=== PATIENT | female | born 1980 | race Caucasian/White ===

== ENCOUNTER 2017-09-10 20:38 | Emergency (ER) | END 2017-09-10 22:14 | disposition left against medical advice (07) ==

== ENCOUNTER 2018-07-17 08:32 | Outpatient (CLI) | END 2018-07-17 10:00 | disposition home or self-care (01) ==

== ENCOUNTER 2018-07-22 14:27 | Inpatient (IN) | END 2018-07-24 18:30 | disposition home or self-care (01) | DRG 807 ==

== ENCOUNTER 2018-12-01 15:50 | Inpatient (IN) | payer MEDICAID ==
[~2018-12-01] VITALS: Ht 162.6 cm; Wt 83.1 kg
[~2018-12-01 15:50] MED LIST: PRENAT PO
[2018-12-01] MEDS ORDERED: SOD CHLORIDE 0.9% 1,000 ML IV STA (16:01)
[2018-12-01] MEDS ORDERED: morphine 4 MG/ML VIAL IV STA ×2 (16:01→16:18)
[2018-12-01] MEDS ORDERED: ONDANSETRON 4 MG INJ IV STA ×2 (16:01→16:18)
[2018-12-01] MEDS ORDERED: LIDOCAINE/MYLANTA 40 ML BTL PO STA (16:18)
[2018-12-01] MEDS ORDERED: FAMOTIDINE 20 MG INJ IV STA (16:18)
[2018-12-01] MEDS ORDERED: HYDROmorphONE 0.5 MG/0.5 ML SYG IV STA (17:55)
--- NOTE | 2018-12-01 18:16 | ERD ---
ER Documentation Chief Complaint Chief Complaint SEVERE ABDOMINAL PAIN; VOMITTING HPI During the patient's encounter translation services were utilized Language: Guatemalan Source: In person 38-year-old female with history of gallstones presents with epigastric and right upper quadrant abdominal pain with migratory pain to the back. Pain is 8 out of 10, associated nonbloody nonbilious emesis. No chest pain or chest pressure. No fevers or chills. Pain present for approximately 12 hours. ROS All systems reviewed and are negative except as per history of present illness. Medications Home Meds Discontinued Reported Medications Multivit/Min/Fol Ac/Iron/Pren* ( S*) 1 Tab Tab, 1 TAB PO DAILY, TAB 03/28/16 Allergies Allergies: Coded Allergies: No Known Allergy (Unverified , 12/01/18) PMhx/Soc History of Surgery: No Anesthesia Reaction: No Hx 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 Disorder: No Hx Respiratory Disorders: No Hx Cardiac Disorders: No Hx Psychiatric Problems: No Hx Miscellaneous Medical Probl: Yes (GALL STONES ) Hx Alcohol Use: No Hx Substance Use: No Hx Tobacco Use: No Smoking Status: Never smoker FmHx Family History: No diabetes Physical Exam Vitals Vital Signs Date Temp Pulse Resp B/P (MAP) Pulse Ox O2 O2 Flow FiO2 Time Delivery Rate 12/01/18 56 18 140/76 99 Room Air 16:16 (97) 12/01/18 98.8 112 27 187/88 100 15:51 (121) Physical Exam General: Well developed, well nourished, no acute distress Head: Normocephalic, atraumatic. Eyes: Pupils equally reactive, EOM intact ENT: Moist mucous membranes Neck: Supple, no lymphadenopathy Respiratory: Lungs clear bilaterally, no distress Cardiovascular: RRR, no murmurs, rubs, or gallops Abdominal: Soft, mild epigastric tenderness without Wu sign. No tenderness to McBurney's point. : Deferred MSK: No edema, no unilateral swelling, 5/5 strength Neurologic: Alert and oriented, moving all extremities, normal speech, no focal weakness, no cerebellar signs Skin: No rash Psych: Normal mood Result Diagram: 12/01/18 1610 12/01/18 1610 Results 24 hrs Laboratory Tests Test 12/01/18 16:10 12/01/18 17:40 12/01/18 17:52 White Blood Count 13.0 10^3/ul Red Blood Count 5.51 10^6/ul Hemoglobin 15.5 g/dl Hematocrit 47.3 % Mean Corpuscular Volume 85.8 fl Mean Corpuscular Hemoglobin 28.1 pg Mean Corpuscular 32.8 g/dl Hemoglobin Concent Red Cell Distribution Width 13.0 % Platelet Count 322 10^3/UL Mean Platelet Volume 10.3 fl Immature Granulocytes % 0.400 % Neutrophils % 71.3 % Lymphocytes % 22.2 % Monocytes % 4.8 % Eosinophils % 1.0 % Basophils % 0.3 % Nucleated Red Blood Cells % 0.0 /100WBC Immature Granulocytes # 0.050 10^3/ul Neutrophils # 9.3 10^3/ul Lymphocytes # 2.9 10^3/ul Monocytes # 0.6 10^3/ul Eosinophils # 0.1 10^3/ul Basophils # 0.0 10^3/ul Nucleated Red Blood Cells # 0.0 10^3/ul Sodium Level 142 mmol/L Potassium Level 3.5 mmol/L Chloride Level 105 mmol/L Carbon Dioxide Level 26 mmol/L Anion Gap 11 Blood Urea Nitrogen 10 mg/dl Creatinine 0.74 mg/dl Est Glomerular Filtrat > 60 mL/min Rate mL/min Glucose Level 173 mg/dl Calcium Level 9.5 mg/dl Total Bilirubin 0.8 mg/dl Direct Bilirubin 0.00 mg/dl Indirect Bilirubin 0.8 mg/dl Aspartate Amino 611 IU/L Transf (AST/SGOT) Alanine 580 IU/L Aminotransferase (ALT/SGPT) Alkaline Phosphatase 248 IU/L Total Protein 7.9 g/dl Albumin 4.3 g/dl Globulin 3.60 g/dl Albumin/Globulin Ratio 1.19 Lipase 60906 U/L Urine Color YELLOW Urine Clarity SLIGHTLY CLOUDY Urine pH 5.0 Urine Specific [place] 1.009 Urine Ketones 1+ mg/dL Urine Nitrite NEGATIVE mg/dL Urine Bilirubin NEGATIVE mg/dL Urine Urobilinogen NEGATIVE mg/dL Urine Leukocyte Esterase NEGATIVE Georgie/ul Urine Microscopic RBC 1 /HPF Urine Microscopic WBC 4 /HPF Urine Squamous Epithelial Cells FEW /HPF Urine Hemoglobin 1+ mg/dL Urine Glucose NEGATIVE mg/dL Urine Total Protein NEGATIVE mg/dl POC Beta HCG, Qualitative NEGATIVE Current Medications Medications Dose Sig/Megan Start Time Status Last (Trade) Ordered Route PRN Stop Time Admin Dose Reason Admin Sodium 1,000 ml @ Q1H STAT 12/01/18 DC 12/01/18 Chloride 1,000 mls/hr IV 16:01 16:08 12/01/18 17:00 Morphine 4 mg ONCE STAT 12/01/18 DC 12/01/18 Sulfate IV 16:01 16:08 (morphine) 12/01/18 16:02 Ondansetron 4 mg ONCE STAT 12/01/18 DC 12/01/18 HCl (Zofran IV 16:01 16:08 Inj) 12/01/18 16:02 Morphine 4 mg ONCE STAT 12/01/18 DC 12/01/18 Sulfate IV 16:18 16:23 (morphine) 12/01/18 16:19 Ondansetron 4 mg ONCE STAT 12/01/18 DC 12/01/18 HCl (Zofran IV 16:18 16:23 Inj) 12/01/18 16:19 Famotidine 20 mg ONCE STAT 12/01/18 DC 12/01/18 (Pepcid Iv) IV 16:18 16:22 12/01/18 16:19 40 ml ONCE STAT 12/01/18 DC 12/01/18 Miscellaneous PO 16:18 16:23 Medication 12/01/18 16:20 (Gi Cocktail (2)) 1 mg ONCE STAT 12/01/18 DC 12/01/18 Hydromorphone IV 17:55 18:02 HCl 12/01/18 17:56 (Dilaudid) Ondansetron 4 mg BRIDGE ORDER 12/01/18 HCl (Zofran PRN IV 18:30 Inj) NAUSEA/VOMITI 12/02/18 18:29 NG 650 mg ER BRIDGE 12/01/18 Acetaminophen PRN PO 18:30 (Tylenol .MILD PAIN 12/02/18 18:29 Tab) 1-3 OR TEMP Procedures/MDM EKG, MONITORS, & DIAGNOSTIC IMAGING: Gallbladder ultrasound: IMPRESSION: Cholelithiasis without sonographic evidence of gallbladder wall thickening to suggest cholecystitis. Moderate dilatation of the common bile duct concerning for non-visualized choledocholithiasis. Mild heterogeneity of the pancreatic echotexture concerning for pancreatitis. MRCP can be obtained for further evaluation. RPTAT: [facility]ADD LAB INTERPRETATION: I reviewed the laboratory testing and it shows hepatobiliary obstruction with acute pancreatitis MEDICAL DECISION MAKING: Patient with known gallstones presents with abdominal pain, consider biliary colic, choledocholithiasis or gallstone pancreatitis. Patient is uncomfortable warranting ultrasound and laboratory testing. ER COURSE: * Laboratory testing and diagnostic imaging shows evidence of choledocholithiasis and gallstone pancreatitis. Patient given pain control, IV fluids and warrants hospitalization. * No signs or symptoms concerning for ascending cholangitis. No indication for antibiotics. The patient warrants GI consultation for MRCP, ERCP and likely nonemergent general surgeon consultation for cholecystectomy. CONSULTATION: Media Executive to be notified by the admitting team DISPOSITION PLAN: Accepting care team and consultations: I discussed the current laboratory data, diagnostic imaging and emergency care provided. Admitting team: Dr. Nixon Admitting team indication: Insurance directed Departure Diagnosis: Primary Impression: Acute gallstone pancreatitis Additional Impression: Choledocholithiasis Condition: Stable WENDY RODAS MD Dec 01, 2018 18:16
[2018-12-01] MEDS ORDERED: ONDANSETRON 4 MG INJ IV PRN ×2 (18:30→21:00)
[2018-12-01] MEDS ORDERED: ACETAMINOPHEN 325 MG TAB PO PRN (18:30)
[2018-12-01 20:23] VITALS: BP 123/75; PULSE 50; RESP 18
[2018-12-01 20:30] VITALS: Ht 162.6 cm; Wt 83.1 kg
[2018-12-01] MEDS ORDERED: NACL 0.9% 3 ML SYG IV SCH (21:00)
[2018-12-01] MEDS: DEXTROSE 5%-0.45% NACL 1,000 ML IV SCH (21:57)
[2018-12-01] MEDS: FAMOTIDINE 20 MG INJ IV SCH (21:58)
--- NOTE | 2018-12-01 23:41 | HP ---
Date/Time of Note Date/Time of Note DATE: 12/01/18 TIME: 23:41 Assessment/Plan VTE Prophylaxis SCD applied (from Nsg): Yes Pharmacological prophylaxis: NA/contraindicated Pharm contraindication: other (Awaiting surgical evaluation) Lines/Catheters IV Catheter Type (from Nrsg): Saline Lock Assessment/Plan Assessment/Plan 38-year-old female with a history of gallstones presents with abdominal pain secondary to gallstone pancreatitis and choledocholithiasis PLAN -Keep n.p.o. with IV fluid -Pain management -MRCP -GI and surgical consult Result Diagram: 12/01/18 1610 12/01/18 1610 Results 24hrs Laboratory Tests Test 12/01/18 16:10 12/01/18 17:40 12/01/18 17:52 White Blood Count 13.0 H Red Blood Count 5.51 #H Hemoglobin 15.5 # Hematocrit 47.3 #H Mean Corpuscular Volume 85.8 Mean Corpuscular Hemoglobin 28.1 L Mean Corpuscular 32.8 Hemoglobin Concent Red Cell Distribution Width 13.0 Platelet Count 322 # Mean Platelet Volume 10.3 Immature Granulocytes % 0.400 Neutrophils % 71.3 Lymphocytes % 22.2 Monocytes % 4.8 Eosinophils % 1.0 Basophils % 0.3 Nucleated Red Blood Cells % 0.0 Immature Granulocytes # 0.050 H Neutrophils # 9.3 H Lymphocytes # 2.9 Monocytes # 0.6 Eosinophils # 0.1 Basophils # 0.0 Nucleated Red Blood Cells # 0.0 Sodium Level 142 Potassium Level 3.5 Chloride Level 105 Carbon Dioxide Level 26 Anion Gap 11 Blood Urea Nitrogen 10 Creatinine 0.74 Est Glomerular Filtrat > 60 Rate mL/min Glucose Level 173 Calcium Level 9.5 Total Bilirubin 0.8 Direct Bilirubin 0.00 Indirect Bilirubin 0.8 Aspartate Amino 611 H Transf (AST/SGOT) Alanine 580 H Aminotransferase (ALT/SGPT) Alkaline Phosphatase 248 H Total Protein 7.9 Albumin 4.3 Globulin 3.60 H Albumin/Globulin Ratio 1.19 Lipase 42112 H Urine Color YELLOW Urine Clarity SLIGHTLY CLOUDY A Urine pH 5.0 Urine Specific [place] 1.009 Urine Ketones 1+ H Urine Nitrite NEGATIVE Urine Bilirubin NEGATIVE Urine Urobilinogen NEGATIVE Urine Leukocyte Esterase NEGATIVE Urine Microscopic RBC 1 Urine Microscopic WBC 4 Urine Squamous FEW Epithelial Cells Urine Hemoglobin 1+ H Urine Glucose NEGATIVE Urine Total Protein NEGATIVE POC Beta HCG, Qualitative NEGATIVE HPI/ROS Admit Date/Time Admit Date/Time Dec 01, 2018 at 18:02 Hx of Present Illness This is a 38-year-old female with a history of gallstones who presents the ER complaining of abdominal pain. Pain started hours before arrival to the ER. But somehow diffuse but mostly located in the mid abdomen radiating to her back and in the right upper quadrant area. When presented to ER, she is found to have elevated transaminases with AST and ALT of about 600. Lipase 31,000. Abdominal ultrasound shows the following Cholelithiasis without sonographic evidence of gallbladder wall thickening to suggest cholecystitis. Moderate dilatation of the common bile duct concerning for non-visualized choledocholithiasis. Mild heterogeneity of the pancreatic echotexture concerning for pancreatitis. . PMH/Family/Social Past Medical History Medical History: other (See HPI) Medications Current Medications Dextrose/Sodium Chloride 1,000 ml @ 120 mls/hr Q8H20M IV Last administered on 12/01/18at 21:57; Admin Dose 120 MLS/HR; Start 12/01/18 at 20:50 IV Flush (NS 3 ml) 3 ml PER PROTOCOL IV ; Start 12/01/18 at 21:00 Ondansetron HCl (Zofran Inj) 4 mg Q6H PRN IV NAUSEA/VOMITING; Start 12/01/18 at 21:00 Morphine Sulfate (morphine) 2 mg Q4H PRN IV .PAIN 7-10; Start 12/01/18 at 21:00 Famotidine (Pepcid Iv) 20 mg Q12 IV Last administered on 12/01/18at 21:58; Admin Dose 20 MG; Start 12/01/18 at 21:00 Coded Allergies: No Known Allergy (Unverified , 12/01/18) Past Surgical History Past Surgical Hx: other (See HPI) Family History Significant Family History: no pertinent family hx Social History Alcohol Use: none Smoking Status: Never smoker Drug Use: none Exam/Review of Systems Vital Signs Vitals Vital Signs Date Temp Pulse Resp B/P (MAP) Pulse Ox O2 O2 Flow FiO2 Time Delivery Rate 12/01/18 98.0 50 18 123/75 100 20:23 (91) 12/01/18 Room Air 18:51 Exam Constitutional: alert, oriented, well developed Head: normocephalic, atraumatic Eyes: EOMI, PERRL Respiratory: clear to auscultation, normal air movement Cardiovascular: regular rate and rhythm Gastrointestinal: tender Extremities: normal pulses KIERA GREER MD Dec 01, 2018 23:41
[2018-12-02 01:57] VITALS: BP 138/73; PULSE 52; RESP 16
[2018-12-02] MEDS: morphine 2 MG INJ IV PRN ×2 (02:07→17:15)
[2018-12-02] MEDS: DEXTROSE 5%-0.45% NACL 1,000 ML IV SCH ×4 (05:10→17:17)
[2018-12-02 07:26] VITALS: BP 127/75; PULSE 55; RESP 18
[2018-12-02] MEDS: FAMOTIDINE 20 MG INJ IV SCH ×2 (09:41→21:06)
--- NOTE | 2018-12-02 11:16 | PN ---
Date/Time of Note Date/Time of Note DATE: 12/02/18 TIME: 11:14 Assessment/Plan VTE Prophylaxis Risk score (from Ns)>0 risk: 1 SCD applied (from Ns): Yes Pharmacological prophylaxis: NA/contraindicated Pharm contraindication: low risk/ambulating Lines/Catheters IV C[facility]ter Type (from [facility]): Peripheral IV Assessment/Plan Hospital Course SUBJECTIVE: Continues to have abdominal pain. Denies any nausea /vomiting. OBJECTIVE: Physical Exam General: Obese, 38 year-old female lying in bed in no apparent distress. HEENT: Normocephalic, atraumatic. Eyes: Anicteric sclerae, conjunctivae clear. ENT: Nasal septum midline, oral mucosa moist. Neck supple, no JVD noticed. Respiratory: Bilaterally clear breath sounds. No use of accessory muscles of respiration. No adventitious breath sounds. Cardiovascular: S1, S2 heard. No murmurs or gallops. Abdomen: Soft and nondistended. Epigastric tenderness. Bowel sounds positive in all 4 quadrants. Genitourinary: Deferred. Extremities: No cyanosis, no clubbing, no edema. Peripheral pulses palpable. Neurologic: Cranial nerves II through XII grossly intact. The patient is awake, alert, and oriented. Skin: Normal skin turgor. No skin rashes. Labs & Vitals per chart ASSESSMENT & PLAN 38-year-old female with past medical history of gallstones who came to the emergency room with chief complaint of abdominal pain with evidence of underlying cholelithiasis and moderate dilation of the common bile duct concerning for choledocholithiasis. The patient also had underlying transaminitis without hyperbilirubinemia and pancreatitis. The patient was admitted to inpatient setting for further treatment and evaluation. 1. Symptomatic cholelithiasis; Possible underlying choledocholithiasis. -Keep n.p.o. -Continue pain control. -General surgery consult has been obtained -Gastroenterology consult has been obtained. -Pending MRCP. 2. Transaminitis without hyperbilirubinemia. -Most probably secondary to #1. -Management as per #1. 3. Pancreatitis. -Most probably gallstone pancreatitis. -Trend lipase levels. -Continue n.p.o. -Continue aggressive hydration. 4. Obesity. -BMI more than 31 kg/m square. -Will advise weight reduction. 5. Breast-feeding status. - consult. 6. Fluids, electrolytes, and nutrition. -N.p.o. except for medications. -Continue IV fluids. 7 DVT prophylaxis -Bilateral SCDs.. 8. Plan. -Continue pain control. -Continue IV fluids. -Await MRCP. The patient was seen in collaboration with Dr. Patino. Result Diagram: 12/02/18 0449 12/02/189 Results 24hrs Laboratory Tests Test 12/01/18 16:10 12/01/18 17:40 12/01/18 17:52 12/02/18 04:49 White Blood Count 13.0 H 11.0 H Red Blood Count 5.51 #H 5.06 Hemoglobin 15.5 # 14.2 Hematocrit 47.3 #H 44.1 Mean Corpuscular 85.8 87.2 Volume Mean Corpuscular 28.1 L 28.1 L Hemoglobin Mean Corpuscular 32.8 32.2 Hemoglobin Concen t Red Cell 13.0 13.2 Distribution Width Platelet Count 322 # 262 Mean Platelet 10.3 10.4 Volume Immature 0.400 0.300 Granulocytes % Neutrophils % 71.3 83.0 H Lymphocytes % 22.2 9.3 L Monocytes % 4.8 7.2 Eosinophils % 1.0 0.0 Basophils % 0.3 0.2 Nucleated Red 0.0 0.0 Blood Cells % Immature 0.050 H 0.030 Granulocytes # Neutrophils # 9.3 H 9.1 H Lymphocytes # 2.9 1.0 Monocytes # 0.6 0.8 Eosinophils # 0.1 0.0 Basophils # 0.0 0.0 Nucleated Red 0.0 0.0 Blood Cells # Sodium Level 142 141 Potassium Level 3.5 3.8 Chloride Level 105 104 Carbon Dioxide 26 29 Level Anion Gap 11 8 Blood Urea 10 10 Nitrogen Creatinine 0.74 0.60 Est Glomerular > 60 > 60 Filtrat Rate mL/min Glucose Level 173 133 # Calcium Level 9.5 8.3 L Total Bilirubin 0.8 0.5 Direct Bilirubin 0.00 0.00 Indirect 0.8 0.5 Bilirubin Aspartate Amino 611 H 494 H Transf (AST/SGOT) Alanine 580 H 593 H Aminotransferase (ALT/SGPT) Alkaline 248 H 192 H Phosphatase Total Protein 7.9 6.7 # Albumin 4.3 3.6 Globulin 3.60 H 3.10 Albumin/Globulin 1.19 1.16 Ratio Lipase 49944 H Urine Color YELLOW Urine Clarity SLIGHTLY CLOUDY A Urine pH 5.0 Urine Specific 1.009 [place] Urine Ketones 1+ H Urine Nitrite NEGATIVE Urine Bilirubin NEGATIVE Urine NEGATIVE Urobilinogen Urine Leukocyte NEGATIVE Esterase Urine Microscopic 1 RBC Urine Microscopic 4 WBC Urine Squamous FEW Epithelial Cells Urine Hemoglobin 1+ H Urine Glucose NEGATIVE Urine Total NEGATIVE Protein POC Beta HCG, NEGATIVE Qualitative Magnesium Level 2.2 Test 12/02/18 09:24 Prothrombin Time 13.8 Prothrombin Time 1.1 Ratio INR International 1.05 Normalized Ratio Exam/Review of Systems Exam Vitals Vital Signs Date Temp Pulse Resp B/P (MAP) Pulse Ox O2 O2 Flow FiO2 Time Delivery Rate 12/02/18 98.3 55 18 127/75 99 07:26 (92) 12/01/18 Room Air 18:51 Intake and Output 12/01/18 12/01/18 12/02/18 1515:00 23:00 07:00 IntakeIntake Total 1000 ml BalanceBalance 1000 ml Results Results 24hrs Laboratory Tests Test 12/01/18 16:10 12/01/18 17:40 12/01/18 17:52 12/02/18 04:49 White Blood Count 13.0 H 11.0 H Red Blood Count 5.51 #H 5.06 Hemoglobin 15.5 # 14.2 Hematocrit 47.3 #H 44.1 Mean Corpuscular 85.8 87.2 Volume Mean Corpuscular 28.1 L 28.1 L Hemoglobin Mean Corpuscular 32.8 32.2 Hemoglobin Concen t Red Cell 13.0 13.2 Distribution Width Platelet Count 322 # 262 Mean Platelet 10.3 10.4 Volume Immature 0.400 0.300 Granulocytes % Neutrophils % 71.3 83.0 H Lymphocytes % 22.2 9.3 L Monocytes % 4.8 7.2 Eosinophils % 1.0 0.0 Basophils % 0.3 0.2 Nucleated Red 0.0 0.0 Blood Cells % Immature 0.050 H 0.030 Granulocytes # Neutrophils # 9.3 H 9.1 H Lymphocytes # 2.9 1.0 Monocytes # 0.6 0.8 Eosinophils # 0.1 0.0 Basophils # 0.0 0.0 Nucleated Red 0.0 0.0 Blood Cells # Sodium Level 142 141 Potassium Level 3.5 3.8 Chloride Level 105 104 Carbon Dioxide 26 29 Level Anion Gap 11 8 Blood Urea 10 10 Nitrogen Creatinine 0.74 0.60 Est Glomerular > 60 > 60 Filtrat Rate mL/min Glucose Level 173 133 # Calcium Level 9.5 8.3 L Total Bilirubin 0.8 0.5 Direct Bilirubin 0.00 0.00 Indirect 0.8 0.5 Bilirubin Aspartate Amino 611 H 494 H Transf (AST/SGOT) Alanine 580 H 593 H Aminotransferase (ALT/SGPT) Alkaline 248 H 192 H Phosphatase Total Protein 7.9 6.7 # Albumin 4.3 3.6 Globulin 3.60 H 3.10 Albumin/Globulin 1.19 1.16 Ratio Lipase 59535 H Urine Color YELLOW Urine Clarity SLIGHTLY CLOUDY A Urine pH 5.0 Urine Specific 1.009 [place] Urine Ketones 1+ H Urine Nitrite NEGATIVE Urine Bilirubin NEGATIVE Urine NEGATIVE Urobilinogen Urine Leukocyte NEGATIVE Esterase Urine Microscopic 1 RBC Urine Microscopic 4 WBC Urine Squamous FEW Epithelial Cells Urine Hemoglobin 1+ H Urine Glucose NEGATIVE Urine Total NEGATIVE Protein POC Beta HCG, NEGATIVE Qualitative Magnesium Level 2.2 Test 12/02/18 09:24 Prothrombin Time 13.8 Prothrombin Time 1.1 Ratio INR International 1.05 Normalized Ratio Medications Medication Current Medications Dextrose/Sodium Chloride 1,000 ml @ 120 mls/hr Q8H20M IV Last administered on 12/02/18at 06:59; Admin Dose 120 MLS/HR; Start 12/01/18 at 20:50 IV Flush (NS 3 ml) 3 ml PER PROTOCOL IV ; Start 12/01/18 at 21:00 Ondansetron HCl (Zofran Inj) 4 mg Q6H PRN IV NAUSEA/VOMITING; Start 12/01/18 at 21:00 Morphine Sulfate (morphine) 2 mg Q4H PRN IV .PAIN 7-10 Last administered on at 02:07; Admin Dose 2 MG; Start 12/01/18 at 21:00 Famotidine (Pepcid Iv) 20 mg Q12 IV Last administered on 12/02/18at 09:41; Admin Dose 20 MG; Start 12/01/18 at 21:00 SE RENE NP Dec 02, 2018 11:16
--- NOTE | 2018-12-02 12:54 | PREAC ---
Date/Time of Note Date/Time of Note DATE: 12/02/18 TIME: 12:51 Anesthesia Eval and Record Evaluation Time Pre-Procedure Interview DATE: 12/02/18 TIME: 12:51 Age 38 Sex female NPO: 8 hrs Preoperative diagnosis cholelithiasis, pancreatitis, mod.dilation CBD, transaminitis without hyperbilirubinemia Planned procedure ERCP DR LYMAN Past Medical History Past Medical History: Includes Hepatic: Other (GALLSTONE PANCREATITIS) GI: Obesity (bmi 31 ) Psych: Anxiety : Other (has a 4-month old baby, lactating) Surgery & Anesthesia Issues No known issue Meds Anticoagulation: No Beta Ernestina within 24 hr: No Reason Beta Ernestina not given: Pt. not on B-Ernestina Discontinued Reported Medications Multivit/Min/Fol Ac/Iron/Pren* ( S*) 1 Tab Tab, 1 TAB PO DAILY, TAB 03/28/16 Current Medications Dextrose/Sodium Chloride 1,000 ml @ 120 mls/hr Q8H20M IV Last administered on 12/02/18at 06:59; Admin Dose 120 MLS/HR; Start 12/01/18 at 20:50 IV Flush (NS 3 ml) 3 ml PER PROTOCOL IV ; Start 12/01/18 at 21:00 Ondansetron HCl (Zofran Inj) 4 mg Q6H PRN IV NAUSEA/VOMITING; Start 12/01/18 at 21:00 Morphine Sulfate (morphine) 2 mg Q4H PRN IV .PAIN 7-10 Last administered on 12/02/18at 02:07; Admin Dose 2 MG; Start 12/01/18 at 21:00 Famotidine (Pepcid Iv) 20 mg Q12 IV Last administered on 12/02/18at 09:41; Admin Dose 20 MG; Start 12/01/18 at 21:00 Meds reviewed: Yes Allergies Coded Allergies: No Known Allergy (Unverified , 12/01/18) Allergies Reviewed: Yes Labs/Studies Labs Reviewed: Reviewed by anesthesiologist Result Diagram: 12/02/189 12/02/189 Laboratory Tests 12/02/18 04:49 test: Negative (serum HCG negative ) Pre-procedure Exam Last vitals Vital Signs Date Temp Pulse Resp B/P (MAP) Pulse Ox O2 O2 Flow FiO2 Time Delivery Rate 12/02/18 98.3 55 18 127/75 99 07:26 (92) 12/01/18 Room Air 18:51 Airway: Adequate mouth opening, Adequate thyromental dist Mallampati: Mallampati II Teeth: Normal Lung: Normal Heart: Normal ASA Physical Status ASA physical status: 2 Emergency: E Planned Anesthetic General/MAC: ETT Planned Pain Management Parenteral pain med, Local by surgeon Pre-operative Attestations Prior to commencing anesthesia and surgery, the patient was re-evaluated, there was verification of: *The patient's identity *The results of appropriate recent lab work and preoperative vital signs *The above evaluation not changing prior to induction *Anesthetic plan, risk benefits, alternative and complications discussed with patient/family; questions answered; patient/family understands, accepts and wishes to proceed. JANIS MAHARAJ Dec 02, 2018 12:54
--- NOTE | 2018-12-02 13:38 | CONS ---
DATE OF ADMISSION: 12/01/2018 DATE OF CONSULTATION: TYPE OF CONSULTATION: Gastroenterology. Dear Dr. Nixon: Thank you for asking me to see Mrs. Shalom Zelaya in GI consultation. HISTORY OF PRESENT ILLNESS: As you know, patient is a 38-year-old female who has been exper iencing epigastric right upper quadrant pain for about 12 hours prior to the admission, had nausea an d minimal vomiting which is not bleeding, no fever, no jaundice, no such pain in the past. She was f ound to have cholelithiasis and biliary dilatation on ultrasound. White count was 13,000 on admissio n. Today, it is 11,000. AST is 611 and then came down to 494, ALT 593, alkaline phosphatase is 192, bilirubin is 0.8. Lipase is 30,789. SOCIAL HISTORY: The patient does not smoke or drink. MEDICATIONS PRIOR TO ADMISSION: Include none. Currently in the hospital, she is on: 1. Famotidine. 2. Dilaudid. 3. Zofran. PHYSICAL EXAMINATION: GENERAL: The patient is a 38-year-old female who at this time is alert, well built. VITAL SIGNS: She is afebrile, blood pressure is 127/75. CARDIOVASCULAR: Normal heart sounds. RESPIRATORY: Normal breath sounds. ABDOMEN: Showed unremarkable findings except minimal epigastric and right upper quadrant tenderness. CLINICAL IMPRESSION: She seems to have gallstone pancreatitis. She probably has impacted ampullary stone with the choledocholithiasis and gallstones. PLAN: At this time, I recommend ERCP. Also, this patient will need a surgical consultation. Once again, doctor, thank you for this consultation. Dictated By: DILCIA LYMAN MD NC/NTS Conf#: [id number] DID#: [id number] CC: KIERA GREER MD; TANISHA NIXON MD; SE RENE VIBRATION ANALYST;*[facility]*
[2018-12-02 15:27] VITALS: BP 121/74; PULSE 60; RESP 18
[2018-12-02 19:45] VITALS: BP 128/74; PULSE 96; RESP 18
[2018-12-03] VITALS (15 sets, daily range): BP systolic 98–126; BP diastolic 51–80; PULSE 56–84; RESP 15–25
[2018-12-03] MEDS: DEXTROSE 5%-0.45% NACL 1,000 ML IV SCH ×4 (01:44→22:50)
[2018-12-03] MEDS: FAMOTIDINE 20 MG INJ IV SCH ×2 (09:07→21:35)
[2018-12-03] MEDS: morphine 2 MG INJ IV PRN (09:08)
--- NOTE | 2018-12-03 11:18 | PN ---
Date/Time of Note Date/Time of Note DATE: 12/03/18 TIME: 11:15 Assessment/Plan VTE Prophylaxis Risk score (from Ns)>0 risk: 0 SCD applied (from Nsg): Yes Pharmacological prophylaxis: NA/contraindicated Pharm contraindication: low risk/ambulating Lines/Catheters IV Catheter Type (from Nrsg): Peripheral IV Urinary Cath still in place: No Assessment/Plan Hospital Course SUBJECTIVE: Continues to have abdominal pain. Denies any nausea /vomiting. OBJECTIVE: Physical Exam General: Obese, 38 year-old female lying in bed in no apparent distress. HEENT: Normocephalic, atraumatic. Eyes: Anicteric sclerae, conjunctivae clear. ENT: Nasal septum midline, oral mucosa moist. Neck supple, no JVD noticed. Respiratory: Bilaterally clear breath sounds. No use of accessory muscles of respiration. No adventitious breath sounds. Cardiovascular: S1, S2 heard. No murmurs or gallops. Abdomen: Soft and nondistended. Epigastric tenderness. Bowel sounds positive in all 4 quadrants. Genitourinary: Deferred. Extremities: No cyanosis, no clubbing, no edema. Peripheral pulses palpable. Neurologic: Cranial nerves II through XII grossly intact. The patient is awake, alert, and oriented. Skin: Normal skin turgor. No skin rashes. Labs & Vitals per chart ASSESSMENT & PLAN 38-year-old female with past medical history of gallstones who came to the emergency room with chief complaint of abdominal pain with evidence of underlying cholelithiasis and moderate dilation of the common bile duct concerning for choledocholithiasis. The patient also had underlying transaminitis without hyperbilirubinemia and pancreatitis. The patient was admitted to inpatient setting for further treatment and evaluation. 1. Symptomatic cholelithiasis. -Keep n.p.o. -Continue pain control. -General surgery consult has been obtained -Gastroenterology consult has been obtained. -MRCP negative for choledocholithiasis. -Pending ERCP. 2. Transaminitis without hyperbilirubinemia. -Most probably secondary to #1. -Management as per #1. 3. Pancreatitis. -Most probably gallstone pancreatitis. -Trend lipase levels. -Continue n.p.o. -Continue aggressive hydration. 4. Obesity. -BMI more than 31 kg/m square. -Will advise weight reduction. 5. Breast-feeding status. -Continue pumping. 6. Fluids, electrolytes, and nutrition. -N.p.o. except for medications. -Continue IV fluids. 7 DVT prophylaxis -Bilateral SCDs. 8. Plan. -Continue pain control. -Continue IV fluids. -Await ERCP. The patient was seen in collaboration with Dr. Patino. Result Diagram: 12/03/18 0448 12/03/18 0448 Results 24hrs Laboratory Tests Test 12/03/18 04:48 White Blood Count 10.3 Red Blood Count 4.85 Hemoglobin 13.6 Hematocrit 41.7 Mean Corpuscular Volume 86.0 Mean Corpuscular Hemoglobin 28.0 L Mean Corpuscular Hemoglobin Concent 32.6 Red Cell Distribution Width 13.1 Platelet Count 229 Mean Platelet Volume 10.1 Immature Granulocytes % 0.400 Neutrophils % 82.4 H Lymphocytes % 10.0 L Monocytes % 6.2 Eosinophils % 0.8 Basophils % 0.2 Nucleated Red Blood Cells % 0.0 Immature Granulocytes # 0.040 H Neutrophils # 8.5 H Lymphocytes # 1.0 Monocytes # 0.6 Eosinophils # 0.1 Basophils # 0.0 Nucleated Red Blood Cells # 0.0 Sodium Level 137 Potassium Level 3.2 L Chloride Level 104 Carbon Dioxide Level 29 Anion Gap 4 L Blood Urea Nitrogen 7 Creatinine 0.54 Est Glomerular Filtrat Rate mL/min > 60 Glucose Level 105 Hemoglobin A1c 5.0 Calcium Level 8.2 L Phosphorus Level 2.8 Magnesium Level 2.2 Total Bilirubin 0.7 Direct Bilirubin 0.00 Indirect Bilirubin 0.7 Aspartate Amino Transf (AST/SGOT) 113 H Alanine Aminotransferase (ALT/SGPT) 323 H Alkaline Phosphatase 164 H Total Protein 6.2 Albumin 3.2 L Globulin 3.00 Albumin/Globulin Ratio 1.06 Amylase Level 1470 H Lipase 5990 H Exam/Review of Systems Exam Vitals Vital Signs Date Temp Pulse Resp B/P (MAP) Pulse Ox O2 O2 Flow FiO2 Time Delivery Rate 12/03/18 97.5 84 18 114/74 94 07:13 (87) 12/01/18 Room Air 18:51 Intake and Output 12/02/18 12/02/18 12/03/18 1515:00 23:00 07:00 IntakeIntake Total 1000 ml 1000 ml BalanceBalance 1000 ml 1000 ml Results Results 24hrs Laboratory Tests Test 12/03/18 04:48 White Blood Count 10.3 Red Blood Count 4.85 Hemoglobin 13.6 Hematocrit 41.7 Mean Corpuscular Volume 86.0 Mean Corpuscular Hemoglobin 28.0 L Mean Corpuscular Hemoglobin Concent 32.6 Red Cell Distribution Width 13.1 Platelet Count 229 Mean Platelet Volume 10.1 Immature Granulocytes % 0.400 Neutrophils % 82.4 H Lymphocytes % 10.0 L Monocytes % 6.2 Eosinophils % 0.8 Basophils % 0.2 Nucleated Red Blood Cells % 0.0 Immature Granulocytes # 0.040 H Neutrophils # 8.5 H Lymphocytes # 1.0 Monocytes # 0.6 Eosinophils # 0.1 Basophils # 0.0 Nucleated Red Blood Cells # 0.0 Sodium Level 137 Potassium Level 3.2 L Chloride Level 104 Carbon Dioxide Level 29 Anion Gap 4 L Blood Urea Nitrogen 7 Creatinine 0.54 Est Glomerular Filtrat Rate mL/min > 60 Glucose Level 105 Hemoglobin A1c 5.0 Calcium Level 8.2 L Phosphorus Level 2.8 Magnesium Level 2.2 Total Bilirubin 0.7 Direct Bilirubin 0.00 Indirect Bilirubin 0.7 Aspartate Amino Transf (AST/SGOT) 113 H Alanine Aminotransferase (ALT/SGPT) 323 H Alkaline Phosphatase 164 H Total Protein 6.2 Albumin 3.2 L Globulin 3.00 Albumin/Globulin Ratio 1.06 Amylase Level 1470 H Lipase 5990 H Medications Medication Current Medications Dextrose/Sodium Chloride 1,000 ml @ 120 mls/hr Q8H20M IV Last administered on 12/03/18at 01:44; Admin Dose 120 MLS/HR; Start 12/01/18 at 20:50 IV Flush (NS 3 ml) 3 ml PER PROTOCOL IV ; Start 12/01/18 at 21:00 Ondansetron HCl (Zofran Inj) 4 mg Q6H PRN IV NAUSEA/VOMITING Last administered on 12/02/18at 13:34; Admin Dose 4 MG; Start 12/01/18 at 21:00 Morphine Sulfate (morphine) 2 mg Q4H PRN IV .PAIN 7-10 Last administered on 12/03/18at 09:08; Admin Dose 2 MG; Start 12/01/18 at 21:00 Famotidine (Pepcid Iv) 20 mg Q12 IV Last administered on 12/03/18at 09:07; Admin Dose 20 MG; Start 12/01/18 at 21:00 Potassium Chloride 100 ml @ 50 mls/hr Q2H IVPB ; Start 12/03/18 at 11:00; Stop 12/03/18 at 14:59 SE RENE NP Dec 03, 2018 11:18
[2018-12-03] MEDS: POTASSIUM CHLORIDE 100 ML IVPB SCH ×3 (12:13→22:46)
[2018-12-03] MEDS ORDERED: IOHEXOL 300MG/ML 30 ML BTL ONE (13:36)
[2018-12-03] MEDS ORDERED: PROPOFOL 20 ML ONE (14:15)
[2018-12-03] MEDS ORDERED: SUCCINYLCHOLINE CHLORIDE 100 MG/5 ML SYG IV ONE (14:15)
[2018-12-03] MEDS ORDERED: NEOSTIGMINE 3 MG/3 ML SYRINGE ONE ×2 (14:15→15:30)
[2018-12-03] MEDS ORDERED: ROCURONIUM 50 MG INJ ONE (14:15)
[2018-12-03] MEDS ORDERED: GLYCOPYRROLATE 0.4 MG INJ ONE ×2 (14:15→15:30)
[2018-12-03] MEDS ORDERED: LIDOCAINE 2% (SDV) 5 ML INJ ONE (14:15)
[2018-12-03] MEDS ORDERED: hydrALAzine 20 MG INJ IV PRN (15:00)
[2018-12-03] MEDS ORDERED: MEPERIDINE 25 MG INJ IV PRN (15:00)
[2018-12-03] MEDS ORDERED: FENTAnyl 50 MCG/ML VIAL IV PRN ×3 (15:00)
[2018-12-03] MEDS ORDERED: EPHEDrine SULFATE 50 MG/5 ML SYG IV PRN (15:00)
[2018-12-03] MEDS ORDERED: ONDANSETRON 4 MG INJ IV PRN (15:00)
[2018-12-03] MEDS ORDERED: DIPHENHYDRAMINE 50 MG INJ IV PRN (15:00)
[2018-12-03] MEDS ORDERED: LABETALOL HCL 20MG INJ IV PRN (15:00)
[2018-12-03] MEDS ORDERED: METOCLOPRAMIDE 10 MG INJ IV PRN (15:00)
[2018-12-03] MEDS ORDERED: MIDAZOLAM 1 MG/ML 2 ML INJ IV PRN (15:00)
[2018-12-03] MEDS ORDERED: METOCLOPRAMIDE 10 MG INJ ONE (15:27)
[2018-12-03] MEDS ORDERED: ONDANSETRON 4 MG INJ ONE (15:27)
--- NOTE | 2018-12-03 15:53 | OPR ---
Date/Time of Note Date/Time of Note DATE: 12/03/18 TIME: 15:50 Operative Report Preoperative Diagnosis cbd stones stricture Postoperative Diagnosis dilated cbd ?stricture distal cbd sludge cbd normal PD Operation/Procedure Performed ercp ers balloon sweep cbd and PD stents Surgeon see signature line Technical Instructor none Second Technical Instructor: JESUS WALKER MD Anesthesia Type: general Anesthesiologist: PHILIPPE LEWIS MD Estimated Blood Loss: none Transfusion none Specimen none Grafts/Implants none Complications none Pt Condition Post Procedure: stable Disposition: PACU Indications cbd stones vs stricture Procedure Description ercp sphincterotomy done balloon sweep done cbd and PD stents placed DILCIA LYMAN MD Dec 03, 2018 15:53
[2018-12-03] MEDS ORDERED: FENTAnyl 50 MCG/ML VIAL ONE (15:56)
[2018-12-04 00:28] VITALS: BP 118/72; PULSE 84; RESP 18
--- NOTE | 2018-12-04 07:14 | PN ---
Date/Time of Note Date/Time of Note DATE: 12/04/18 TIME: 07:12 Assessment/Plan VTE Prophylaxis Risk score (from Ns)>0 risk: 0 SCD applied (from Ns): Yes Pharmacological prophylaxis: NA/contraindicated Pharm contraindication: low risk/ambulating Lines[facility] Urinary Cath still in place: No Assessment/Plan Hospital Course SUBJECTIVE: Denies any nausea /vomiting or abdominal pain. OBJECTIVE: Physical Exam General: Obese, 38 year-old female lying in bed in no apparent distress. HEENT: Normocephalic, atraumatic. Eyes: Anicteric sclerae, conjunctivae clear. ENT: Nasal septum midline, oral mucosa moist. Neck supple, no JVD noticed. Respiratory: Bilaterally clear breath sounds. No use of accessory muscles of respiration. No adventitious breath sounds. Cardiovascular: S1, S2 heard. No murmurs or gallops. Abdomen: Soft and nondistended. Non-tender. Bowel sounds positive in all 4 quadrants. Genitourinary: Deferred. Extremities: No cyanosis, no clubbing, no edema. Peripheral pulses palpable. Neurologic: Cranial nerves II through XII grossly intact. The patient is awake, alert, and oriented. Skin: Normal skin turgor. No skin rashes. Labs & Vitals per chart ASSESSMENT & PLAN 38-year-old female with past medical history of gallstones who came to the emergency room with chief complaint of abdominal pain with evidence of underlying cholelithiasis and moderate dilation of the common bile duct concerning for choledocholithiasis. The patient also had underlying transaminitis without hyperbilirubinemia and pancreatitis. The patient was admitted to inpatient setting for further treatment and evaluation. 1. Symptomatic cholelithiasis. -Keep n.p.o. -Continue pain control. -MRCP negative for choledocholithiasis. -Status post ERCP on 12/03/2018 that showed stricture of distal CBD and sludge in the CBD; S/P balloon sweep of CBD with placement of CBD and pancreatic duct stents. 2. Transaminitis without hyperbilirubinemia. -Most probably secondary to #1. -Management as per #1. 3. Pancreatitis. -Most probably gallstone pancreatitis. -Trend lipase levels. -Continue n.p.o. -Continue aggressive hydration. 4. Obesity. -BMI more than 31 kg/m square. -Will advise weight reduction. 5. Breast-feeding status. -Continue pumping. 6. Fluids, electrolytes, and nutrition. -N.p.o. except for medications. -Continue IV fluids. 7 DVT prophylaxis -Bilateral SCDs. 8. Plan. -Continue pain control. -Continue IV fluids. -S/P ERCP on 12/03/2018. -Await surgical evaluation. The patient was seen in collaboration with Dr. Patino. Result Diagram: 12/04/189 12/04/18448 Results 24hrs Laboratory Tests Test 12/04/18 04:49 White Blood Count 9.3 Red Blood Count 4.33 Hemoglobin 12.2 Hematocrit 37.9 Mean Corpuscular Volume 87.5 Mean Corpuscular Hemoglobin 28.2 L Mean Corpuscular Hemoglobin Concent 32.2 Red Cell Distribution Width 12.4 Platelet Count 196 Mean Platelet Volume 10.3 Immature Granulocytes % 0.200 Neutrophils % 77.3 H Lymphocytes % 12.5 L Monocytes % 7.7 Eosinophils % 2.0 Basophils % 0.3 Nucleated Red Blood Cells % 0.0 Immature Granulocytes # 0.020 Neutrophils # 7.2 Lymphocytes # 1.2 Monocytes # 0.7 Eosinophils # 0.2 Basophils # 0.0 Nucleated Red Blood Cells # 0.0 Sodium Level 140 Potassium Level 3.3 L Chloride Level 101 Carbon Dioxide Level 32 H Anion Gap 7 Blood Urea Nitrogen 8 Creatinine 0.60 Est Glomerular Filtrat Rate mL/min > 60 Glucose Level 93 Calcium Level 8.2 L Phosphorus Level 2.9 Magnesium Level 2.2 Total Bilirubin 0.6 Direct Bilirubin 0.00 Indirect Bilirubin 0.6 Aspartate Amino Transf (AST/SGOT) 60 H Alanine Aminotransferase (ALT/SGPT) 205 H Alkaline Phosphatase 133 H Total Protein 6.0 L Albumin 3.0 L Globulin 3.00 Albumin/Globulin Ratio 1.00 Amylase Level 545 #H Lipase 1343 H Exam/Review of Systems Exam Vitals Vital Signs Date Temp Pulse Resp B/P (MAP) Pulse Ox O2 O2 Flow FiO2 Time Delivery Rate 12/04/18 98.4 84 18 118/72 100 Room Air 00:28 (87) 12/03/18 2.0 16:57 Intake and Output 12/03/18 12/03/18 12/04/18 1414:59 22:59 06:59 IntakeIntake Total 120 ml 100 ml BalanceBalance 120 ml 100 ml Results Results 24hrs Laboratory Tests Test 12/04/18 04:49 White Blood Count 9.3 Red Blood Count 4.33 Hemoglobin 12.2 Hematocrit 37.9 Mean Corpuscular Volume 87.5 Mean Corpuscular Hemoglobin 28.2 L Mean Corpuscular Hemoglobin Concent 32.2 Red Cell Distribution Width 12.4 Platelet Count 196 Mean Platelet Volume 10.3 Immature Granulocytes % 0.200 Neutrophils % 77.3 H Lymphocytes % 12.5 L Monocytes % 7.7 Eosinophils % 2.0 Basophils % 0.3 Nucleated Red Blood Cells % 0.0 Immature Granulocytes # 0.020 Neutrophils # 7.2 Lymphocytes # 1.2 Monocytes # 0.7 Eosinophils # 0.2 Basophils # 0.0 Nucleated Red Blood Cells # 0.0 Sodium Level 140 Potassium Level 3.3 L Chloride Level 101 Carbon Dioxide Level 32 H Anion Gap 7 Blood Urea Nitrogen 8 Creatinine 0.60 Est Glomerular Filtrat Rate mL/min > 60 Glucose Level 93 Calcium Level 8.2 L Phosphorus Level 2.9 Magnesium Level 2.2 Total Bilirubin 0.6 Direct Bilirubin 0.00 Indirect Bilirubin 0.6 Aspartate Amino Transf (AST/SGOT) 60 H Alanine Aminotransferase (ALT/SGPT) 205 H Alkaline Phosphatase 133 H Total Protein 6.0 L Albumin 3.0 L Globulin 3.00 Albumin/Globulin Ratio 1.00 Amylase Level 545 #H Lipase 1343 H Medications Medication Current Medications Dextrose/Sodium Chloride 1,000 ml @ 120 mls/hr Q8H20M IV Last administered on 12/03/18at 12:14; Admin Dose 120 MLS/HR; Start 12/01/18 at 20:50 IV Flush (NS 3 ml) 3 ml PER PROTOCOL IV ; Start 12/01/18 at 21:00 Ondansetron HCl (Zofran Inj) 4 mg Q6H PRN IV NAUSEA/VOMITING Last administered on 12/02/18at 13:34; Admin Dose 4 MG; Start 12/01/18 at 21:00 Morphine Sulfate (morphine) 2 mg Q4H PRN IV .PAIN 7-10 Last administered on 12/03/18at 09:08; Admin Dose 2 MG; Start 12/01/18 at 21:00 Famotidine (Pepcid Iv) 20 mg Q12 IV Last administered on 12/03/18at 21:35; Admin Dose 20 MG; Start 12/01/18 at 21:00 SE RENE NP Dec 04, 2018 07:14
[2018-12-04] MEDS ORDERED: POTASSIUM CHLORIDE 100 ML IVPB ONE (07:30)
[2018-12-04 07:34] VITALS: BP 95/54; PULSE 63; RESP 18
[2018-12-04] MEDS: DEXTROSE 5%-0.45% NACL 1,000 ML IV SCH ×4 (07:40→23:57)
--- NOTE | 2018-12-04 07:43 | PAC ---
Date/Time of Note Date/Time of Note DATE: 12/04/18 TIME: 07:43 Post-Anesthesia Notes Post-Anesthesia Note Last documented vital signs Vital Signs Date Temp Pulse Resp B/P (MAP) Pulse Ox O2 O2 Flow FiO2 Time Delivery Rate 12/04/18 98.0 63 18 95/54 (68) 97 Room Air 07:34 12/03/18 2.0 16:57 Activity: WNL Respiratory function: WNL Cardiovascular function: WNL Mental status: Baseline Pain reasonably controlled: Yes Hydration appropriate: Yes Nausea/Vomiting absent: Yes PHILIPPE LEWIS MD Dec 04, 2018 07:43
[2018-12-04] MEDS: FAMOTIDINE 20 MG INJ IV SCH ×2 (10:43→20:29)
[2018-12-04 14:55] VITALS: BP 127/68; PULSE 86; RESP 18
[2018-12-04 19:38] VITALS: BP 101/64; PULSE 76; RESP 18
--- NOTE | 2018-12-04 20:54 | GILP ---
DATE OF PROCEDURE: NAME OF PROCEDURE: ERCP, sphincterotomy, removal of the sludge from the common bile duct and placeme nt of a CBD stent and also placement of a pancreatic duct stent. PREOPERATIVE DIAGNOSES: The patient seems to be presenting with a gallstone pancreatitis with a very high liver enzymes, very high serum lipase. Impacted ampullary stone is a possibility. Procedure at this time is performed to remove the stone. POSTOPERATIVE DIAGNOSES: Minimal dilatation of the common bile duct. There is sludge noted in the c ommon bile duct. This was removed. There also seems to be of small stricture near the ampulla of th e distal common bile duct. Sphincterotomy was performed. A CBD stent was placed and also a pancreatic duct stent also was place d to prevent worsening of the pancreatitis. DESCRIPTION OF PROCEDURE: After the informed written consent was obtained, the patient was intubated by anesthesiologist. While the patient was in prone position, Olympus video side-viewing duodenosco pe was inserted into the oropharynx, then into the esophagus, subsequently into the stomach and duode num. Ampulla was located in normal location with normal morphology. Cannulation was performed by us ing the Dreamtome and guidewire. Initially, the common bile duct not cannulated. However, pancreati c duct was cannulated. The pancreatic stent with the guide was left in the pancreatic duct and with the help of a Dreamtome and guidewire technique, the common bile duct also was cannulated and common bile duct showed minimal dilatation. Sphincterotomy was performed, about 7 mm cut was made by using the cutting wire of the Dreamtome. By using the stone extraction balloon, balloon sweeping was perfo rmed, which yielded removal of some sludge and small particles and the stones and at this time, there was no major filling defects noted, a 10 x 7 [place] type of endobiliary prosthesis was inserted i nto the common bile duct across the ampulla into the duodenum. Also, I felt that to prevent further worsening of the pancreatitis ____ pancreatic duct stones. Hence, a 5-[place] 7 cm long single pigtai l pancreatic duct stent was placed into the pancreatic duct across the ampulla into the duodenum. Ph otographs were obtained and the procedure was terminated. PLAN: Recommend to follow the patient closely and remove the stent after the cholecystectomy. Dictated By: DILCIA COLEY/MELISSA Conf#: [id number] [facility]#: [id number]
[2018-12-05 01:46] VITALS: BP 106/68; PULSE 74; RESP 18
[2018-12-05 07:27] VITALS: BP 106/71; PULSE 66; RESP 18
[2018-12-05] MEDS: FAMOTIDINE 20 MG INJ IV SCH ×2 (08:20→21:36)
[2018-12-05] MEDS ORDERED: POTASSIUM CHLORIDE (SR) 20 MEQ TAB PO STA (08:57)
--- NOTE | 2018-12-05 09:03 | PN ---
Date/Time of Note Date/Time of Note DATE: 12/05/18 TIME: 08:58 Assessment/Plan VTE Prophylaxis Risk score (from Ns)>0 risk: 1 SCD applied (from Ns): Yes Pharmacological prophylaxis: NA/contraindicated Pharm contraindication: low risk/ambulating Lines/Catheters IV [facility]from [facility]): Peripheral IV Urinary Cath still in place: No Assessment/Plan Hospital Course SUBJECTIVE: Denies any nausea /vomiting or abdominal pain. OBJECTIVE: Physical Exam General: Obese, 38 year-old female lying in bed in no apparent distress. HEENT: Normocephalic, atraumatic. Eyes: Anicteric sclerae, conjunctivae clear. ENT: Nasal septum midline, oral mucosa moist. Neck supple, no JVD noticed. Respiratory: Bilaterally clear breath sounds. No use of accessory muscles of respiration. No adventitious breath sounds. Cardiovascular: S1, S2 heard. No murmurs or gallops. Abdomen: Soft and nondistended. Non-tender. Bowel sounds positive in all 4 quadrants. Genitourinary: Deferred. Extremities: No cyanosis, no clubbing, no edema. Peripheral pulses palpable. Neurologic: Cranial nerves II through XII grossly intact. The patient is awake, alert, and oriented. Skin: Normal skin turgor. No skin rashes. Labs & Vitals per chart ASSESSMENT & PLAN 38-year-old female with past medical history of gallstones who came to the emergency room with chief complaint of abdominal pain with evidence of underlying cholelithiasis and moderate dilation of the common bile duct concerning for choledocholithiasis. The patient also had underlying transaminitis without hyperbilirubinemia and pancreatitis. The patient was admitted to inpatient setting for further treatment and evaluation. 1. Symptomatic cholelithiasis. -Continue pain control. -MRCP negative for choledocholithiasis. -Status post ERCP on 12/03/2018 that showed stricture of distal CBD and sludge in the CBD; S/P balloon sweep of CBD with placement of CBD and pancreatic duct stents. -General surgery consult was called on 12/03/2017, but the surgeon has not seen the patient yet. 2. Transaminitis without hyperbilirubinemia. -Most probably secondary to #1. -Management as per #1. 3. Pancreatitis. -Most probably gallstone pancreatitis. -Trend lipase levels. -Continue aggressive hydration. -Start clear liquids. 4. Obesity. -BMI more than 31 kg/m square. -Will advise weight reduction. 5. Breast-feeding status. -Continue pumping. 6. Fluids, electrolytes, and nutrition. -Continue IV fluids. -Start clear liquids. 7 DVT prophylaxis -Bilateral SCDs. 8. Plan. -Continue pain control. -Continue IV fluids. -S/P ERCP on 12/03/2018. -Await surgical evaluation. -Start clear liquids. The patient was seen in collaboration with Dr. Patino. Result Diagram: 12/05/18 0436 12/05/18 0436 Results 24hrs Laboratory Tests Test 12/05/18 04:36 White Blood Count 9.0 Red Blood Count 4.28 Hemoglobin 12.2 Hematocrit 36.6 L Mean Corpuscular Volume 85.5 Mean Corpuscular Hemoglobin 28.5 L Mean Corpuscular Hemoglobin Concent 33.3 Red Cell Distribution Width 12.4 Platelet Count 196 Mean Platelet Volume 10.3 Immature Granulocytes % 0.200 Neutrophils % 72.9 Lymphocytes % 14.4 L Monocytes % 8.2 Eosinophils % 4.0 Basophils % 0.3 Nucleated Red Blood Cells % 0.0 Immature Granulocytes # 0.020 Neutrophils # 6.6 Lymphocytes # 1.3 Monocytes # 0.7 Eosinophils # 0.4 Basophils # 0.0 Nucleated Red Blood Cells # 0.0 Sodium Level 138 Potassium Level 3.3 L Chloride Level 101 Carbon Dioxide Level 31 Anion Gap 6 Blood Urea Nitrogen 7 Creatinine 0.57 Est Glomerular Filtrat Rate mL/min > 60 Glucose Level 103 Calcium Level 7.9 L Phosphorus Level 2.7 Magnesium Level 2.1 Total Bilirubin 0.7 Direct Bilirubin 0.00 Indirect Bilirubin 0.7 Aspartate Amino Transf (AST/SGOT) 29 Alanine Aminotransferase (ALT/SGPT) 143 H Alkaline Phosphatase 118 Total Protein 6.1 Albumin 3.1 L Globulin 3.00 Albumin/Globulin Ratio 1.03 Amylase Level 242 #H Lipase 795 H Exam/Review of Systems Exam Vitals Vital Signs Date Temp Pulse Resp B/P (MAP) Pulse Ox O2 O2 Flow FiO2 Time Delivery Rate 12/05/18 98.9 66 18 106/71 97 Room Air 07:27 (83) 12/03/18 2.0 16:57 Intake and Output 12/04/18 12/04/18 12/05/18 1414:59 22:59 06:59 IntakeIntake Total 600 ml OutputOutput Total 400 ml 400 ml BalanceBalance -400 ml 200 ml Results Results 24hrs Laboratory Tests Test 12/05/18 04:36 White Blood Count 9.0 Red Blood Count 4.28 Hemoglobin 12.2 Hematocrit 36.6 L Mean Corpuscular Volume 85.5 Mean Corpuscular Hemoglobin 28.5 L Mean Corpuscular Hemoglobin Concent 33.3 Red Cell Distribution Width 12.4 Platelet Count 196 Mean Platelet Volume 10.3 Immature Granulocytes % 0.200 Neutrophils % 72.9 Lymphocytes % 14.4 L Monocytes % 8.2 Eosinophils % 4.0 Basophils % 0.3 Nucleated Red Blood Cells % 0.0 Immature Granulocytes # 0.020 Neutrophils # 6.6 Lymphocytes # 1.3 Monocytes # 0.7 Eosinophils # 0.4 Basophils # 0.0 Nucleated Red Blood Cells # 0.0 Sodium Level 138 Potassium Level 3.3 L Chloride Level 101 Carbon Dioxide Level 31 Anion Gap 6 Blood Urea Nitrogen 7 Creatinine 0.57 Est Glomerular Filtrat Rate mL/min > 60 Glucose Level 103 Calcium Level 7.9 L Phosphorus Level 2.7 Magnesium Level 2.1 Total Bilirubin 0.7 Direct Bilirubin 0.00 Indirect Bilirubin 0.7 Aspartate Amino Transf (AST/SGOT) 29 Alanine Aminotransferase (ALT/SGPT) 143 H Alkaline Phosphatase 118 Total Protein 6.1 Albumin 3.1 L Globulin 3.00 Albumin/Globulin Ratio 1.03 Amylase Level 242 #H Lipase 795 H Medications Medication Current Medications Dextrose/Sodium Chloride 1,000 ml @ 120 mls/hr Q8H20M IV Last administered on 12/04/18at 23:57; Admin Dose 120 MLS/HR; Start 12/01/18 at 20:50 IV Flush (NS 3 ml) 3 ml PER PROTOCOL IV ; Start 12/01/18 at 21:00 Ondansetron HCl (Zofran Inj) 4 mg Q6H PRN IV NAUSEA/VOMITING Last administered on 12/02/18at 13:34; Admin Dose 4 MG; Start 12/01/18 at 21:00 Morphine Sulfate (morphine) 2 mg Q4H PRN IV .PAIN 7-10 Last administered on 12/03/18at 09:08; Admin Dose 2 MG; Start 12/01/18 at 21:00 Famotidine (Pepcid Iv) 20 mg Q12 IV Last administered on 12/05/18at 08:20; Admin Dose 20 MG; Start 12/01/18 at 21:00 SE RENE NP Dec 05, 2018 09:03
[2018-12-05] MEDS: DEXTROSE 5%-0.45% NACL 1,000 ML IV SCH ×2 (09:42→19:24)
[2018-12-05 15:49] VITALS: BP 119/61; PULSE 52; RESP 20
[2018-12-05 19:25] VITALS: BP 129/67; PULSE 50; RESP 18
[2018-12-06] VITALS: BP 113/72; PULSE 58; RESP 18
[2018-12-06] MEDS: morphine 2 MG INJ IV PRN (00:07)
[2018-12-06] MEDS: DEXTROSE 5%-0.45% NACL 1,000 ML IV SCH (03:06)
[2018-12-06] MEDS ORDERED: POTASSIUM CHLORIDE (SR) 20 MEQ TAB PO STA (07:03)
--- NOTE | 2018-12-06 07:10 | PDOCDIS ---
Discharge Instructions CONDITION [id number] Patient Condition: [id number] Stable HOME CARE INSTRUCTIONS: [id number] Diet Instructions: [id number] Low Fat /Cholesterol FOLLOW UP/APPOINTMENTS Follow-up Plan Darwin Cantrell MD Specialty: Gastroenterology Office Address [id number] [place] [phone] Office OTHER ORDERS: Other Orders: 1. Take a low-cholesterol diet as tolerated 2. Resume activities as tolerated. 3. Follow-up with your primary care physician at the earliest. Have your primary care physician arrange for outpatient surgical follow-up for elective removal of the gallbladder. 4. Please follow-up with gastroenterology (Dr. Cantrell) in 1 month for addressing the stents placed in your common bile duct. Please call for appointment. 5. Please go to the nearest emergency room if you have any significant abdominal pain, persistent nausea/vomiting, development of jaundice, persistent fevers, or any other unusual signs/symptoms. 1. Dara ginette dieta baja en colesterol segn lo tolere 2. Reanudar las actividades segn lo tolerado. 3. Abhijeet el seguimiento con zhou mdico de atencin primaria lo antes posible. Pdale a zhou mdico de atencin primaria que se encargue del seguimiento quirrgico ambulatorio para la extraccin electiva de la vescula biliar. 4. Por favor, abhijeet un seguimiento con gastroenterologa (Dr. Cantrell) en 1 mes para tratar los stents colocados en zhou conducto biliar comn. Por favor llame para ginette sofia. 5. Vaya a la alberto de emergencias ms cercana si tiene dolor abdominal significativo, nuseas / vmitos persistentes, desarrollo de ictericia, fiebre persistente o cualquier otro sntoma o sntoma inusual. SE RENE NP Dec 06, 2018 07:10
[2018-12-06 07:31] VITALS: BP 117/74; PULSE 51; RESP 18
[2018-12-06] MEDS: FAMOTIDINE 20 MG INJ IV SCH (08:05)
--- NOTE | 2018-12-06 09:01 | DS ---
Date/Time of Note Date/Time of Note DATE: 12/06/18 TIME: 09:00 Discharge Summary Admission/Discharge Info Admit Date/Time Dec 01, 2018 at 18:02 Discharge Date/Time Discharge Diagnosis 1. Symptomatic cholelithiasis. 2. 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 S/P balloon sweep of CBD with placement of CBD and pancreatic duct stents. 3. Transaminitis without hyperbilirubinemia. 4. Gallstone pancreatitis. 5. Obesity. BMI more than 31 kg/m square. 6. Breast-feeding status. Patient Condition: Stable Consults 1. Darwin Cantrell MD, Gastroenterology. Procedures G.I. LAB PROCEDURE DATE OF PROCEDURE: 12/03/2018 NAME OF PROCEDURE: ERCP, sphincterotomy, removal of the sludge from the common bile duct and placement of a CBD stent and also placement of a pancreatic duct stent. PREOPERATIVE DIAGNOSES: The patient seems to be presenting with a gallstone pancreatitis with a very high liver enzymes, very high serum lipase. Impacted ampullary stone is a possibility. Procedure at this time is performed to remove the stone. POSTOPERATIVE DIAGNOSES: Minimal dilatation of the common bile duct. There is sludge noted in the common bile duct. This was removed. There also seems to be of small stricture near the ampulla of the distal common bile duct. Sphincterotomy was performed. A CBD stent was placed and also a pancreatic duct stent also was placed to prevent worsening of the pancreatitis. DESCRIPTION OF PROCEDURE: After the informed written consent was obtained, the patient was intubated by anesthesiologist. While the patient was in prone position, Olympus video side-viewing duodenoscope was inserted into the oropharynx, then into the esophagus, subsequently into the stomach and duodenum. Ampulla was located in normal location with normal morphology. Cannulation was performed by using the Dreamtome and guidewire. Initially, the common bile duct not cannulated. However, pancreatic duct was cannulated. The pancreatic stent with the guide was left in the pancreatic duct and with the help of a Dreamtome and guidewire technique, the common bile duct also was cannulated and common bile duct showed minimal dilatation. Sphincterotomy was performed, about 7 mm cut was made by using the cutting wire of the Dreamtome. By using the stone extraction balloon, balloon sweeping was performed, which yielded removal of some sludge and small particles and the stones and at this time, there was no major filling defects noted, a 10 x 7 [place] type of endobiliary prosthesis was inserted into the common bile duct across the ampulla into the duodenum. Also, I felt that to prevent further worsening of the pancreatitis ____ pancreatic duct stones. Hence, a 5-Iceland[place] 7 cm long single pigtail pancreatic duct stent was placed into the pancreatic duct across the ampulla into the duodenum. Photographs were obtained and the procedure was terminated. PLAN: Recommend to follow the patient closely and remove the stent after the cholecystectomy. MRCP IMPRESSION: 1. No intrahepatic or extrahepatic biliary ductal dilation. Normal MRCP with no evidence of choledocholithiasis. 2. Acute pancreatitis predominantly involving pancreatic head. There is no evidence of main pancreatic ductal dilation or suspicious mass. Correlation with pancreatic enzymes is recommended. 3. Stone filled moderately distended gallbladder with no evidence of cholecystitis. Hx of Present Illness This is a 38-year-old female with past medical history of gallstones who came to the emergency room with chief complaint of abdominal pain with evidence of underlying cholelithiasis and moderate dilation of the common bile duct concerning for choledocholithiasis. The patient also had underlying transaminitis without hyperbilirubinemia and pancreatitis. The patient was admitted to inpatient setting for further treatment and evaluation. Hospital Course The patient was kept n.p.o. She was provided with adequate pain control. The patient was started on aggressive IV hydration. The patient had evidence of underlying gallstone pancreatitis. Gastroenterology consult was obtained. The patient underwent an MRCP that was negative for any choledocholithiasis. The patient underwent an ERCP on 12/03/2018 that showed stricture of the distal common bile duct sludge in the common bile duct. The patient underwent balloon sweep of the CBD with placement of a CBD and pancreatic duct stents. General surgery consult was obtained on 12/03/2017 and the surgeon accepted the patient. Nevertheless, the patient was not seen by the surgeon in a timely fashion. Meanwhile, once the patient's lipase levels were trending down, she was started on a clear liquid diet and the patient's diet was advanced as tolerated to a regular consistency diet without any significant gastrointestinal symptoms. The patient did not have any febrile illness, significant leukocytosis, or any other warning signs that necessitated the use of antibiotics. The patient is a relatively healthy young individual with no other comorbidities other than obesity. The patient was also currently breast-feeding. The patient was instructed to pump breast milk. The patient is able to tolerate a regular consistency diet. The patient is stable to be discharged, provided the patient will follow up with outpatient surgery and outpatient gastroenterology. Discharge Instructions 1. Take a low-cholesterol diet as tolerated 2. Resume activities as tolerated. 3. Follow-up with your primary care physician at the earliest. Have your primary care physician arrange for outpatient surgical follow-up for elective removal of the gallbladder. 4. Please follow-up with gastroenterology (Dr. Cantrell) in 1 month for addressing the stents placed in your common bile duct. Please call for appointment. 5. Please go to the nearest emergency room if you have any significant abdominal pain, persistent nausea/vomiting, development of jaundice, persistent fevers, or any other unusual signs/symptoms. Discharge instructions were given to the patient with a quality control lab technician. The patient verbalized understanding of her discharge instructions. At this time I would like to thank Dr. Cantrell for seeing the patient, doing the necessary procedures, and providing clinical recommendations. The patient was seen in collaboration with Dr. Patino. Home Meds Discontinued Reported Medications Multivit/Min/Fol Ac/Iron/Pren* ( S*) 1 Tab Tab, 1 TAB PO DAILY, TAB 03/28/16 Follow-up Plan Darwin Cantrell MD Specialty: Gastroenterology Office Address [address] [place] [address] Office Primary Care Provider Care Physician No Primary Time spent on discharge: > 30 minutes Pending Labs Laboratory Tests Test 12/06/18 04:55 12/06/18 04:56 White Blood Count 6.8 10^3/ul (4.8-10.8) Red Blood Count 4.24 10^6/ul (4.20-5.40) Hemoglobin 12.0 g/dl (12.0-16.0) Hematocrit 36.6 % (37.0-47.0) Mean Corpuscular Volume 86.3 fl (82.0-101.0) Mean Corpuscular Hemoglobin 28.3 pg (29.0-33.0) Mean Corpuscular 32.8 g/dl (32.0-37.0) Hemoglobin Concent Red Cell Distribution Width 12.2 % (11.5-14.5) Platelet Count 215 10^3/UL (140-415) Mean Platelet Volume 10.1 fl (7.4-10.4) Immature Granulocytes % 0.300 % (0.001-0.429) Neutrophils % 63.0 % (39.0-77.0) Lymphocytes % 23.3 % (15.0-51.0) Monocytes % 7.8 % (0.0-11.0) Eosinophils % 5.3 % (0.0-7.0) Basophils % 0.3 % (0.0-2.0) Nucleated Red Blood Cells % 0.0 /100WBC (0.0-0.0) Immature Granulocytes # 0.020 10^3/ul (0.0-0.031) Neutrophils # 4.3 10^3/ul (1.6-7.5) Lymphocytes # 1.6 10^3/ul (0.8-2.9) Monocytes # 0.5 10^3/ul (0.3-0.9) Eosinophils # 0.4 10^3/ul (0.0-0.5) Basophils # 0.0 10^3/ul (0.0-0.1) Nucleated Red Blood Cells # 0.0 10^3/ul (0.0-0.0) Phosphorus Level 3.5 mg/dl (2.5-4.9) Magnesium Level 2.1 mg/dl (1.7-2.5) Amylase Level 174 U/L (11-123) Lipase 903 U/L (23-300) Sodium Level 139 mmol/L (135-144) Potassium Level 3.2 mmol/L (3.5-5.1) Chloride Level 102 mmol/L (97-110) Carbon Dioxide Level 30 mmol/L (21-31) Anion Gap 7 (5-13) Blood Urea Nitrogen 5 mg/dl (7-20) Creatinine 0.56 mg/dl (0.44-1.00) Est Glomerular Filtrat > 60 mL/min (>60) Rate mL/min Glucose Level 100 mg/dl (70-220) Calcium Level 8.3 mg/dl (8.4-10.2) Total Bilirubin 0.5 mg/dl (0.2-1.3) Direct Bilirubin 0.00 mg/dl (0.00-0.20) Indirect Bilirubin 0.5 mg/dl (0-1.1) Aspartate Amino 21 IU/L (15-46) Transf (AST/SGOT) Alanine 107 IU/L (13-69) Aminotransferase (ALT/SGPT) Alkaline Phosphatase 108 IU/L (42-121) Total Protein 6.0 g/dl (6.1-8.1) Albumin 3.0 g/dl (3.3-4.9) Globulin 3.00 g/dl (1.3-3.2) Albumin/Globulin Ratio 1.00 SE RENE NP Dec 06, 2018 09:01
== END 2018-12-06 12:00 | disposition home or self-care (01) | DRG 439 ==
LOC: E/R 15:50 → MS1 18:02
PROVIDERS: ADMIT Internal Medicine; ATTEND Internal Medicine
PROC: 0FC98ZZ Extirpation of Matter from Common Bile Duct, Via Natural or Artificial Opening Endoscopic (ICD-10-PCS; principal; 2018-12-04)
PROC: 0F7D8DZ Dilation of Pancreatic Duct with Intraluminal Device, Via Natural or Artificial Opening Endoscopic (ICD-10-PCS; 2018-12-04)
PROC: 0F798DZ Dilation of Common Bile Duct with Intraluminal Device, Via Natural or Artificial Opening Endoscopic (ICD-10-PCS; 2018-12-04)
DX: K85.10 Biliary acute pancreatitis without necrosis or infection (principal); K80.71 Calculus of gallbladder and bile duct without cholecystitis with obstruction; E66.9 Obesity, unspecified; Z68.31 Body mass index [BMI] 31.0-31.9, adult
CPT/HCPCS: 36415; 74181; 74330; 76705; 80053; 80061; 81001; 81025; 82150; 83036; 83690; 83735; 84100; 85025; 85610; 96374; 96375; 96376; C2617; J1170; J2270; J2405; J2710; J2765; J3010; J3480; J7030; J7042; Q9967

== ENCOUNTER 2018-12-11 03:52 | Emergency (ER) | payer MEDICAID ==
[~2018-12-11] VITALS: Ht 160 cm; Wt 80.5 kg
[2018-12-11 04:06] VITALS: Ht 160 cm; Wt 80.5 kg
[2018-12-11] MEDS ORDERED: ONDANSETRON 4 MG INJ IV STA (04:49)
[2018-12-11] MEDS ORDERED: KETOROLAC 30 MG INJ IV STA (04:49)
[2018-12-11] MEDS ORDERED: IBUP-1542 PO ×2 (05:41→06:30)
[2018-12-11] MEDS ORDERED: ONDA4TAB14 PO ×2 (05:42→06:30)
--- NOTE | 2018-12-11 05:52 | ERD ---
ER Documentation Chief Complaint Chief Complaint RUQ pain with nause and vomit x 1 day HPI Patient is a 38-year-old female with a past medical history of gallstones who presents ER for concerns of right upper quadrant pain along with nausea and vomiting x1 day. Patient describes the pain to be sharp and stabbing. Patient denies any fevers or chills. Patient reports vomiting twice, nonbloody, nonbilious. Patient denies any chest pain, shortness of breath, dysuria, frequency, urgency, hematuria or diarrhea. Patient states she had cheese to eat for dinner and that may have triggered her pain. Patient denies any alcohol use . Of note, patient was recently admitted for symptomatic cholelithiasis on 12/01/18. During admission, patient underwent ERCP, sphincterectomy, removal of sludge from the common bile duct and placement of CBD stent and pancreatitic duct stent. ROS All systems reviewed and are negative except as per history of present illness. Medications Home Meds Active Scripts Ondansetron (Ondansetron Odt) 4 Mg Tab.rapdis, 4 MG PO Q6H PRN for NAUSEA AND/OR VOMITING, #10 TAB Prov:YOU ALVARES PA-C 12/11/18 Ibuprofen* (Motrin*) 600 Mg Tab, 600 MG PO Q6, #30 TAB Prov:YOU ALVARES PA-C 12/11/18 Allergies Allergies: Coded Allergies: No Known Allergy (Unverified , 12/01/18) PMhx/Soc History of Surgery: Yes (GALLSTONE REMOVAL 12/06/18 ) Anesthesia Reaction: No Hx 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 Disorder: No Hx Respiratory Disorders: No Hx Cardiac Disorders: No Hx Psychiatric Problems: No Hx Miscellaneous Medical Probl: No Hx Alcohol Use: No Hx Substance Use: No Hx Tobacco Use: No Smoking Status: Never smoker FmHx Family History: No diabetes Physical Exam Vitals Vital Signs Date Temp Pulse Resp B/P (MAP) Pulse Ox O2 O2 Flow FiO2 Time Delivery Rate 12/11/18 96.0 60 22 190/97 100 04:06 (128) Physical Exam GENERAL: Well-developed, well-nourished female. Appears uncomfortable secondary to pain. HEAD: Normocephalic, atraumatic. EYES: Pupils are equally reactive bilaterally. EOMs grossly intact. No conjunctival erythema. ENT: Moist mucous membranes. No uvula deviation. No kissing tonsils. NECK: Supple. No meningismus. Normal range of motion of the neck. LUNG: Clear to auscultation bilaterally. No rhonchi, wheezing, rales or coarse breath sounds. HEART: Regular rate and rhythm. No murmurs, rubs or gallops. ABDOMEN: Soft nondistended. Tender to palpation in the right upper quadrant.. Positive bowel sounds in all four quadrants. No rebound tenderness, no guarding. (-) McBurney's point tenderness. No CVA tenderness. EXTREMITIES: Equal pulses bilaterally. No peripheral clubbing, cyanosis or edema. No unilateral leg swelling. NEUROLOGIC: Alert and oriented. Moving all four extremities without any difficulty. Normal speech. Steady gait. SKIN: Normal color. Warm and dry. No rashes or lesions. Result Diagram: 12/11/18 0502 Results 24 hrs Laboratory Tests Test 12/11/18 05:02 12/11/18 05:15 White Blood Count 12.6 10^3/ul Red Blood Count 5.15 10^6/ul Hemoglobin 14.3 g/dl Hematocrit 44.4 % Mean Corpuscular Volume 86.2 fl Mean Corpuscular Hemoglobin 27.8 pg Mean Corpuscular Hemoglobin Concent 32.2 g/dl Red Cell Distribution Width 12.0 % Platelet Count 385 10^3/UL Mean Platelet Volume 9.7 fl Immature Granulocytes % 0.200 % Neutrophils % 83.5 % Lymphocytes % 9.6 % Monocytes % 4.8 % Eosinophils % 1.6 % Basophils % 0.3 % Nucleated Red Blood Cells % 0.0 /100WBC Immature Granulocytes # 0.030 10^3/ul Neutrophils # 10.5 10^3/ul Lymphocytes # 1.2 10^3/ul Monocytes # 0.6 10^3/ul Eosinophils # 0.2 10^3/ul Basophils # 0.0 10^3/ul Nucleated Red Blood Cells # 0.0 10^3/ul POC Beta HCG, Qualitative NEGATIVE Current Medications Medications Dose Sig/Megan Start Time Status Last (Trade) Ordered Route PRN Stop Time Admin Dose Reason Admin Ondansetron 4 mg ONCE STAT 12/11/18 DC 12/11/18 HCl (Zofran IV 04:49 05:07 Inj) 12/11/18 04:51 Ketorolac 30 mg ONCE STAT 12/11/18 DC 12/11/18 Tromethamine IV 04:49 05:07 (Toradol) 12/11/18 04:51 Procedures/MDM ED COURSE: The patient was stable throughout ED course. I kept the patient and/or family informed of laboratory and diagnostic imaging results throughout the ED course. MEDICATIONS GIVEN: Zofran, Toradol Patient tolerated medication well with no adverse reactions. Patient reported improvement in pain. MEDICAL DECISION MAKING: This is a 38-year-old female with past medical history of gallstones, presents ER for concerns of right upper quadrant pain along with nausea and vomiting x1 day.. Vital signs were reviewed. Patient was afebrile. Patient was hypoxic. Of note, patient was recently admitted for symptomatic cholelithiasis on 12/01/18. During admission, patient underwent ERCP, sphincterectomy, removal of sludge from the common bile duct and placement of CBD stent and pancreatitic duct stent. IV line established. Zofran and Toradol IV given. Blood work was obtained and pending at this time. Gallbladder US order and pending. Case will be signed out to Raquel Salcedo. Departure Diagnosis: Primary Impression: Biliary colic Condition: Fair Referrals: [facility] YOU HAVE RECEIVED A MEDICAL SCREENING EXAM AND THE RESULTS INDICATE THAT YOU DO NOT HAVE A CONDITION THAT REQUIRES URGENT TREATMENT IN THE EMERGENCY DEPARTMENT. FURTHER EVALUATION AND TREATMENT OF YOUR CONDITION CAN WAIT UNTIL YOU ARE SEEN IN YOUR DOCTORS OFFICE WITHIN THE NEXT 1-2 DAYS. IT IS YOUR RESPONSIBILITY TO MAKE AN APPOINTMENT FOR FOLOW-UP CARE. IF YOU HAVE A PRIMARY DOCTOR --you should call your primary doctor and schedule an appointment IF YOU DO NOT HAVE A PRIMARY DOCTOR YOU CAN CALL OUR PHYSICIAN REFERRAL HOTLINE AT IF YOU CAN NOT AFFORD TO SEE A PHYSICIAN YOU CAN CHOSE FROM THE FOLLOWING [facility] [address]. [facility] [address] [facility]. [facility] [address] [facility] [address] [facility] [address] [facility]. [facility]. [address] [facility]. [facility] YOU HAVE RECEIVED A MEDICAL SCREENING EXAM AND THE RESULTS INDICATE THAT YOU DO NOT HAVE A CONDITION THAT REQUIRES URGENT TREATMENT IN THE EMERGENCY DEPARTMENT. FURTHER EVALUATION AND TREATMENT OF YOUR CONDITION CAN WAIT UNTIL YOU ARE SEEN IN YOUR DOCTORS OFFICE WITHIN THE NEXT 1-2 DAYS. IT IS YOUR RESPONSIBILITY TO MAKE AN APPOINTMENT FOR FOLOW-UP CARE. IF YOU HAVE A PRIMARY DOCTOR --you should call your primary doctor and schedule and appointment IF YOU DO NOT HAVE A PRIMARY DOCTOR YOU CAN CALL OUR PHYSICIAN REFERRAL HOTLINE AT . IF YOU CAN NOT AFFORD TO SEE A PHYSICIAN YOU CAN CHOSE FROM THE FOLLOWING [facility] INSTITUTIONS: [facility] [address] [place] [address] [facility] [address] [place], [place] [id number] [place] [address] [address] [place] [address] [facility] Additional Instructions: Llame al doctor MACAROL y black ginette CHRISTOPHER PARA DENTRO DE 1-2 CEDILLO.Dgale a la secretaria que nosotros le instruimos hacer esta christopher.Avise o llame si zhou condicin se empeora antes de la christopher. Regresa aqui si peor o no mejor. YOU ALVARES PA-C Dec 11, 2018 05:52
[2018-12-11] MEDS ORDERED: FAMO-96 PO (06:28)
[2018-12-11] MEDS ORDERED: CIPR500T4 PO (06:28)
[2018-12-11 06:59] VITALS: RESP 18
[2018-12-11 07:01] VITALS: BP 111/69; PULSE 60
== END 2018-12-11 06:58 | disposition home or self-care (01) ==
LOC: FTE 03:52
DX: K80.50 Calculus of bile duct without cholangitis or cholecystitis without obstruction (principal)
CPT/HCPCS: 36415; 76705; 80053; 81001; 81025; 83690; 85025; 96374; 96375; J1885; J2405; Z7502

== ENCOUNTER 2019-01-19 00:48 | Inpatient (IN) | payer MEDICAID ==
[~2019-01-19] VITALS: Ht 165.1 cm; Wt 77.6 kg
[2019-01-19] VITALS (10 sets, daily range): BP systolic 89–103; BP diastolic 51–61; PULSE 48–90; RESP 18–20; Ht 165.1 cm; Wt 77.6 kg
[~2019-01-19 00:48] MED LIST changes: +CIPR500T4 PO; +FAMO-96 PO; +IBUP-1542 PO; +ONDA4TAB14 PO; -PRENAT PO
[2019-01-19] MEDS ORDERED: CEFTRIAXONE 1 GM/50 ML (PMX) 50 ML IVPB STA (01:40)
[2019-01-19] MEDS ORDERED: SODIUM CHLORIDE 0.9% 1L BAG IV* STA (01:40)
[2019-01-19] MEDS ORDERED: KETOROLAC 30 MG INJ IV ONE (02:44)
--- NOTE | 2019-01-19 03:59 | ERD ---
ER Documentation Chief Complaint Chief Complaint RIGHT SIDED FLANK PAIN X TODAY. HPI This is a 38-year-old female presents for evulsion of right upper quadrant pain. She has a history of gallstone pancreatitis, she had an admission about 2 months ago for similar episode. Her pain has recurred today, she endorses nausea and vomiting, also had fever. She denies chest pain or shortness of breath. ROS All systems reviewed and are negative except as per history of present illness. Medications Home Meds Active Scripts Ondansetron (Ondansetron Odt) 4 Mg Tab.rapdis, 4 MG PO Q6H PRN for NAUSEA AND/OR VOMITING, #10 TAB Prov:ALLAN GONZALEZ PA-C 12/11/18 Ibuprofen* (Motrin*) 600 Mg Tab, 600 MG PO Q6, #30 TAB Prov:ALLAN GONZALEZ PA-C 12/11/18 Famotidine* (Pepcid*) 20 Mg Tablet, 20 MG PO BID for 4 Days, #30 TAB Prov:ALLAN GONZALEZ PA-C 12/11/18 Ciprofloxacin Hcl* (Ciprofloxacin Hcl*) 500 Mg Tablet, 500 MG PO BID for 7 Days, TAB Prov:ALLAN GONZALEZ PA-C 12/11/18 Allergies Allergies: Coded Allergies: No Known Allergy (Unverified , 12/01/18) PMhx/Soc History of Surgery: Yes (GALLSTONE REMOVAL 12/06/18 ) Anesthesia Reaction: No Hx 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 Disorder: No Hx Respiratory Disorders: No Hx Cardiac Disorders: No Hx Psychiatric Problems: No Hx Miscellaneous Medical Probl: No Hx Alcohol Use: No Hx Substance Use: No Hx Tobacco Use: No Smoking Status: Never smoker Physical Exam Vitals Vital Signs Date Temp Pulse Resp B/P (MAP) Pulse Ox O2 O2 Flow FiO2 Time Delivery Rate 01/19/19 92 22 94/60 (71) 96 Room Air 03:00 01/19/19 98 21 99/54 (69) 98 Room Air 02:30 01/19/19 100.7 92 30 110/69 97 02:26 (83) 01/19/19 100.7 90 30 115/62 97 00:51 (79) Physical Exam Const: Mild distress, Head: Atraumatic Eyes: Normal Conjunctiva ENT: Normal External Ears, Nose and Mouth. Neck: Full range of motion. No meningismus. Resp: Clear to auscultation bilaterally Cardio: Regular rate and rhythm, no murmurs Abd: Soft, there is right upper quadrant tenderness, no rebound or guarding, non distended. Normal bowel sounds Skin: No petechiae or rashes Back: No midline or flank tenderness Ext: No cyanosis, or edema Neur: Awake and alert Psych: Normal Mood and Affect Result Diagram: 01/19/19 0204 01/19/19 0204 Results 24 hrs Laboratory Tests Test 01/19/19 02:04 01/19/19 02:06 01/19/19 02:18 White Blood Count 10.4 10^3/ul Red Blood Count 3.48 10^6/ul Hemoglobin 9.1 g/dl Hematocrit 28.7 % Mean Corpuscular Volume 82.5 fl Mean Corpuscular Hemoglobin 26.1 pg Mean Corpuscular Hemoglobin Concent 31.7 g/dl Red Cell Distribution Width 14.8 % Platelet Count 455 10^3/UL Mean Platelet Volume 10.2 fl Immature Granulocytes % 0.900 % Neutrophils % % Segmented Neutrophils % (Manual) 37 % Band Neutrophils % (Manual) 20 % Lymphocytes % % Lymphocytes % (Manual) 29 % Monocytes % % Monocytes % (Manual) 13 % Eosinophils % % Eosinophils % (Manual) 1 % Basophils % % Nucleated Red Blood Cells % 0.0 /100WBC Immature Granulocytes # 0.090 10^3/ul Neutrophils # 10^3/ul Neutrophils # (Manual) 4.1 10^3/ul Band Neutrophils # 2.0 10^3/ul Lymphocytes (Manual) 3.0 10^3/ul Lymphocytes # 10^3/ul Monocytes # 10^3/ul Monocytes # (Manual) 1.3 10^3/ul Eosinophils # 10^3/ul Basophils # 10^3/ul Nucleated Red Blood Cells # 10^3/ul Platelet Estimate NORMAL Giant Platelets 3 % Polychromasia 2+ Prothrombin Time 15.5 Sec Prothrombin Time Ratio 1.2 INR International Normalized Ratio 1.22 Activated Partial Thromboplast Time 29.4 Sec Urine Color JUDY Urine Clarity SLIGHTLY CLOUDY Urine pH 5.0 Urine Specific Roby 1.023 Urine Ketones NEGATIVE mg/dL Urine Nitrite NEGATIVE mg/dL Urine Bilirubin NEGATIVE mg/dL Urine Urobilinogen 2+ mg/dL Urine Leukocyte Esterase NEGATIVE Georgie/ul Urine Microscopic RBC 2 /HPF Urine Microscopic WBC 4 /HPF Urine Squamous Epithelial Cells FEW /HPF Urine Bacteria FEW /HPF Urine Mucus FEW /HPF Urine Hemoglobin NEGATIVE mg/dL Urine Glucose NEGATIVE mg/dL Urine Total Protein 1+ mg/dl Sodium Level 135 mmol/L Potassium Level 3.7 mmol/L Chloride Level 99 mmol/L Carbon Dioxide Level 28 mmol/L Anion Gap 8 Blood Urea Nitrogen 15 mg/dl Creatinine 0.87 mg/dl Est Glomerular Filtrat Rate mL/min > 60 mL/min Glucose Level 115 mg/dl Calcium Level 8.0 mg/dl Total Bilirubin 0.6 mg/dl Direct Bilirubin 0.00 mg/dl Indirect Bilirubin 0.6 mg/dl Aspartate Amino Transf (AST/SGOT) 40 IU/L Alanine Aminotransferase (ALT/SGPT) 28 IU/L Alkaline Phosphatase 310 IU/L Troponin I < 0.012 ng/ml Total Protein 7.9 g/dl Albumin 2.9 g/dl Globulin 5.00 g/dl Albumin/Globulin Ratio 0.58 POC Venous Lactate 1.7 mmol/L POC Beta HCG, Qualitative NEGATIVE Current Medications Medications Dose Sig/Megan Start Time Status Last (Trade) Ordered Route PRN Stop Time Admin Dose Reason Admin Sodium 2,250 ml BOLUS OVER 2 01/19/19 DC 01/19/19 Chloride HOURS STAT 01:40 01/19/19 02:16 (NS) IV* 01:42 Ceftriaxone 50 ml @ ONCE STAT 01/19/19 DC 01/19/19 Sodium 100 mls/hr IVPB 01:40 01/19/19 02:19 02:09 Ketorolac 30 mg ONCE ONCE 01/19/19 DC 01/19/19 Tromethamine IV 02:44 01/19/19 02:48 (Toradol) 02:45 Piperacillin 100 ml @ ONCE STAT 01/19/19 Sod/ 200 mls/hr IVPB 04:06 01/19/19 Tazobactam 04:35 Sod Morphine 4 mg ONCE ONCE 01/19/19 DC Sulfate IV 04:11 01/19/19 (morphine) 04:12 Ondansetron 4 mg ONCE ONCE 01/19/19 DC HCl (Zofran IV 04:11 01/19/19 Inj) 04:12 Procedures/MDM 38-year-old female presents for reduction of right upper quadrant pain. My pr imary concern is that she could have acute cholecystitis, she is given subtraction empirically, as well as IV fluids, CT abdomen pelvis and ultrasound are currently pending. EKG: Rate/Rhythm: Normal Sinus Rhythm QRS, ST, T-waves: No changes consistent w/ acute ischemia Impression: No evidence of ischemia or arrhythmia 4:15 AM: CT abdomen pelvis showing a large hepatic abscess, Zosyn was added to patient's regimen, she has remained hemodynamic stable, she will be admitted to telemetry. Accepting Care Team: Current data and ongoing care discussed. Primary: Robe Consulting: None Outstanding Data: none Departure Diagnosis: Primary Impression: Liver abscess Condition: Serious MARIBELL MACE MD Jan 19, 2019 03:59
[2019-01-19] MEDS ORDERED: PIPER-TAZO 3.375 GM IV (PMX) 100 ML IVPB STA (04:06)
[2019-01-19] MEDS ORDERED: morphine 4 MG/ML VIAL IV ONE (04:11)
[2019-01-19] MEDS ORDERED: ONDANSETRON 4 MG INJ IV ONE (04:11)
[2019-01-19] MEDS ORDERED: ONDANSETRON 4 MG INJ IV PRN (05:00)
[2019-01-19] MEDS ORDERED: HYDROCODONE/APAP (5/325) TAB PO PRN (05:00)
--- NOTE | 2019-01-19 05:17 | HP ---
Date/Time of Note Date/Time of Note DATE: 01/19/19 TIME: 04:58 Assessment/Plan VTE Prophylaxis SCD applied (from Nsg): Yes Pharmacological prophylaxis: NA/contraindicated Pharm contraindication: low risk/ambulating Lines/Catheters IV Catheter Type (from Nrsg): Saline Lock Assessment/Plan Assessment/Plan 38 yo woman with recent admission for gallstone pancreatitis with CBD and pancreatic stent placement presents with large hepatic abscesses. #Hepatic abscesses - May be a sequelae of chronic cholecystitis with biliary stent placement. - For now will admit to telemetry, NPO, IV fluids, and IV Zosyn. - Pain control with PO and IV opiates - Dr. Cantrell should be consulted in the morning. - Dr. Stock consulted in the ED. - This may be drainable by IR. Unfortunately will probably need to wait until Sunday. - May require transfer to higher level of care for hepatobiliary surgery evaluation. DVT: SCDs GI: H2 amandeep Result Diagram: 01/19/1920301/19/19203 HPI/ROS Admit Date/Time Admit Date/Time 19 January 2019 Hx of Present Illness Ms. Shalom Zelaya is a 38 yo woman who presents to the ED with acute on chronic abdominal pain and vomiting. She was hospitalized at [facility] December 01- for gallstone pancreatitis. She was seen by Dr. Cantrell who placed a CBD stent and a pancreatic duct stent. She was not seen by a surgeon and did not have a cholecystectomy. Since discharge she reports vague aching RUQ abdominal pain. For the past 2-3 days she's had subjective fevers, stabbing R flank pain, nausea, and yesterday had vomiting x2, nonbloody so she presented to the ED. In the ED she had elevated temperature to 100.7, slightly hypotensive to 94/60. Labs notable for WBC 10.4 [address] alk phos 310. CT shows massive hepatic abscesses, the largest of which is 1.1 x 13.2 x 17.3 cm. ROS She denies recent anorexia, weight loss, headache, dizziness, vision changes, sore throat, dysphagia, dyspnea, cough, chest pain/pressure, palpitations, diarrhea, constipation, dysuria, hematuria. PMH/Family/Social Past Medical History Gallstones Medications Current Medications Sodium Chloride 1,000 ml @ 75 mls/hr [id number] IV ; Start 01/19/19 at 04:55; Status UNV IV Flush (NS 3 ml) 3 ml PER PROTOCOL IV ; Start 01/19/19 at 05:00; Status UNV Ondansetron HCl (Zofran Inj) 4 mg Q6H PRN IV NAUSEA/VOMITING; Start 01/19/19 at 05:00; Status UNV Acetaminophen/ Hydrocodone Bitart ([place] (5/325)) 1 tab Q6H PRN PO .MOD PAIN 4- 6; Start 01/19/19 at 05:00; Status UNV Morphine Sulfate (morphine) 2 mg Q4H PRN IV .SEVERE PAIN 7-10; Start 01/19/19 at 05:00; Status UNV Famotidine (Pepcid Iv) 20 mg Q12 IV ; Start 01/19/19 at 09:00; Status UNV Coded Allergies: No Known Allergy (Unverified , 12/01/18) Past Surgical History None Family History Significant Family History: no pertinent family hx Social History Lives at home with and three young children. Alcohol Use: none Smoking Status: Never smoker Drug Use: none Exam/Review of Systems Vital Signs Vitals Vital Signs Date Temp Pulse Resp B/P (MAP) Pulse Ox O2 O2 Flow FiO2 Time Delivery Rate 01/19/19 98.9 76 21 91/53 (66) 98 Room Air 04:31 Intake and Output 01/18/19 01/18/19 01/19/19 1515:00 23:00 07:00 IntakeIntake Total 2300 ml BalanceBalance 2300 ml Exam Exam Gen: Obese woman awake and alert, no acute distress. Eyes: PERRL, no icterus HEENT: Moist mucous membranes, clear oropharynx Neck: Supple, no lymphadenopathy, no JVD Card: Regular rate and rhythm, no murmur Pulm: Clear to auscultation bilaterally Back: R flank tenderness to palpation Abd: Soft, nondistended. Epigastric and RUQ tenderness to palpation. There is a large, firm, slightly tender mass palpable below the R costal margin just medial of the midclavicular line. No guarding or rebound tenderness. Ext: No cyanosis/clubbing/edema, good peripheral pulses. Skin: warm, dry, well perfused. FAISAL MCFARLAND MD Jan 19, 2019 05:10
[2019-01-19] MEDS ORDERED: SOD CHLORIDE 0.9% 1,000 ML IV ONE ×2 (05:30→18:00)
[2019-01-19] MEDS: SOD CHLORIDE 0.9% 1,000 ML IV SCH ×2 (06:25→17:34)
[2019-01-19] MEDS: FAMOTIDINE 20 MG INJ IV SCH ×2 (08:26→21:35)
--- NOTE | 2019-01-19 10:49 | PN ---
Date/Time of Note Date/Time of Note DATE: 01/19/19 TIME: 10:48 Assessment/Plan VTE Prophylaxis SCD applied (from Nsg): Yes Pharmacological prophylaxis: NA/contraindicated Pharm contraindication: low risk/ambulating Lines/Catheters IV Catheter Type (from Nrsg): Peripheral IV Urinary Cath still in place: No Assessment/Plan Hospital Course SUBJECTIVE: OBJECTIVE: Physical Exam General: 38 year-old female lying in bed in no apparent distress. HEENT: Normocephalic, atraumatic. Eyes: Anicteric sclerae, conjunctivae clear. ENT: Nasal septum midline, oral mucosa is dry. Neck supple, no JVD noticed. Respiratory: Bilaterally clear breath sounds. No use of accessory muscles of respiration. No adventitious breath sounds. Cardiovascular: S1, S2 heard. No murmurs or gallops. Abdomen: Soft and nondistended. Epigastric and RUQ tenderness. Bowel sounds positive in all 4 quadrants. Genitourinary: Deferred. Extremities: No cyanosis, no clubbing, no edema. Peripheral pulses palpable. Neurologic: Cranial nerves II through XII grossly intact. The patient is awake, alert, and oriented. Skin: Normal skin turgor. No skin rashes. Labs & Vitals per chart ASSESSMENT & PLAN 38-year-old female with recent history of gallstone pancreatitis status post CBD stenting and pancreatic duct stent placement on 12/03/2018, who came to the emergency room with chief complaint of abdominal pain and right-sided flank pain with CT showing 17 cm complex collection of gas and fluid expanding the right lobe of the liver consistent with an abscess, who was admitted to inpatient setting for treatment and evaluation. 1. Hepatic abscess. -Continue antibiotics including coverage for anaerobes. -Continue to NPO and IVFs -Gastroenterology and general surgery has been consulted. -Probably needs IR guided drainage. 2. Sepsis with bandemia, tachypnea, ,and tachycardia secondary to underlying liver abscess. Sepsis criteria: Bands>10%,Tachypnea>20, HR>90. Infectious source: Intraabdominal source (liver abscess) -Continue management as per #1. 3. History of gallstone pancreatitis, S/P biliary stent and pancreatic duct stent placement on 12/03/2018. -Gastroenterology consult has been obtained. 4. Fluids, electrolytes, and nutrition. -Continue IV fluids. -N.p.o. 5. DVT prophylaxis -Bilateral SCDs 6. Plan. -Continue antimicrobials. -Continue pain control. -Await surgical and gastroenterology evaluation. The patient was seen in collaboration with Dr. Negro. Result Diagram: 01/19/1920301/19/19 0204 Results 24hrs Laboratory Tests Test 01/19/19 02:04 01/19/19 02:06 01/19/19 02:18 01/19/19 04:29 White Blood Count 10.4 Red Blood Count 3.48 #L Hemoglobin 9.1 #L Hematocrit 28.7 #L Mean Corpuscular 82.5 Volume Mean Corpuscular 26.1 L Hemoglobin Mean Corpuscular 31.7 L Hemoglobin Concent Red Cell 14.8 #H Distribution Width Platelet Count 455 H Mean Platelet 10.2 Volume Immature 0.900 H Granulocytes % Neutrophils % Segmented 37 L Neutrophils % (Manual) Band Neutrophils % 20 H (Manual) Lymphocytes % Lymphocytes % 29 (Manual) Monocytes % Monocytes % 13 H (Manual) Eosinophils % Eosinophils % 1 (Manual) Basophils % Nucleated Red 0.0 Blood Cells % Immature 0.090 H Granulocytes # Neutrophils # Neutrophils # 4.1 (Manual) Band Neutrophils # 2.0 H Lymphocytes 3.0 H (Manual) Lymphocytes # Monocytes # Monocytes # 1.3 H (Manual) Eosinophils # Basophils # Nucleated Red Blood Cells # Platelet Estimate NORMAL Giant Platelets 3 H Polychromasia 2+ Prothrombin Time 15.5 H Prothrombin Time 1.2 Ratio INR International 1.22 Normalized Ratio Activated 29.[address] Time Urine Color JUDY Urine Clarity SLIGHTLY CLOUDY A Urine pH 5.0 Urine Specific 1.023 [place] Urine Ketones NEGATIVE Urine Nitrite NEGATIVE Urine Bilirubin NEGATIVE Urine Urobilinogen 2+ H Urine Leukocyte NEGATIVE Esterase Urine Microscopic 2 RBC Urine Microscopic 4 WBC Urine Squamous FEW Epithelial Cells Urine Bacteria FEW A Urine Mucus FEW A Urine Hemoglobin NEGATIVE Urine Glucose NEGATIVE Urine Total 1+ H Protein Sodium Level 135 Potassium Level 3.7 Chloride Level 99 Carbon Dioxide 28 Level Anion Gap 8 Blood Urea 15 Nitrogen Creatinine 0.87 Est Glomerular > 60 Filtrat Rate mL/min Glucose Level 115 Calcium Level 8.0 L Total Bilirubin 0.6 Direct Bilirubin 0.00 Indirect Bilirubin 0.6 Aspartate Amino 40 Transf (AST/SGOT) Alanine 28 Aminotransferase ( ALT/SGPT) Alkaline 310 H Phosphatase Troponin I < 0.012 Total Protein 7.9 Albumin 2.9 L Globulin 5.00 H Albumin/Globulin 0.58 Ratio POC Venous Lactate 1.7 POC Beta HCG, NEGATIVE Qualitative Lactic Acid Level 0.9 Lipase 93 Test 01/19/19 08:00 Lactic Acid Level 1.2 Exam/Review of Systems Exam Vitals Vital Signs Date Temp Pulse Resp B/P (MAP) Pulse Ox O2 O2 Flow FiO2 Time Delivery Rate 01/19/19 80 92/51 (65) 09:20 01/19/19 98.4 18 98 07:26 01/19/19 Room Air 05:30 Intake and Output 01/18/19 01/18/19 01/19/19 1515:00 23:00 07:00 IntakeIntake Total 2400 ml BalanceBalance 2400 ml Results Results 24hrs Laboratory Tests Test 01/19/19 02:04 01/19/19 02:06 01/19/19 02:18 01/19/19 04:29 White Blood Count 10.4 Red Blood Count 3.48 #L Hemoglobin 9.1 #L Hematocrit 28.7 #L Mean Corpuscular 82.5 Volume Mean Corpuscular 26.1 L Hemoglobin Mean Corpuscular 31.7 L Hemoglobin Concent Red Cell 14.8 #H Distribution Width Platelet Count 455 H Mean Platelet 10.2 Volume Immature 0.900 H Granulocytes % Neutrophils % Segmented 37 L Neutrophils % (Manual) Band Neutrophils % 20 H (Manual) Lymphocytes % Lymphocytes % 29 (Manual) Monocytes % Monocytes % 13 H (Manual) Eosinophils % Eosinophils % 1 (Manual) Basophils % Nucleated Red 0.0 Blood Cells % Immature 0.090 H Granulocytes # Neutrophils # Neutrophils # 4.1 (Manual) Band Neutrophils # 2.0 H Lymphocytes 3.0 H (Manual) Lymphocytes # Monocytes # Monocytes # 1.3 H (Manual) Eosinophils # Basophils # Nucleated Red Blood Cells # Platelet Estimate NORMAL Giant Platelets 3 H Polychromasia 2+ Prothrombin Time 15.5 H Prothrombin Time 1.2 Ratio INR International 1.22 Normalized Ratio Activated 29.[address] Time Urine Color JUDY Urine Clarity SLIGHTLY CLOUDY A Urine pH 5.0 Urine Specific 1.023 [place] Urine Ketones NEGATIVE Urine Nitrite NEGATIVE Urine Bilirubin NEGATIVE Urine Urobilinogen 2+ H Urine Leukocyte NEGATIVE Esterase Urine Microscopic 2 RBC Urine Microscopic 4 WBC Urine Squamous FEW Epithelial Cells Urine Bacteria FEW A Urine Mucus FEW A Urine Hemoglobin NEGATIVE Urine Glucose NEGATIVE Urine Total 1+ H Protein Sodium Level 135 Potassium Level 3.7 Chloride Level 99 Carbon Dioxide 28 Level Anion Gap 8 Blood Urea 15 Nitrogen Creatinine 0.87 Est Glomerular > 60 Filtrat Rate mL/min Glucose Level 115 Calcium Level 8.0 L Total Bilirubin 0.6 Direct Bilirubin 0.00 Indirect Bilirubin 0.6 Aspartate Amino 40 Transf (AST/SGOT) Alanine 28 Aminotransferase ( ALT/SGPT) Alkaline 310 H Phosphatase Troponin I < 0.012 Total Protein 7.9 Albumin 2.9 L Globulin 5.00 H Albumin/Globulin 0.58 Ratio POC Venous Lactate 1.7 POC Beta HCG, NEGATIVE Qualitative Lactic Acid Level 0.9 Lipase 93 Test 01/19/19 08:00 Lactic Acid Level 1.2 Medications Medication Current Medications Sodium Chloride 1,000 ml @ 75 mls/hr [id number] IV Last administered on 01/19/19at 06:25; Admin Dose 75 MLS/HR; Start 01/19/19 at 04:55 IV Flush (NS 3 ml) 3 ml PER PROTOCOL IV ; Start 01/19/19 at 05:00 Ondansetron HCl (Zofran Inj) 4 mg Q6H PRN IV NAUSEA/VOMITING; Start 01/19/19 at 05:00 Acetaminophen/ Hydrocodone Bitart ([place] (5/325)) 1 tab Q6H PRN PO .MOD PAIN 4- 6; Start 01/19/19 at 05:00 Morphine Sulfate (morphine) 2 mg Q4H PRN IV .SEVERE PAIN 7-10; Start 01/19/19 at 05:00 Famotidine (Pepcid Iv) 20 mg Q12 IV Last administered on 01/19/19at 08:26; Admin Dose 20 MG; Start 01/19/19 at 09:00 Piperacillin Sod/ Tazobactam Sod 100 ml @ 200 mls/hr Q6 IVPB ; Start 01/19/19 at 12:00 SE RENE NP Jan 19, 2019 10:49
[2019-01-19] MEDS: PIPER-TAZO 3.375 GM IV (PMX) 100 ML IVPB SCH ×3 (11:22→23:47)
[2019-01-19] MEDS ORDERED: LIDOCAINE 1% (MPF) 5 ML VIAL ONE (15:05)
[2019-01-19] MEDS ORDERED: SOD CHLORIDE 0.9% 100 ML ONE (15:06)
--- NOTE | 2019-01-19 15:08 | CONS ---
Assessment/Plan Assessment/Plan Assessment/Plan (Daily) Hepatic abscess, unclear etiology, possibly related to CBD stent Needs IR drainage IV antibiotics Will defer to GI as per management of stents Will need lap anju. Patient did not see a surgeon last time she was admitted for her choledocholithiasis. However, would not operate on this admission. Needs about 4 to 6 weeks of resolution of hepatic abscess and then outpatient lap anju. Consultation Date/Type/Reason Admit Date/Time 19 January 2019 Date/Time of Note DATE: 01/19/19 TIME: 15:06 Hx of Present Illness The patient is a 38-year-old female status post admission November for choledocholithiasis and gallstone pancreatitis. Patient underwent ERCP with CBD and pancreatic stent. She did not follow-up. According to patient, she understood that she needed surgery for her gallstones but did not know that she had stents placed in her last admission. Patient developed acute onset of right upper quadrant abdominal pain. This was similar to admission 2 months ago. She had nausea as well as emesis. She had fevers. She denies diarrhea or constipation. Patient has been doing well since her admission up until last few days. Due to her return of symptoms, she presented to the ER. 14 point review of systems was performed. Pertinent negatives and positive per HPI. Past Medical History Medical History: gallstones, other (Gallstone pancreatitis) Home Meds Active Scripts Ondansetron (Ondansetron Odt) 4 Mg Tab.rapdis, 4 MG PO Q6H PRN for NAUSEA AND/OR VOMITING, #10 TAB Prov:ALLAN GONZALEZ PA-C 12/11/18 Ibuprofen* (Motrin*) 600 Mg Tab, 600 MG PO Q6, #30 TAB Prov:ALLAN GONZALEZ PA-C 12/11/18 Famotidine* (Pepcid*) 20 Mg Tablet, 20 MG PO BID for 4 Days, #30 TAB Prov:ALLAN GONZALEZ PA-C 12/11/18 Ciprofloxacin Hcl* (Ciprofloxacin Hcl*) 500 Mg Tablet, 500 MG PO BID for 7 Days, TAB Prov:ALLAN GONZALEZ PA-C 12/11/18 Medications Current Medications Sodium Chloride 1,000 ml @ 75 mls/hr [id number] IV Last administered on 01/19/19at 06:25; Admin Dose 75 MLS/HR; Start 01/19/19 at 04:55 IV Flush (NS 3 ml) 3 ml PER PROTOCOL IV ; Start 01/19/19 at 05:00 Ondansetron HCl (Zofran Inj) 4 mg Q6H PRN IV NAUSEA/VOMITING; Start 01/19/19 at 05:00 Acetaminophen/ Hydrocodone Bitart ([place] (5/325)) 1 tab Q6H PRN PO .MOD PAIN 4- 6; Start 01/19/19 at 05:00 Morphine Sulfate (morphine) 2 mg Q4H PRN IV .SEVERE PAIN 7-10; Start 01/19/19 at 05:00 Famotidine (Pepcid Iv) 20 mg Q12 IV Last administered on 01/19/19at 08:26; Admin Dose 20 MG; Start 01/19/19 at 09:00 Piperacillin Sod/ Tazobactam Sod 100 ml @ 200 mls/hr Q6 IVPB Last administered on 01/19/19at 11:22; Admin Dose 200 MLS/HR; Start 01/19/19 at 12:00 Allergies: Coded Allergies: No Known Allergy (Unverified , 12/01/18) Past Surgical History Past Surgical Hx: no surgical history Family History Significant Family History: no pertinent family hx Social History Alcohol Use: none Smoking Status: Never smoker Drug Use: none Exam/Review of Systems Exam Vitals Vital Signs Date Temp Pulse Resp B/P (MAP) Pulse Ox O2 O2 Flow FiO2 Time Delivery Rate 01/19/19 84 12:08 01/19/19 100.1 18 99/61 (74) 97 11:26 01/19/19 Room Air 05:30 Intake and Output 01/18/19 01/18/19 01/19/19 1515:00 23:00 07:00 IntakeIntake Total 2400 ml BalanceBalance 2400 ml Constitutional: alert, oriented, well developed Psych: no complaints Head: normocephalic, atraumatic Eyes: nl conjunctiva ENMT: nl external ears & nose Neck: supple, non-tender Respiratory: clear to auscultation, normal air movement Cardiovascular: regular rate and rhythm Gastrointestinal: soft, other (Some right upper quadrant tenderness, no periton eal findings) Musculoskeletal: nl extremities to inspection Extremities: normal pulses 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, nl mental status Skin: nl turgor, rash or lesions Results Result Diagram: 01/19/19 0204 01/19/19 0204 Results 24hrs Laboratory Tests Test 01/19/19 02:04 01/19/19 02:06 01/19/19 02:18 01/19/19 04:29 White Blood Count 10.4 Red Blood Count 3.48 #L Hemoglobin 9.1 #L Hematocrit 28.7 #L Mean Corpuscular 82.5 Volume Mean Corpuscular 26.1 L Hemoglobin Mean Corpuscular 31.7 L Hemoglobin Concent Red Cell 14.8 #H Distribution Width Platelet Count 455 H Mean Platelet 10.2 Volume Immature 0.900 H Granulocytes % Neutrophils % Segmented 37 L Neutrophils % (Manual) Band Neutrophils % 20 H (Manual) Lymphocytes % Lymphocytes % 29 (Manual) Monocytes % Monocytes % 13 H (Manual) Eosinophils % Eosinophils % 1 (Manual) Basophils % Nucleated Red 0.0 Blood Cells % Immature 0.090 H Granulocytes # Neutrophils # Neutrophils # 4.1 (Manual) Band Neutrophils # 2.0 H Lymphocytes 3.0 H (Manual) Lymphocytes # Monocytes # Monocytes # 1.3 H (Manual) Eosinophils # Basophils # Nucleated Red Blood Cells # Platelet Estimate NORMAL Giant Platelets 3 H Polychromasia 2+ Prothrombin Time 15.5 H Prothrombin Time 1.2 Ratio INR International 1.22 Normalized Ratio Activated 29.[address] Time Urine Color JUDY Urine Clarity SLIGHTLY CLOUDY A Urine pH 5.0 Urine Specific 1.023 [place] Urine Ketones NEGATIVE Urine Nitrite NEGATIVE Urine Bilirubin NEGATIVE Urine Urobilinogen 2+ H Urine Leukocyte NEGATIVE Esterase Urine Microscopic 2 RBC Urine Microscopic 4 WBC Urine Squamous FEW Epithelial Cells Urine Bacteria FEW A Urine Mucus FEW A Urine Hemoglobin NEGATIVE Urine Glucose NEGATIVE Urine Total 1+ H Protein Sodium Level 135 Potassium Level 3.7 Chloride Level 99 Carbon Dioxide 28 Level Anion Gap 8 Blood Urea 15 Nitrogen Creatinine 0.87 Est Glomerular > 60 Filtrat Rate mL/min Glucose Level 115 Calcium Level 8.0 L Total Bilirubin 0.6 Direct Bilirubin 0.00 Indirect Bilirubin 0.6 Aspartate Amino 40 Transf (AST/SGOT) Alanine 28 Aminotransferase ( ALT/SGPT) Alkaline 310 H Phosphatase Troponin I < 0.012 Total Protein 7.9 Albumin 2.9 L Globulin 5.00 H Albumin/Globulin 0.58 Ratio POC Venous Lactate 1.7 POC Beta HCG, NEGATIVE Qualitative Lactic Acid Level 0.9 Lipase 93 Test 01/19/19 08:00 Lactic Acid Level 1.2 Imaging Imaging DIAGNOSTIC IMAGING REPORT Patient: TAM CENTENO : 1980 Age: 38 Sex: F MR #: [id number] DOS: 01/19/19 0252 Ordering MD: MARIBELL MACE MD Location: E/R Room/Bed: PROCEDURE: CT Abdomen and Pelvis without contrast. CLINICAL INDICATION: Abdominal pain. Recent cholecystectomy. TECHNIQUE: CT scan of the abdomen and pelvis without contrast was performed on a multi-detector high-resolution CT scanner. Coronal and sagittal reformatted images obtained from the axial source images. Images were reviewed on a high- resolution PACS workstation. Exam CTDI 12.66 mGy Exam DLP 769.63 mGy-cm DICOM images are available. One or more of the following dose reduction techniques were utilized: 1.) Automated exposure control 2.) Adjustment of the mA +/- kV according to patient's size 3.) Use of iterative reconstruction technique. COMPARISON: US ABDOMEN 12/11/2018; MR 12/02/2018 FINDINGS: CT abdomen: LOWER THORAX: Elevated right hemidiaphragm and subsegmental airspace consolida tion in the lung base favored to represent atelectasis. LIVER AND GALLBLADDER: Large complex collection of gas and fluid within the right lobe of the liver measures 11.1 x 13.2 x 17.3 cm. Additional smaller heterogeneous collections present within the inferior aspect and caudal tip of the liver, including a collection which measures 7.4 x 7.0 x 11.0 cm, likely in communication with the dominant lesion. A biliary stent is in place. Small amount of gas within the intrahepatic bile ducts, which appear slightly dilated. PANCREAS: The tail of the pancreas is unremarkable. Mid and anterior body of the pancreas are suboptimally visualized in the absence of intravenous contrast due to mass effect and expansion of the liver at the giovana hepatis. SPLEEN: Normal. ADRENAL GLANDS: Normal. KIDNEYS: Contour distortion of the lateral aspect of the right kidney secondary to expansion of the right hepatic lobe. No hydronephrosis and no intrarenal calcifications. VASCULATURE: Abdominal aorta is normal in caliber. BOWEL AND MESENTERY: Stomach and small bowel are unremarkable. A normal appendix is identified. The large bowel is unremarkable. CT pelvis: The urinary bladder is decompressed and otherwise unremarkable. There is a small amount of free fluid in the pelvis. Uterus and adnexal structures appear normal for age. Bones: Regional bones and superficial soft tissues are unremarkable. IMPRESSION: 1. Large 17 cm complex collection of gas and fluid expanding the right lobe of the liver is consistent with an abscess. Additional lesions within the inferior aspect of the right hepatic lobe also likely represent abscesses, likely in communication with the dominant lesion. 2. Biliary stent in place. Trace pneumobilia and mild prominence of the central intrahepatic bile ducts. 3. Mass effect and contour distortion of the right kidney by the lesion expanding the right hepatic lobe. 4. Trace pelvic free fluid. Medications Medication Current Medications Sodium Chloride 1,000 ml @ 75 mls/hr [id number] IV Last administered on 01/19/19at 06:25; Admin Dose 75 MLS/HR; Start 01/19/19 at 04:55 IV Flush (NS 3 ml) 3 ml PER PROTOCOL IV ; Start 01/19/19 at 05:00 Ondansetron HCl (Zofran Inj) 4 mg Q6H PRN IV NAUSEA/VOMITING; Start 01/19/19 at 05:00 Acetaminophen/ Hydrocodone Bitart ([place] (5/325)) 1 tab Q6H PRN PO .MOD PAIN 4- 6; Start 01/19/19 at 05:00 Morphine Sulfate (morphine) 2 mg Q4H PRN IV .SEVERE PAIN 7-10; Start 01/19/19 at 05:00 Famotidine (Pepcid Iv) 20 mg Q12 IV Last administered on 01/19/19at 08:26; Admin Dose 20 MG; Start 01/19/19 at 09:00 Piperacillin Sod/ Tazobactam Sod 100 ml @ 200 mls/hr Q6 IVPB Last administered on 01/19/19 11:22; Admin Dose 200 MLS/HR; Start 01/19/19 at 12:00 CHING BERNABE MD Jan 19, 2019 15:08
[2019-01-19] MEDS ORDERED: VANCOMYCIN IV PER PHARMACY XX SCH (15:30)
[2019-01-19] MEDS ORDERED: MIDAZOLAM 1 MG/ML 2 ML INJ ONE (15:48)
[2019-01-19] MEDS ORDERED: FENTAnyl 50 MCG/ML VIAL ONE (15:48)
[2019-01-19] MEDS ORDERED: SOD CHLORIDE 0.9% 500 ML ONE (15:48)
[2019-01-19] MEDS ORDERED: LIDOCAINE 1% (MDV) 20 ML INJ ONE (15:54)
--- NOTE | 2019-01-19 16:02 | CONS ---
DATE OF ADMISSION: 01/19/2019 DATE OF CONSULTATION: TYPE OF CONSULTATION: Gastroenterology. Dear Dr. Faisal Nagel: Thank you for asking me to see Mrs. Shalom Zelaya in GI consultation. HISTORY OF PRESENT ILLNESS: As you know, the patient is a 38-year-old female, is admitted t o the hospital with right upper quadrant pain. She had a CAT scan of the abdomen done, which showed evidence of 16 cm size of the liver mass which is a liver abscess. She underwent ERCP in 11/2018. A t that time, she had a removal of CBD sludge and small stones and placement of a CBD stent and also p ancreatic duct stent. The patient now has had a fever and chills at home and because of the persiste nt abdominal pain, she came to the hospital. She apparently has been having this pain even before ER CP on 12/03/2018. She has no history of alcoholism. No history of other medical problems. PHYSICAL EXAMINATION: GENERAL: The patient is a 38-year-old female who at this time is alert and well built. VITAL SIGNS: She did have temperature of 100.1, pulse is 84. CARDIOVASCULAR: Normal heart sounds. RESPIRATORY: Normal breath sounds. ABDOMEN: Showed a nonspecific right upper quadrant tenderness. LABORATORY WORKUP: Potassium 3.7. Bilirubin 0.6, AST is 40, ALT 28, alkaline phosphatase 310. WBC count is 10,400, hemoglobin 9.1. DIAGNOSTIC DATA: CAT scan of the abdomen as mentioned above 16 cm liver abscess noted in the right l obe of the liver. CLINICAL IMPRESSION: The patient has evidence of a liver abscess 16 cm in diameter. She has gallsto tena and multiple stones in the gallbladder cavity noted on the previous MRI, ultrasound and the CAT s can. It appears that we need to remove the common bile duct stent and replacement of the stent after remov ing because he needs a cholecystectomy. If stent is removed, she may end up having obstructive jaund ice. I doubt that we are dealing with any amoebic abscess. PLAN: At this time, I recommend infectious disease consultation and I also recommend interventional radiology assisted drainage of the liver abscess. Once again, Dr. Nagel, thank you for this consultation. Dictated By: DILCIA COLEY/MELISSA Conf#: [id number] DID#: [id number] CC: FAISAL NAGEL MD; RIN REED MD;*[facility]*
[2019-01-19] MEDS ORDERED: VANCOMYCIN HCL 1.5 GM in SOD CHLORIDE 0.9% 250 ML IVPB SCH (17:00)
[2019-01-19] MEDS ORDERED: ACETAMINOPHEN 650MG/20.3ML CUP ONE (17:05)
[2019-01-19] MEDS ORDERED: ACETAMINOPHEN 650MG/20.3ML CUP PO PRN (17:30)
[2019-01-19] MEDS ORDERED: ACETAMINOPHEN 325 MG TAB PO PRN (17:30)
--- NOTE | 2019-01-19 17:38 | EN ---
Date/Time of Note Date/Time of Note DATE: 01/19/19 TIME: 17:28 Event Note Medicine Medicine Event Note CAREER SERVICES MANAGER called on patient at 5pm for shivering Upon arrival, patient was found with severe shivering and fever of 102.4 F with HR 159. BP 103/. Per nursing patient returned from IR procedure patient developed fever and chills. Patient was given PO Tylenol but fever increased to 104. Patient was given a dose of IV Tylenol and 1L bolus of IVF. She is currently on Vanc and Zosyn. Patient denies any pain, nausea, vomiting, dizziness, chest pain, shortness of breath, palpitations, or abdominal pain. PE: General: distress secondary to chills Lungs: clear bilaterally. no wheezing or rhonchi CVS: S1, S2, tachycardia, no murmurs Abd: soft, nontender, drain RUQ. no rebound or guarding Ext: moving all extremities Skin: slightly warm. no diaphoresis noted Recent lactic acid was normal and blood cultures already obtained in the past 24 hours Patients shivering improved after given Tylenol and cool towel on forehead. Patient stabilized and remained in telemetry for close monitoring MILAGROS ROCHA MD Jan 19, 2019 17:38
--- NOTE | 2019-01-19 18:03 | CONS ---
DATE OF ADMISSION: 01/19/2019 DATE OF CONSULTATION: TYPE OF CONSULTATION: Infectious disease. REASON FOR CONSULTATION: Antibiotic management. HISTORY OF PRESENT ILLNESS: Maryjo Zelaya is a 38-year-old female who comes in with rig ht-sided flank pain and is being seen for antibiotic management. The patient presents with right upp er quadrant pain. She has a history of gallstone pancreatitis and had an admission 2 months ago for similar episode. Pain recurred today with nausea and vomiting as well as fever. Her past problems, she had gallstone removal on 12/06/2018. PAST MEDICAL HISTORY: Otherwise noncontributory. SOCIAL HISTORY: She does not smoke, drink or abuse drugs. ALLERGIES: NONE TO PENICILLIN, SULFA OR FOODS. MEDICATIONS: Per chart. REVIEW OF SYSTEMS: As per HPI. PHYSICAL EXAMINATION: GENERAL: The patient is a well-developed, well-nourished female who is in mild distress. VITAL SIGNS: T-max of 100.7. SKIN: Without generalized rash. HEENT: Within normal limits. NECK: Supple. LYMPH NODES: None palpable. CHEST: Decreased breath sounds at the bases. HEART: Without murmur or gallop. ABDOMEN: Soft, right upper quadrant tenderness without rebound or guarding. EXTREMITIES: Without cyanosis, clubbing, or edema. RECTAL AND GENITAL: Deferred. NEUROLOGIC: No focal neurological abnormalities. ANCILLARY LABORATORY DATA: White count of 10.4, H and H 9.1 and 28.7, platelet count 455,000. BUN a nd creatinine 15/0.87, blood sugar 115. She has 37% neutrophils, but 20% bands consistent with signi ficant sepsis. The patient was started on ceftriaxone and Zosyn. IMPRESSION AND PLAN: The patient could have acute cholecystitis. A CT scan of the abdomen and pelvi s shows a large hepatic abscess. Zosyn was added to the patient's regimen and she was admitted to [facility]. This may be sequelae of chronic cholecystitis with biliary stent placement. Dr. Chase was consulted in the ER. Dr. Cantrell should be consulted. This may be drainable by invasive radiology, may require transfer to higher level of care for hepatobiliary surgery evaluation. White count today is 10.4. On her last admission, she did not have a cholecystectomy. She now has a CT scan, which s hows massive hepatic abscess. The large is abscesses, largest of which is 1.1 x 13.2 x 17.3. She de nies anorexia and weight loss and is currently on Zosyn. This is probably adequate, but I believe th at I will add vancomycin to her regimen. According to the CT scan, she has a large 17 cm complex col lection of gas and fluid expanding the right lobe of the liver consistent with an abscess. We should observe her carefully. She may require surgery in the near future. I will dictate my findings to [facility] hospitalist, Dr. Cantrell and Dr. Chase. Dictated By: RIN REED MD, JD/NTS Conf#: [id number] DID#: [id number] CC: FAISAL MCFARLAND MD;*End*
[2019-01-19] MEDS ORDERED: ACETAMINOPHEN 1000MG/100ML IV 100 ML IVPB ONE (18:30)
[2019-01-19] MEDS: ACETAMINOPHEN 325 MG TAB PO PRN (21:36)
[2019-01-20] VITALS (69 sets, daily range): BP systolic 67–105; BP diastolic 40–71; PULSE 44–88; RESP 18–38
[2019-01-20] MEDS ORDERED: SOD CHLORIDE 0.9% 1,000 ML IV ONE
[2019-01-20] MEDS: VANCOMYCIN 750 MG (PMX) 250 ML IVPB SCH ×3 (01:44→18:36)
[2019-01-20] MEDS: SOD CHLORIDE 0.9% 1,000 ML IV SCH ×3 (01:45→17:15)
[2019-01-20] MEDS ORDERED: ATROPINE 1 MG/10 ML SYRINGE ONE (03:13)
--- NOTE | 2019-01-20 03:45 | EN ---
Date/Time of Note Date/Time of Note DATE: 01/20/19 TIME: 03:37 Event Note Medicine Medicine Event Note Rapid response called around 3:08 for hypotension and bradycardia. Briefly, this is a 38 yo woman admitted about 24 hours ago for hepatic abscess who got IR-guided drain placed this morning. When I arrived the heart rate was 48, BP 74/49. Saturating 100% on nasal cannula. Patient was awake, alert oriented. She denies any symptoms including dizziness, lightheadedness, chest pressure. Only complaining of discomfort at her recent percutaneous drain site. There was also concern that the patient had not voided in 12 hours. Did a bladder scan showing about 400 cc in the bladder. Patient was on 125 cc fluids and had been bolused 1L about 3 hours prior. On review of telemetry, HR had been steadily dropping from 100s just after procedure to 50s. EKG was done confirming sinus bradycardia without AV block. The patient was up and ambulatory. She was able to walk to the bathroom and voided 500 cc urine mixed with stool. She was able to ambulate with strong steady gait without dizziness or unsteadiness. PLAN - Will bolus another 1000 cc LR - Continue cautious telemetry monitoring. FAISAL MCFARLAND MD Jan 20, 2019 03:45
[2019-01-20] MEDS ORDERED: LACTATED RINGER'S 1,000 ML IV ONE (04:00)
[2019-01-20] MEDS ORDERED: LIDOCAINE 1% (MPF) 5 ML VIAL SC ONE (06:30)
[2019-01-20] MEDS: PIPER-TAZO 3.375 GM IV (PMX) 100 ML IVPB SCH ×4 (06:40→23:48)
[2019-01-20] MEDS ORDERED: NORepinephrine 8MG/250 ML (PMX 250 ML IV SCH (07:30)
[2019-01-20] MEDS: FAMOTIDINE 20 MG INJ IV SCH ×2 (09:32→21:24)
[2019-01-20] MEDS ORDERED: ALBUMIN HUMAN 5% 250 ML ONE (10:40)
[2019-01-20] MEDS ORDERED: ALBUMIN HUMAN 5% 250 ML IV ONE (11:00)
--- NOTE | 2019-01-20 13:26 | CONS ---
Assessment/Plan Assessment/Plan Hospital Course (Demo Recall) Patient was transferred to ICU secondary to hypotensive episode she is awake alert in no distress afebrile WBC today 6.2 H&H 7.3 and 23.6 platelets 249 bands 24 BUN 11 creatinine 0.62 Blood and urine culture negative fluid cultures pending Indwelling's: Patient has right sided abdominal accordion drain Antimicrobials: Vancomycin, Zosyn Physical examination: This is a morbidly obese well-developed middle-aged woman who is alert in no distress. Head atraumatic normocephalic neck is supple chest rise symmetrical breath sounds diminished to bases. Heart: S1- S2 abdomen obese, soft bowel sounds present. Extremities without cyanosis Assessment: 1. Sepsis, present on admission 2. Large right lower lobe of the liver abscess, status post CT-guided drainage with catheter placement 3. Morbid obesity Plan: Patient is clinically stable, continue present care and antibiotics, await for drainage culture, follow GI and surgical recommendations Consultation Date/Type/Reason Admit Date/Time Jan 19, 2019 at 04:13 Initial Consult Date Type of Consult id Date/Time of Note DATE: 01/20/19 TIME: 13:25 Exam/Review of Systems Exam Vitals Vital Signs Date Temp Pulse Resp B/P (MAP) Pulse Ox O2 O2 Flow FiO2 Time Delivery Rate 01/20/19 62 12:00 01/20/19 18 84/53 (63) 100 Nasal 11:45 Cannula 01/20/19 2.0 11:00 01/20/19 97.6 08:30 Intake and Output 01/19/19 01/19/19 01/20/19 1515:00 23:00 07:00 IntakeIntake Total 100 ml OutputOutput Total 850 ml 250 ml BalanceBalance 100 ml -850 ml -250 ml Results Result Diagram: 01/20/19 0453 01/20/19 0453 Results 24hrs Laboratory Tests Test 01/19/19 17:05 01/20/19 04:04 01/20/19 04:53 01/20/19 04:54 Bedside Glucose 79 110 White Blood Count 6.2 # Red Blood Count 2.80 L Hemoglobin 7.3 L Hematocrit 23.6 L Mean Corpuscular Volume 84.3 Mean Corpuscular 26.1 L Hemoglobin Mean Corpuscular 30.9 L Hemoglobin Concent Red Cell Distribution 15.3 H Width Platelet Count 249 # Mean Platelet Volume 10.2 Immature Granulocytes % 1.100 H Neutrophils % Segmented Neutrophils 57 % (Manual) Band Neutrophils % 24 H (Manual) Lymphocytes % Lymphocytes % (Manual) 14 L Monocytes % Monocytes % (Manual) 5 Eosinophils % Basophils % Nucleated Red Blood 1 H Cells % Immature Granulocytes # 0.070 H Neutrophils # Neutrophils # (Manual) 3.6 Band Neutrophils # 1.4 H Lymphocytes (Manual) 0.8 Lymphocytes # Monocytes # Monocytes # (Manual) 0.3 Eosinophils # Basophils # Nucleated Red Blood Cells # Toxic Granulation 1+ Platelet Estimate NORMAL Giant Platelets 4 H Platelet Morphology @See below Comment Polychromasia 1+ Poikilocytosis 2+ Macrocytosis 1+ Erythrocyte 62 H Sedimentation Rate Sodium Level 139 Potassium Level 3.9 Chloride Level 110 # Carbon Dioxide Level 23 Anion Gap 6 Blood Urea Nitrogen 11 Creatinine 0.62 Est Glomerular Filtrat > 60 Rate mL/min Glucose Level 100 Hemoglobin A1c 5.9 Calcium Level 6.7 L Phosphorus Level 3.8 Magnesium Level 1.7 Total Bilirubin 0.4 Direct Bilirubin 0.00 Indirect Bilirubin 0.4 Aspartate Amino 32 Transf (AST/SGOT) Alanine 32 Aminotransferase (ALT/SG PT) Alkaline Phosphatase 168 H C-Reactive Protein 18.0 H Total Protein 4.6 #L Albumin 1.7 #L Globulin 2.90 Albumin/Globulin Ratio 0.58 Lactic Acid Level 1.5 Medications Medication Current Medications Sodium Chloride 1,000 ml @ 100 mls/hr Q10H IV Last administered on 01/20/19at 01:45; Admin Dose 100 MLS/HR; Start 01/19/19 at 04:55 IV Flush (NS 3 ml) 3 ml PER PROTOCOL IV ; Start 01/19/19 at 05:00 Ondansetron HCl (Zofran Inj) 4 mg Q6H PRN IV NAUSEA/VOMITING; Start 01/19/19 at 05:00 Acetaminophen/ Hydrocodone Bitart ([place] (5/325)) 1 tab Q6H PRN PO .MOD PAIN 4- 6 Last administered on 01/19/19at 17:35; Admin Dose 1 TAB; Start 01/19/19 at 05:00 Morphine Sulfate (morphine) 2 mg Q4H PRN IV .SEVERE PAIN 7-10; Start 01/19/19 at 05:00 Famotidine (Pepcid Iv) 20 mg Q12 IV Last administered on 01/20/19at 09:32; Admin Dose 20 MG; Start 01/19/19 at 09:00 Piperacillin Sod/ Tazobactam Sod 100 ml @ 200 mls/hr Q6 IVPB Last administered on 01/20/19at 11:56; Admin Dose 200 MLS/HR; Start 01/19/19 at 12:00 Vancomycin HCl (Vanco Iv Per Pharmacy) VANCOMYCIN PER PHARMACY PER PROTOCOL XX ; Start 01/19/19 at 15:30 Acetaminophen (Tylenol Tab) 650 mg Q4H PRN PO MILD PAIN(1-3)OR ELEVATED TEMP L ast administered on 01/19/19at 21:36; Admin Dose 650 MG; Start 01/19/19 at 17:30 Norepinephrine 250 ml @ 1.875 mls/ hr TITRATE IV ; Start 01/20/19 at 07:30 Vancomycin/Sodium Chloride 250 ml @ 125 mls/hr Q8H IVPB ; Start 01/20/19 at 18:00 Miscellaneous Information (*Rx Drug Level Order Reminder*) VANCO TROUGH 01/20 @ 1,700 1700 ONCE XX ; Start 01/20/19 at 17:00; Stop 01/20/19 at 17:01 MANDA LUNA NP Jan 20, 2019 13:26
--- NOTE | 2019-01-20 14:25 | RADRPT ---
Vent Rate: 53 bpm RR Interval: 1136 msec [place] Interval: 152 msec QRS Duration: 84 msec QT Interval: 513 msec QTC Interval: 481 msec P-R-T [place]: 50 - 71 - 66 degrees Sinus rhythm...normal P axis, V-rate 50- 99 Low voltage, extremity leads...all extremity leads <0.5mV Electronically Signed By: Chriss Streeter
--- NOTE | 2019-01-20 14:57 | PN ---
Date/Time of Note Date/Time of Note DATE: 01/20/19 TIME: 14:53 Assessment/Plan VTE Prophylaxis Risk score (from Ns)>0 risk: 1 SCD applied (from Ns): Yes Pharmacological prophylaxis: NA/contraindicated Pharm contraindication: surgical contra Lines/Catheters [facility]from [facility] Peripheral IV Urinary Cath still in place: No Assessment/Plan Hospital Course 38-year-old female with recent history of gallstone pancreatitis status post CBD stenting and pancreatic duct stent placement on 12/03/2018, who came to the emergency room with chief complaint of abdominal pain and right-sided flank pain with CT showing 17 cm complex collection of gas and fluid expanding the right lobe of the liver consistent with an abscess, who was admitted to inpatient setting for treatment and evaluation. 1. Hepatic abscess -Status post CT-guided drainage, monitor output -Continue antibiotics including coverage for anaerobes. -Continue to NPO and IVFs -Gastroenterology and general surgery has been consulted. 2. Septic shock secondary to hepatic abscess Sepsis criteria: Bands>10%,Tachypnea>20, HR>90. Infectious source: Intraabdominal source (liver abscess) -Continue management as per #1 -Blood pressure has improved with fluids and albumin, no indication for pressors at this time 3. History of gallstone pancreatitis, S/P biliary stent and pancreatic duct stent placement on 12/03/2018 -Gastroenterology consult has been obtained DVT prophylaxis -Bilateral SCDs DC planning -Continue antimicrobials. -Continue pain control. -Monitor in ICU overnight Result Diagram: 01/20/19 0453 01/20/19 0453 Results 24hrs Laboratory Tests Test 01/19/19 17:05 01/20/19 04:04 01/20/19 04:53 01/20/19 04:54 Bedside Glucose 79 110 White Blood Count 6.2 # Red Blood Count 2.80 L Hemoglobin 7.3 L Hematocrit 23.6 L Mean Corpuscular Volume 84.3 Mean Corpuscular 26.1 L Hemoglobin Mean Corpuscular 30.9 L Hemoglobin Concent Red Cell Distribution 15.3 H Width Platelet Count 249 # Mean Platelet Volume 10.2 Immature Granulocytes % 1.100 H Neutrophils % Segmented Neutrophils 57 % (Manual) Band Neutrophils % 24 H (Manual) Lymphocytes % Lymphocytes % (Manual) 14 L Monocytes % Monocytes % (Manual) 5 Eosinophils % Basophils % Nucleated Red Blood 1 H Cells % Immature Granulocytes # 0.070 H Neutrophils # Neutrophils # (Manual) 3.6 Band Neutrophils # 1.4 H Lymphocytes (Manual) 0.8 Lymphocytes # Monocytes # Monocytes # (Manual) 0.3 Eosinophils # Basophils # Nucleated Red Blood Cells # Toxic Granulation 1+ Platelet Estimate NORMAL Giant Platelets 4 H Platelet Morphology @See below Comment Polychromasia 1+ Poikilocytosis 2+ Macrocytosis 1+ Erythrocyte 62 H Sedimentation Rate Sodium Level 139 Potassium Level 3.9 Chloride Level 110 # Carbon Dioxide Level 23 Anion Gap 6 Blood Urea Nitrogen 11 Creatinine 0.62 Est Glomerular Filtrat > 60 Rate mL/min Glucose Level 100 Hemoglobin A1c 5.9 Calcium Level 6.7 L Phosphorus Level 3.8 Magnesium Level 1.7 Total Bilirubin 0.4 Direct Bilirubin 0.00 Indirect Bilirubin 0.4 Aspartate Amino 32 Transf (AST/SGOT) Alanine 32 Aminotransferase (ALT/SG PT) Alkaline Phosphatase 168 H C-Reactive Protein 18.0 H Total Protein 4.6 #L Albumin 1.7 #L Globulin 2.90 Albumin/Globulin Ratio 0.58 Lactic Acid Level 1.5 Subjective 24 Hr Interval Summary Constitutional: no complaints Exam/Review of Systems Exam Vitals Vital Signs Date Temp Pulse Resp B/P (MAP) Pulse Ox O2 O2 Flow FiO2 Time Delivery Rate 01/20/19 64 24 97/57 (70) 95 Nasal 14:00 Cannula 01/20/19 98.6 12:00 01/20/19 2.0 11:00 Intake and Output 01/19/19 01/19/19 01/20/19 1515:00 23:00 07:00 IntakeIntake Total 100 ml OutputOutput Total 850 ml 250 ml BalanceBalance 100 ml -850 ml -250 ml Constitutional: alert, oriented Respiratory: clear to auscultation Cardiovascular: regular rate and rhythm Gastrointestinal: soft; No distended Musculoskeletal: nl extremities to inspection Results Results 24hrs Laboratory Tests Test 01/19/19 17:05 01/20/19 04:04 01/20/19 04:53 01/20/19 04:54 Bedside Glucose 79 110 White Blood Count 6.2 # Red Blood Count 2.80 L Hemoglobin 7.3 L Hematocrit 23.6 L Mean Corpuscular Volume 84.3 Mean Corpuscular 26.1 L Hemoglobin Mean Corpuscular 30.9 L Hemoglobin Concent Red Cell Distribution 15.3 H Width Platelet Count 249 # Mean Platelet Volume 10.2 Immature Granulocytes % 1.100 H Neutrophils % Segmented Neutrophils 57 % (Manual) Band Neutrophils % 24 H (Manual) Lymphocytes % Lymphocytes % (Manual) 14 L Monocytes % Monocytes % (Manual) 5 Eosinophils % Basophils % Nucleated Red Blood 1 H Cells % Immature Granulocytes # 0.070 H Neutrophils # Neutrophils # (Manual) 3.6 Band Neutrophils # 1.4 H Lymphocytes (Manual) 0.8 Lymphocytes # Monocytes # Monocytes # (Manual) 0.3 Eosinophils # Basophils # Nucleated Red Blood Cells # Toxic Granulation 1+ Platelet Estimate NORMAL Giant Platelets 4 H Platelet Morphology @See below Comment Polychromasia 1+ Poikilocytosis 2+ Macrocytosis 1+ Erythrocyte 62 H Sedimentation Rate Sodium Level 139 Potassium Level 3.9 Chloride Level 110 # Carbon Dioxide Level 23 Anion Gap 6 Blood Urea Nitrogen 11 Creatinine 0.62 Est Glomerular Filtrat > 60 Rate mL/min Glucose Level 100 Hemoglobin A1c 5.9 Calcium Level 6.7 L Phosphorus Level 3.8 Magnesium Level 1.7 Total Bilirubin 0.4 Direct Bilirubin 0.00 Indirect Bilirubin 0.4 Aspartate Amino 32 Transf (AST/SGOT) Alanine 32 Aminotransferase (ALT/SG PT) Alkaline Phosphatase 168 H C-Reactive Protein 18.0 H Total Protein 4.6 #L Albumin 1.7 #L Globulin 2.90 Albumin/Globulin Ratio 0.58 Lactic Acid Level 1.5 Medications Medication Current Medications Sodium Chloride 1,000 ml @ 100 mls/hr Q10H IV Last administered on 01/20/19at 01:45; Admin Dose 100 MLS/HR; Start 01/19/19 at 04:55 IV Flush (NS 3 ml) 3 ml PER PROTOCOL IV ; Start 01/19/19 at 05:00 Ondansetron HCl (Zofran Inj) 4 mg Q6H PRN IV NAUSEA/VOMITING; Start 01/19/19 at 05:00 Acetaminophen/ Hydrocodone Bitart ([place] (5/325)) 1 tab Q6H PRN PO .MOD PAIN 4- 6 Last administered on 01/19/19at 17:35; Admin Dose 1 TAB; Start 01/19/19 at 05:00 Morphine Sulfate (morphine) 2 mg Q4H PRN IV .SEVERE PAIN 7-10; Start 01/19/19 at 05:00 Famotidine (Pepcid Iv) 20 mg Q12 IV Last administered on 01/20/19at 09:32; Admin Dose 20 MG; Start 01/19/19 at 09:00 Piperacillin Sod/ Tazobactam Sod 100 ml @ 200 mls/hr Q6 IVPB Last administered on 01/20/19at 11:56; Admin Dose 200 MLS/HR; Start 01/19/19 at 12:00 Vancomycin HCl (Vanco Iv Per Pharmacy) VANCOMYCIN PER PHARMACY PER PROTOCOL XX ; Start 01/19/19 at 15:30 Acetaminophen (Tylenol Tab) 650 mg Q4H PRN PO MILD PAIN(1-3)OR ELEVATED TEMP Last administered on 01/19/19at 21:36; Admin Dose 650 MG; Start 01/19/19 at 17:30 Norepinephrine 250 ml @ 1.875 mls/ hr TITRATE IV ; Start 01/20/19 at 07:30 Vancomycin/Sodium Chloride 250 ml @ 125 mls/hr Q8H IVPB ; Start 01/20/19 at 18:00 Miscellaneous Information (*Rx Drug Level Order Reminder*) VANCO TROUGH 01/20 @ 1,700 1700 ONCE XX ; Start 01/20/19 at 17:00; Stop 01/20/19 at 17:01 TANISHA JACKSON Jan 20, 2019 14:57
--- NOTE | 2019-01-20 19:27 | CONS ---
DATE OF ADMISSION: 01/19/2019 DATE OF CONSULTATION: REASON FOR CONSULTATION: The patient is seen by me because of a liver abscess. HISTORY OF PRESENT ILLNESS: The patient was admitted with abdominal pain. CAT scan showed a mass or liver abscess measuring as big as 17 cm. The interventional radiology was involved and the drainage tube was placed into the liver abscess. I am, at this time, unable to ascertain how much of pus was drained during the procedure; however, because of the low blood pressure, the patient was transferre d to the ICU. PHYSICAL EXAMINATION: GENERAL: The patient is alert. VITAL SIGNS: Blood pressure is around 86/70. She is not on any vasopressors and mean arterial press ure is about 70. CARDIOVASCULAR: Normal heart sounds. RESPIRATORY: Normal breath sounds. ABDOMEN: Soft. LABORATORY WORKUP: WBC count 6200, hemoglobin 7.3. The BUN is 11, creatinine is 0.62. Alkaline kamron sphatase ____. CLINICAL IMPRESSION: The liver abscess was drained and a drainage catheter was put in today. The pa tient continues to drain some pus but no significant drainage noted at this time. She has a CBD stent and a pancreatic duct stent. This stent needs to be removed once the patient's b lood pressure stabilizes. Dictated By: DILCIA COLEY/NTS Conf#: [id number] DID#: [id number] CC: FAISAL MCFARLAND MD;*End*
[2019-01-21] VITALS (41 sets, daily range): BP systolic 75–120; BP diastolic 44–110; PULSE 59–104; RESP 15–36
[2019-01-21] MEDS: VANCOMYCIN 750 MG (PMX) 250 ML IVPB SCH ×2 (02:15→09:53)
[2019-01-21] MEDS: SOD CHLORIDE 0.9% 1,000 ML IV SCH ×2 (04:00→14:51)
[2019-01-21] MEDS: PIPER-TAZO 3.375 GM IV (PMX) 100 ML IVPB SCH ×4 (05:40→23:29)
[2019-01-21] MEDS: morphine 2 MG INJ IV PRN ×2 (06:44→19:57)
[2019-01-21] MEDS: FAMOTIDINE 20 MG INJ IV SCH ×2 (09:52→21:11)
--- NOTE | 2019-01-21 14:24 | CONS ---
Assessment/Plan Assessment/Plan Hospital Course (Demo Recall) No acute changes overnight patient is awake feels better looks comfortable no fevers. T-max 99.6. WBC 10.9 platelets 327 neutrophils 76 bands 9 BUN 7 creatinine 0.64 Microbiology: Fluid culture grew strep Indwelling's: Patient has right sided abdominal accordion drain Antimicrobials: Vancomycin, Zosyn Physical examination: This is a morbidly obese well-developed middle-aged woman who is alert in no distress. Head atraumatic normocephalic neck is supple chest rise symmetrical breath sounds diminished to bases. Heart: S1- S2 abdomen obese, soft bowel sounds present. Extremities without cyanosis Assessment: 1. Sepsis, present on admission 2. Large right lower lobe of the liver abscess, status post CT-guided drainage with catheter placement 3. Morbid obesity Plan: Stable, dc Vanco, continue antibiotics, follow GI and surgical recommendations Consultation Date/Type/Reason Admit Date/Time Jan 19, 2019 at 04:13 Initial Consult Date Type of Consult id Date/Time of Note DATE: 01/21/19 TIME: 14:21 Exam/Review of Systems Exam Vitals Vital Signs Date Temp Pulse Resp B/P (MAP) Pulse Ox O2 O2 Flow FiO2 Time Delivery Rate 01/21/19 70 24 94/51 (65) 99 Nasal 12:30 Cannula 01/21/19 97.6 12:00 01/21/19 2.0 12:00 Intake and Output 01/20/19 01/20/19 01/21/19 1515:00 23:00 07:00 IntakeIntake Total 4590 ml 1125 ml 1050 ml OutputOutput Total 550 ml 350 ml 375 ml BalanceBalance 4040 ml 775 ml 675 ml Results Result Diagram: 01/21/19 0445 01/21/19 0455 Results 24hrs Laboratory Tests Test 01/20/19 17:05 01/21/19 04:45 01/21/19 04:55 01/21/19 05:01 Vancomycin Level 10.7 Trough White Blood Count 10.9 #H Red Blood Count 3.25 L Hemoglobin 8.6 L Hematocrit 27.0 L Mean Corpuscular 83.1 Volume Mean Corpuscular 26.5 L Hemoglobin Mean Corpuscular 31.9 L Hemoglobin Concent Red Cell 15.6 H Distribution Width Platelet Count 327 # Mean Platelet 10.5 H Volume Immature 0.700 H Granulocytes % Neutrophils % Segmented 76 Neutrophils % (Manual) Band Neutrophils % 9 H (Manual) Lymphocytes % Lymphocytes % 11 L (Manual) Reactive 1 H Lymphocytes % (Manual) Monocytes % Monocytes % 2 (Manual) Eosinophils % Eosinophils % 1 (Manual) Basophils % Nucleated Red Blood 0.0 Cells % Immature 0.080 H Granulocytes # Neutrophils # Neutrophils # 8.4 H (Manual) Band Neutrophils # 0.9 H Lymphocytes 1.1 (Manual) Lymphocytes # Reactive 0.1 H Lymphocytes # Monocytes # Monocytes # 0.2 L (Manual) Eosinophils # Basophils # Nucleated Red Blood Cells # Platelet Estimate NORMAL Giant Platelets 3 H Polychromasia 3+ Poikilocytosis 1+ Sodium Level 138 Potassium Level 3.6 Chloride Level 110 Carbon Dioxide 23 Level Anion Gap 5 Blood Urea Nitrogen 7 Creatinine 0.64 Est Glomerular > 60 Filtrat Rate mL/min Glucose Level 80 Calcium Level 7.2 L Lab Scanned Report BLOOD TRANSFUSION Medications Medication Current Medications Sodium Chloride 1,000 ml @ 100 mls/hr Q10H IV Last administered on 01/21/19 04:00; Admin Dose 100 MLS/HR; Start 01/19/19 at 04:55 IV Flush (NS 3 ml) 3 ml PER PROTOCOL IV ; Start 01/19/19 at 05:00 Ondansetron HCl (Zofran Inj) 4 mg Q6H PRN IV NAUSEA/VOMITING; Start 01/19/19 at 05:00 Acetaminophen/ Hydrocodone Bitart ([place] (5/325)) 1 tab Q6H PRN PO .MOD PAIN 4- 6 Last administered on 01/19/19at 17:35; Admin Dose 1 TAB; Start 01/19/19 at 05:00 Morphine Sulfate (morphine) 2 mg Q4H PRN IV .SEVERE PAIN 7-10 Last administered on 01/21/19 06:44; Admin Dose 2 MG; Start 01/19/19 at 05:00 Famotidine (Pepcid Iv) 20 mg Q12 IV Last administered on 01/21/19 09:52; Admin Dose 20 MG; Start 01/19/19 at 09:00 Piperacillin Sod/ Tazobactam Sod 100 ml @ 200 mls/hr Q6 IVPB Last administered on 01/21/19 11:40; Admin Dose 200 MLS/HR; Start 01/19/19 at 12:00 Vancomycin HCl (Vanco Iv Per Pharmacy) VANCOMYCIN PER PHARMACY PER PROTOCOL XX ; Start 01/19/19 at 15:30 Acetaminophen (Tylenol Tab) 650 mg Q4H PRN PO MILD PAIN(1-3)OR ELEVATED TEMP Last administered on 01/19/19at 21:36; Admin Dose 650 MG; Start 01/19/19 at 17:30 Vancomycin/Sodium Chloride 250 ml @ 125 mls/hr Q8H IVPB Last administered on 01/21/19at 09:53; Admin Dose 125 MLS/HR; Start 01/20/19 at 18:00 IV Flush (NS 10 ml) 10 ml PRN PRN IV IV PROTOCOL; Start 01/20/19 at 17:00 MANDA LUNA NP Jan 21, 2019 14:24
--- NOTE | 2019-01-21 14:28 | PN ---
Date/Time of Note Date/Time of Note DATE: 01/21/19 TIME: 14:27 Assessment/Plan VTE Prophylaxis Risk score (from Ns)>0 risk: 1 SCD applied (from [facility] [place]): Yes Pharmacological prophylaxis: NA/contraindicated Pharm contraindication: surgical contra Lines/Catheters Urinary Cath still in place: No Assessment/Plan Hospital Course 38-year-old female with recent history of gallstone pancreatitis status post CBD stenting and pancreatic duct stent placement on 12/03/2018, who came to the emergency room with chief complaint of abdominal pain and right-sided flank pain with CT showing 17 cm complex collection of gas and fluid expanding the right lobe of the liver consistent with an abscess, who was admitted to inpatient setting for treatment and evaluation. 1. Hepatic abscess -Status post CT-guided drainage, monitor output -Continue antibiotics including coverage for anaerobes. -Continue to NPO and IVFs -Gastroenterology and general surgery has been consulted. 2. Septic shock secondary to hepatic abscess Sepsis criteria: Bands>10%,Tachypnea>20, HR>90. Infectious source: Intraabdominal source (liver abscess) -Patient has no further evidence of shock, transfer to telemetry -Blood pressure has improved with fluids and albumin, no indication for pressors at this time 3. History of gallstone pancreatitis, S/P biliary stent and pancreatic duct stent placement on 12/03/2018 -Gastroenterology consult appreciated, patient will require stent removal once BP stable DVT prophylaxis -Bilateral SCDs DC planning -Continue antimicrobials -Stent removal per GI -Downgrade to telemetry Result Diagram: 01/21/19 0445 01/21/19 0455 Results 24hrs Laboratory Tests Test 01/20/19 17:05 01/21/19 04:45 01/21/19 04:55 01/21/19 05:01 Vancomycin Level 10.7 Trough White Blood Count 10.9 #H Red Blood Count 3.25 L Hemoglobin 8.6 L Hematocrit 27.0 L Mean Corpuscular 83.1 Volume Mean Corpuscular 26.5 L Hemoglobin Mean Corpuscular 31.9 L Hemoglobin Concent Red Cell 15.6 H Distribution Width Platelet Count 327 # Mean Platelet 10.5 H Volume Immature 0.700 H Granulocytes % Neutrophils % Segmented 76 Neutrophils % (Manual) Band Neutrophils % 9 H (Manual) Lymphocytes % Lymphocytes % 11 L (Manual) Reactive 1 H Lymphocytes % (Manual) Monocytes % Monocytes % 2 (Manual) Eosinophils % Eosinophils % 1 (Manual) Basophils % Nucleated Red Blood 0.0 Cells % Immature 0.080 H Granulocytes # Neutrophils # Neutrophils # 8.4 H (Manual) Band Neutrophils # 0.9 H Lymphocytes 1.1 (Manual) Lymphocytes # Reactive 0.1 H Lymphocytes # Monocytes # Monocytes # 0.2 L (Manual) Eosinophils # Basophils # Nucleated Red Blood Cells # Platelet Estimate NORMAL Giant Platelets 3 H Polychromasia 3+ Poikilocytosis 1+ Sodium Level 138 Potassium Level 3.6 Chloride Level 110 Carbon Dioxide 23 Level Anion Gap 5 Blood Urea Nitrogen 7 Creatinine 0.64 Est Glomerular > 60 Filtrat Rate mL/min Glucose Level 80 Calcium Level 7.2 L Lab Scanned Report BLOOD TRANSFUSION Subjective 24 Hr Interval Summary Constitutional: no complaints Exam/Review of Systems Exam Vitals Vital Signs Date Temp Pulse Resp B/P (MAP) Pulse Ox O2 O2 Flow FiO2 Time Delivery Rate 01/21/19 70 24 94/51 (65) 99 Nasal 12:30 Cannula 01/21/19 97.6 12:00 01/21/19 2.0 12:00 Intake and Output 01/20/19 01/20/19 01/21/19 1515:00 23:00 07:00 IntakeIntake Total 4590 ml 1125 ml 1050 ml OutputOutput Total 550 ml 350 ml 375 ml BalanceBalance 4040 ml 775 ml 675 ml Constitutional: alert, oriented Respiratory: clear to auscultation Cardiovascular: regular rate and rhythm Gastrointestinal: soft; No distended Musculoskeletal: nl extremities to inspection Results Results 24hrs Laboratory Tests Test 01/20/19 17:05 01/21/19 04:45 01/21/19 04:55 01/21/19 05:01 Vancomycin Level 10.7 Trough White Blood Count 10.9 #H Red Blood Count 3.25 L Hemoglobin 8.6 L Hematocrit 27.0 L Mean Corpuscular 83.1 Volume Mean Corpuscular 26.5 L Hemoglobin Mean Corpuscular 31.9 L Hemoglobin Concent Red Cell 15.6 H Distribution Width Platelet Count 327 # Mean Platelet 10.5 H Volume Immature 0.700 H Granulocytes % Neutrophils % Segmented 76 Neutrophils % (Manual) Band Neutrophils % 9 H (Manual) Lymphocytes % Lymphocytes % 11 L (Manual) Reactive 1 H Lymphocytes % (Manual) Monocytes % Monocytes % 2 (Manual) Eosinophils % Eosinophils % 1 (Manual) Basophils % Nucleated Red Blood 0.0 Cells % Immature 0.080 H Granulocytes # Neutrophils # Neutrophils # 8.4 H (Manual) Band Neutrophils # 0.9 H Lymphocytes 1.1 (Manual) Lymphocytes # Reactive 0.1 H Lymphocytes # Monocytes # Monocytes # 0.2 L (Manual) Eosinophils # Basophils # Nucleated Red Blood Cells # Platelet Estimate NORMAL Giant Platelets 3 H Polychromasia 3+ Poikilocytosis 1+ Sodium Level 138 Potassium Level 3.6 Chloride Level 110 Carbon Dioxide 23 Level Anion Gap 5 Blood Urea Nitrogen 7 Creatinine 0.64 Est Glomerular > 60 Filtrat Rate mL/min Glucose Level 80 Calcium Level 7.2 L Lab Scanned Report BLOOD TRANSFUSION Medications Medication Current Medications Sodium Chloride 1,000 ml @ 100 mls/hr Q10H IV Last administered on 01/21/19at 04:00; Admin Dose 100 MLS/HR; Start 01/19/19 at 04:55 IV Flush (NS 3 ml) 3 ml PER PROTOCOL IV ; Start 01/19/19 at 05:00 Ondansetron HCl (Zofran Inj) 4 mg Q6H PRN IV NAUSEA/VOMITING; Start 01/19/19 at 05:00 Acetaminophen/ Hydrocodone Bitart ([place] (5/325)) 1 tab Q6H PRN PO .MOD PAIN 4- 6 Last administered on 01/19/19at 17:35; Admin Dose 1 TAB; Start 01/19/19 at 05:00 Morphine Sulfate (morphine) 2 mg Q4H PRN IV .SEVERE PAIN 7-10 Last administered on 01/21/19at 06:44; Admin Dose 2 MG; Start 01/19/19 at 05:00 Famotidine (Pepcid Iv) 20 mg Q12 IV Last administered on 01/21/19at 09:52; Admin Dose 20 MG; Start 01/19/19 at 09:00 Piperacillin Sod/ Tazobactam Sod 100 ml @ 200 mls/hr Q6 IVPB Last administered on 01/21/19at 11:40; Admin Dose 200 MLS/HR; Start 01/19/19 at 12:00 Vancomycin HCl (Vanco Iv Per Pharmacy) VANCOMYCIN PER PHARMACY PER PROTOCOL XX ; Start 01/19/19 at 15:30 Acetaminophen (Tylenol Tab) 650 mg Q4H PRN PO MILD PAIN(1-3)OR ELEVATED TEMP Last administered on 01/19/19at 21:36; Admin Dose 650 MG; Start 01/19/19 at 17:30 Vancomycin/Sodium Chloride 250 ml @ 125 mls/hr Q8H IVPB Last administered on 01/21/19at 09:53; Admin Dose 125 MLS/HR; Start 01/20/19 at 18:00 IV Flush (NS 10 ml) 10 ml PRN PRN IV IV PROTOCOL; Start 01/20/19 at 17:00 TANISHA JACKSON Jan 21, 2019 14:28
[2019-01-22] VITALS (12 sets, daily range): BP systolic 84–137; BP diastolic 52–88; PULSE 64–96; RESP 20–22
[2019-01-22] MEDS: morphine 2 MG INJ IV PRN ×2 (01:41→05:42)
[2019-01-22] MEDS: PIPER-TAZO 3.375 GM IV (PMX) 100 ML IVPB SCH ×2 (05:43→11:43)
--- NOTE | 2019-01-22 06:29 | PN ---
DATE: 01/21/2019 SUBJECTIVE: The patient admitted with abdominal pain and fever. She had a larger liver abscess and initially from the day before yesterday about 1000 mL of pus was drained from the liver abscess. PHYSICAL EXAMINATION: GENERAL: At this time, on examination, she appears alert. VITAL SIGNS: Blood pressure is 108/80. CARDIOVASCULAR: Normal heart sounds. RESPIRATORY: Showed normal breath sounds. ABDOMEN: Showed soft abdomen. LABORATORY WORKUP: Her WBC count is 10,900, hemoglobin is 8.6. The alkaline phosphatase is 168, AST 32, ALT 32. CLINICAL IMPRESSION: 1. The liver abscess being drained. 2. She has got a CBD stent and pancreatic duct stent. This needs to be removed, which ERCP will be done when the patient's vital signs are stable. Dictated By: DILCIA COLEY/MELISSA Conf#: [id number] DID#: [id number] CC: DILCIA LYMAN MD; FAISAL MCFARLAND MD;*[facility]*
[2019-01-22] MEDS: FAMOTIDINE 20 MG INJ IV SCH ×2 (08:51→20:50)
[2019-01-22] MEDS ORDERED: POTASSIUM CHLORIDE (SR) 20 MEQ TAB PO STA (10:10)
--- NOTE | 2019-01-22 15:35 | PN ---
Date/Time of Note Date/Time of Note DATE: 01/22/19 TIME: 15:34 Assessment/Plan VTE Prophylaxis Risk score (from Ns)>0 risk: 3 Pharmacological prophylaxis: NA/contraindicated Pharm contraindication: surgical contra Lines/Catheters Urinary Cath still in place: No Assessment/Plan Hospital Course 38-year-old female with recent history of gallstone pancreatitis status post CBD stenting and pancreatic duct stent placement on 12/03/2018, who came to the emergency room with chief complaint of abdominal pain and right-sided flank pain with CT showing 17 cm complex collection of gas and fluid expanding the right lobe of the liver consistent with an abscess, who was admitted to inpatient setting for treatment and evaluation. 1. Hepatic abscess -Status post CT-guided drainage, monitor output -Continue antibiotics including coverage for anaerobes. -Continue to NPO and IVFs -Gastroenterology and general surgery has been consulted. 2. Septic shock secondary to hepatic abscess Sepsis criteria: Bands>10%,Tachypnea>20, HR>90. Infectious source: Intraabdominal source (liver abscess) -Patient has no further evidence of shock, transfer to telemetry -Blood pressure has improved with fluids and albumin, no indication for pressors at this time 3. History of gallstone pancreatitis, S/P biliary stent and pancreatic duct stent placement on 12/03/2018 -Gastroenterology consult appreciated, patient will require stent removal tomorrow DVT prophylaxis -Bilateral SCDs DC planning -Continue antimicrobials -Stent removal per GI Result Diagram: 01/22/19 0539 01/22/19 0539 Results 24hrs Laboratory Tests Test 01/22/19 05:39 White Blood Count 7.7 # Red Blood Count 3.13 L Hemoglobin 8.3 L Hematocrit 25.8 L Mean Corpuscular Volume 82.4 Mean Corpuscular Hemoglobin 26.5 L Mean Corpuscular Hemoglobin Concent 32.2 Red Cell Distribution Width 15.6 H Platelet Count 309 Mean Platelet Volume 9.6 Immature Granulocytes % 0.600 H Neutrophils % 69.1 Lymphocytes % 19.6 Monocytes % 8.7 Eosinophils % 1.7 Basophils % 0.3 Nucleated Red Blood Cells % 0.0 Immature Granulocytes # 0.050 H Neutrophils # 5.3 Lymphocytes # 1.5 Monocytes # 0.7 Eosinophils # 0.1 Basophils # 0.0 Nucleated Red Blood Cells # 0.0 Sodium Level 138 Potassium Level 3.3 L Chloride Level 108 Carbon Dioxide Level 26 Anion Gap 4 L Blood Urea Nitrogen 5 L Creatinine 0.65 Est Glomerular Filtrat Rate mL/min > 60 Glucose Level 107 Calcium Level 7.0 L Subjective 24 Hr Interval Summary Constitutional: no complaints Exam/Review of Systems Exam Vitals Vital Signs Date Temp Pulse Resp B/P (MAP) Pulse Ox O2 O2 Flow FiO2 Time Delivery Rate 01/22/19 98.7 77 20 92/66 (75) 96 15:00 01/21/19 Nasal 2.0 21:45 Cannula Intake and Output 01/21/19 01/21/19 01/22/19 1515:00 23:00 07:00 IntakeIntake Total 1050 ml 1300 ml 500 ml OutputOutput Total 200 ml 510 ml 53 ml BalanceBalance 850 ml 790 ml 447 ml Constitutional: alert, oriented Respiratory: clear to auscultation Cardiovascular: regular rate and rhythm Gastrointestinal: soft; No distended Musculoskeletal: nl extremities to inspection Results Results 24hrs Laboratory Tests Test 01/22/19 05:39 White Blood Count 7.7 # Red Blood Count 3.13 L Hemoglobin 8.3 L Hematocrit 25.8 L Mean Corpuscular Volume 82.4 Mean Corpuscular Hemoglobin 26.5 L Mean Corpuscular Hemoglobin Concent 32.2 Red Cell Distribution Width 15.6 H Platelet Count 309 Mean Platelet Volume 9.6 Immature Granulocytes % 0.600 H Neutrophils % 69.1 Lymphocytes % 19.6 Monocytes % 8.7 Eosinophils % 1.7 Basophils % 0.3 Nucleated Red Blood Cells % 0.0 Immature Granulocytes # 0.050 H Neutrophils # 5.3 Lymphocytes # 1.5 Monocytes # 0.7 Eosinophils # 0.1 Basophils # 0.0 Nucleated Red Blood Cells # 0.0 Sodium Level 138 Potassium Level 3.3 L Chloride Level 108 Carbon Dioxide Level 26 Anion Gap 4 L Blood Urea Nitrogen 5 L Creatinine 0.65 Est Glomerular Filtrat Rate mL/min > 60 Glucose Level 107 Calcium Level 7.0 L Medications Medication Current Medications IV Flush (NS 3 ml) 3 ml PER PROTOCOL IV ; Start 01/19/19 at 05:00 Ondansetron HCl (Zofran Inj) 4 mg Q6H PRN IV NAUSEA/VOMITING; Start 01/19/19 at 05:00 Acetaminophen/ Hydrocodone Bitart ([place] (5/325)) 1 tab Q6H PRN PO .MOD PAIN 4- 6 Last administered on 01/19/19 17:35; Admin Dose 1 TAB; Start 01/19/19 at 05:00 Morphine Sulfate (morphine) 2 mg Q4H PRN IV .SEVERE PAIN 7-10 Last administered on 01/22/19 05:42; Admin Dose 2 MG; Start 01/19/19 at 05:00 Famotidine (Pepcid Iv) 20 mg Q12 IV Last administered on 01/22/19 08:51; Admin Dose 20 MG; Start 01/19/19 at 09:00 Piperacillin Sod/ Tazobactam Sod 100 ml @ 200 mls/hr Q6 IVPB Last administered on 01/22/19 11:43; Admin Dose 200 MLS/HR; Start 01/19/19 at 12:00 Acetaminophen (Tylenol Tab) 650 mg Q4H PRN PO MILD PAIN(1-3)OR ELEVATED TEMP Last administered on 01/19/19at 21:36; Admin Dose 650 MG; Start 01/19/19 at 17:30 IV Flush (NS 10 ml) 10 ml PRN PRN IV IV PROTOCOL; Start 01/20/19 at 17:00 TANISHA JACKSON Jan 22, 2019 15:35
--- NOTE | 2019-01-22 16:13 | CONS ---
Assessment/Plan Assessment/Plan Hospital Course (Demo Recall) Awake looks comfortable no fevers overnight still significant amount of drainage from accordion drain WBC 7.7 no shift no bands BUN 5 creatinine 0.65 Microbiology: Fluid culture grew strep Indwelling's: Patient has right sided abdominal accordion drain Antimicrobials: Zosyn Physical examination: This is a morbidly obese well-developed middle-aged woman who is alert in no distress. Head atraumatic normocephalic neck is supple chest rise symmetrical breath sounds diminished to bases. Heart: S1- S2 abdomen obese, soft bowel sounds present. Extremities without cyanosis Assessment: 1. Sepsis, present on admission 2. Large right lower lobe of the liver abscess, status post CT-guided drainage with catheter placement 3. Morbid obesity Plan: Stable, change antibiotics to cefepime Consultation Date/Type/Reason Admit Date/Time Jan 19, 2019 at 04:13 Initial Consult Date Type of Consult id Date/Time of Note DATE: 01/22/19 TIME: 16:12 Exam/Review of Systems Exam Vitals Vital Signs Date Temp Pulse Resp B/P (MAP) Pulse Ox O2 O2 Flow FiO2 Time Delivery Rate 01/22/19 98.7 77 20 92/66 (75) 96 15:00 01/21/19 Nasal 2.0 21:45 Cannula Intake and Output 01/21/19 01/21/19 01/22/19 1515:00 23:00 07:00 IntakeIntake Total 1050 ml 1300 ml 500 ml OutputOutput Total 200 ml 510 ml 53 ml BalanceBalance 850 ml 790 ml 447 ml Results Result Diagram: 01/22/19 0539 01/22/19 0539 Results 24hrs Laboratory Tests Test 01/22/19 05:39 White Blood Count 7.7 # Red Blood Count 3.13 L Hemoglobin 8.3 L Hematocrit 25.8 L Mean Corpuscular Volume 82.4 Mean Corpuscular Hemoglobin 26.5 L Mean Corpuscular Hemoglobin Concent 32.2 Red Cell Distribution Width 15.6 H Platelet Count 309 Mean Platelet Volume 9.6 Immature Granulocytes % 0.600 H Neutrophils % 69.1 Lymphocytes % 19.6 Monocytes % 8.7 Eosinophils % 1.7 Basophils % 0.3 Nucleated Red Blood Cells % 0.0 Immature Granulocytes # 0.050 H Neutrophils # 5.3 Lymphocytes # 1.5 Monocytes # 0.7 Eosinophils # 0.1 Basophils # 0.0 Nucleated Red Blood Cells # 0.0 Sodium Level 138 Potassium Level 3.3 L Chloride Level 108 Carbon Dioxide Level 26 Anion Gap 4 L Blood Urea Nitrogen 5 L Creatinine 0.65 Est Glomerular Filtrat Rate mL/min > 60 Glucose Level 107 Calcium Level 7.0 L Medications Medication Current Medications IV Flush (NS 3 ml) 3 ml PER PROTOCOL IV ; Start 01/19/19 at 05:00 Ondansetron HCl (Zofran Inj) 4 mg Q6H PRN IV NAUSEA/VOMITING; Start 01/19/19 at 05:00 Acetaminophen/ Hydrocodone Bitart ([place] (5/325)) 1 tab Q6H PRN PO .MOD PAIN 4- 6 Last administered on 01/19/19 17:35; Admin Dose 1 TAB; Start 01/19/19 at 05:00 Morphine Sulfate (morphine) 2 mg Q4H PRN IV .SEVERE PAIN 7-10 Last administered on 01/22/19 05:42; Admin Dose 2 MG; Start 01/19/19 at 05:00 Famotidine (Pepcid Iv) 20 mg Q12 IV Last administered on 01/22/19 08:51; Admin Dose 20 MG; Start 01/19/19 at 09:00 Piperacillin Sod/ Tazobactam Sod 100 ml @ 200 mls/hr Q6 IVPB Last administered on 01/22/19at 11:43; Admin Dose 200 MLS/HR; Start 01/19/19 at 12:00 Acetaminophen (Tylenol Tab) 650 mg Q4H PRN PO MILD PAIN(1-3)OR ELEVATED TEMP Last administered on 01/19/19at 21:36; Admin Dose 650 MG; Start 01/19/19 at 17:30 IV Flush (NS 10 ml) 10 ml PRN PRN IV IV PROTOCOL; Start 01/20/19 at 17:00 MANDA LUNA NP Jan 22, 2019 16:13
[2019-01-22] MEDS: CEFEPIME 1GM/50 ML (PMX) 50 ML IVPB SCH (20:50)
[2019-01-22] MEDS: ACETAMINOPHEN 325 MG TAB PO PRN (23:58)
[2019-01-23] VITALS (57 sets, daily range): BP systolic 57–116; BP diastolic 28–83; PULSE 54–115; RESP 18–26
[2019-01-23] MEDS ORDERED: NEOSTIGMINE 3 MG/3 ML SYRINGE ONE ×2 (07:00→15:11)
[2019-01-23] MEDS ORDERED: SEVOFLURANE 15 MIN ONE (07:00)
[2019-01-23] MEDS ORDERED: GLYCOPYRROLATE 0.4 MG INJ ONE ×2 (07:00→15:11)
[2019-01-23] MEDS: FAMOTIDINE 20 MG INJ IV SCH ×2 (09:31→21:51)
[2019-01-23] MEDS: CEFEPIME 1GM/50 ML (PMX) 50 ML IVPB SCH ×2 (09:31→21:52)
[2019-01-23] MEDS: ACETAMINOPHEN 325 MG TAB PO PRN (09:31)
[2019-01-23] MEDS: POTASSIUM CHLORIDE 100 ML IVPB SCH ×2 (11:22→14:05)
--- NOTE | 2019-01-23 11:26 | PREAC ---
Date/Time of Note Date/Time of Note DATE: 01/23/19 TIME: 11:26 Anesthesia Eval and Record Evaluation Time Pre-Procedure Interview DATE: 01/23/19 TIME: 11:26 Age 38 Sex female NPO: 8 hrs Preoperative diagnosis Stent removal Planned procedure ERCP W/ OR W/O BRUSHING OR WASHING Past Medical History Past Medical History: None Surgery & Anesthesia Issues No known issue Meds Anticoagulation: No Beta Ernestina within 24 hr: No Reason Beta Ernestina not given: Pt. not on B-Ernestina Active Scripts Ondansetron (Ondansetron Odt) 4 Mg Tab.rapdis, 4 MG PO Q6H PRN for NAUSEA AND/OR VOMITING, #10 TAB Prov:ALLAN GONZALEZ PA-C 12/11/18 Ibuprofen* (Motrin*) 600 Mg Tab, 600 MG PO Q6, #30 TAB Prov:ALLAN GONZALEZ PA-C 12/11/18 Famotidine* (Pepcid*) 20 Mg Tablet, 20 MG PO BID for 4 Days, #30 TAB Prov:ALLAN GONZALEZ PA-C 12/11/18 Ciprofloxacin Hcl* (Ciprofloxacin Hcl*) 500 Mg Tablet, 500 MG PO BID for 7 Days, TAB Prov:ALLAN GONZALEZ PA-C 12/11/18 Current Medications IV Flush (NS 3 ml) 3 ml PER PROTOCOL IV ; Start 01/19/19 at 05:00 Ondansetron HCl (Zofran Inj) 4 mg Q6H PRN IV NAUSEA/VOMITING; Start 01/19/19 at 05:00 Acetaminophen/ Hydrocodone Bitart ([place] (5/325)) 1 tab Q6H PRN PO .MOD PAIN 4- 6 Last administered on 01/19/19at 17:35; Admin Dose 1 TAB; Start 01/19/19 at 05:00 Morphine Sulfate (morphine) 2 mg Q4H PRN IV .SEVERE PAIN 7-10 Last administered on 01/22/19at 05:42; Admin Dose 2 MG; Start 01/19/19 at 05:00 Famotidine (Pepcid Iv) 20 mg Q12 IV Last administered on 01/23/19at 09:31; Admin Dose 20 MG; Start 01/19/19 at 09:00 Acetaminophen (Tylenol Tab) 650 mg Q4H PRN PO MILD PAIN(1-3)OR ELEVATED TEMP Last administered on 01/23/19at 09:31; Admin Dose 650 MG; Start 01/19/19 at 17:30 IV Flush (NS 10 ml) 10 ml PRN PRN IV IV PROTOCOL; Start 01/20/19 at 17:00 Cefepime HCl 50 ml @ 100 mls/hr Q12 IVPB Last administered on 01/23/19at 09:31; Admin Dose 100 MLS/HR; Start 01/22/19 at 21:00 Potassium Chloride 100 ml @ 50 mls/hr Q2H IVPB Last administered on 01/23/19at 11:22; Admin Dose 50 MLS/HR; Start 01/23/19 at 10:30; Stop 01/23/19 at 14:29 Meds reviewed: Yes Allergies Coded Allergies: No Known Allergy (Unverified , 12/01/18) Allergies Reviewed: Yes Labs/Studies Labs Reviewed: Reviewed by anesthesiologist Result Diagram: 01/23/19 0657 01/23/19 0657 Laboratory Tests 01/23/19 06:57 test: Negative Pre-procedure Exam Last vitals Vital Signs Date Temp Pulse Resp B/P (MAP) Pulse Ox O2 O2 Flow FiO2 Time Delivery Rate 01/23/19 99.6 84 18 116/70 96 09:39 (85) 01/21/19 Nasal 2.0 21:45 Cannula Airway: Adequate mouth opening Mallampati: Mallampati II Teeth: Normal Lung: Normal Heart: Normal ASA Physical Status ASA physical status: 1 Emergency: None Planned Anesthetic General/MAC: ETT Pre-operative Attestations Prior to commencing anesthesia and surgery, the patient was re-evaluated, there was verification of: *The patient's identity *The results of appropriate recent lab work and preoperative vital signs *The above evaluation not changing prior to induction *Anesthetic plan, risk benefits, alternative and complications discussed with patient/family; questions answered; patient/family understands, accepts and wishes to proceed. PIYUSH FULTON Jan 23, 2019 11:26
[2019-01-23] MEDS ORDERED: IOHEXOL 300MG/ML 30 ML BTL ONE (14:42)
[2019-01-23] MEDS ORDERED: LIDOCAINE 2% (SDV) 5 ML INJ ONE (15:11)
[2019-01-23] MEDS ORDERED: PROPOFOL 20 ML ONE (15:11)
[2019-01-23] MEDS ORDERED: ROCURONIUM 50 MG INJ ONE (15:11)
[2019-01-23] MEDS ORDERED: SUCCINYLCHOLINE CHLORIDE 100 MG/5 ML SYG IV ONE (15:11)
--- NOTE | 2019-01-23 15:29 | PN ---
Date/Time of Note Date/Time of Note DATE: 01/23/19 TIME: 15:06 Assessment/Plan VTE Prophylaxis Risk score (from Nsg)>0 risk: 3 Pharmacological prophylaxis: NA/contraindicated Pharm contraindication: surgical contra Lines/Catheters Urinary Cath still in place: No Assessment/Plan Hospital Course 38-year-old female with recent history of gallstone pancreatitis status post CBD stenting and pancreatic duct stent placement on 12/03/2018, who came to the emergency room with chief complaint of abdominal pain and right-sided flank pain with CT showing 17 cm complex collection of gas and fluid expanding the right lobe of the liver consistent with an abscess, who was admitted to inpatient setting for treatment and evaluation. 1. Hepatic abscess -Status post CT-guided drainage, monitor output -Continue antibiotics including coverage for anaerobes. -Continue to NPO and IVFs -Gastroenterology and general surgery following 2. Septic shock secondary to hepatic abscess-resolved Sepsis criteria: Bands>10%,Tachypnea>20, HR>90. Infectious source: Intraabdominal source (liver abscess) 3. History of gallstone pancreatitis, S/P biliary stent and pancreatic duct stent placement on 12/03/2018 -Gastroenterology consult appreciated, patient will require stent removal today DVT prophylaxis -Bilateral SCDs DC planning -Continue antimicrobials -Stent removal today Result Diagram: 01/23/19 0657 01/23/19 0657 Results 24hrs Laboratory Tests Test 01/22/19 17:50 01/23/19 06:57 Urine Test NEGATIVE White Blood Count 6.0 # Red Blood Count 3.28 L Hemoglobin 8.4 L Hematocrit 26.9 L Mean Corpuscular Volume 82.0 Mean Corpuscular Hemoglobin 25.6 L Mean Corpuscular Hemoglobin Concent 31.2 L Red Cell Distribution Width 15.6 H Platelet Count 297 Mean Platelet Volume 9.5 Immature Granulocytes % 0.700 H Neutrophils % 62.2 Lymphocytes % 23.4 Monocytes % 12.2 H Eosinophils % 1.0 Basophils % 0.5 Nucleated Red Blood Cells % 0.0 Immature Granulocytes # 0.040 H Neutrophils # 3.7 Lymphocytes # 1.4 Monocytes # 0.7 Eosinophils # 0.1 Basophils # 0.0 Nucleated Red Blood Cells # 0.0 Sodium Level 139 Potassium Level 3.2 L Chloride Level 105 Carbon Dioxide Level 29 Anion Gap 5 Blood Urea Nitrogen 3 L Creatinine 0.52 Est Glomerular Filtrat Rate mL/min > 60 Glucose Level 103 Calcium Level 7.4 L Magnesium Level 1.7 Subjective 24 Hr Interval Summary Constitutional: no complaints Exam/Review of Systems Exam Vitals Vital Signs Date Temp Pulse Resp B/P (MAP) Pulse Ox O2 O2 Flow FiO2 Time Delivery Rate 01/23/19 97 12:01 01/23/19 98.4 18 107/67 97 11:40 (80) 01/21/19 Nasal 2.0 21:45 Cannula Intake and Output 01/22/19 01/22/19 01/23/19 1515:00 23:00 07:00 IntakeIntake Total 850 ml 200 ml OutputOutput Total 50 ml 50 ml BalanceBalance 800 ml 150 ml Constitutional: alert, oriented Respiratory: clear to auscultation Cardiovascular: regular rate and rhythm Gastrointestinal: soft; No distended Musculoskeletal: nl extremities to inspection Results Results 24hrs Laboratory Tests Test 01/22/19 17:50 01/23/19 06:57 Urine Test NEGATIVE White Blood Count 6.0 # Red Blood Count 3.28 L Hemoglobin 8.4 L Hematocrit 26.9 L Mean Corpuscular Volume 82.0 Mean Corpuscular Hemoglobin 25.6 L Mean Corpuscular Hemoglobin Concent 31.2 L Red Cell Distribution Width 15.6 H Platelet Count 297 Mean Platelet Volume 9.5 Immature Granulocytes % 0.700 H Neutrophils % 62.2 Lymphocytes % 23.4 Monocytes % 12.2 H Eosinophils % 1.0 Basophils % 0.5 Nucleated Red Blood Cells % 0.0 Immature Granulocytes # 0.040 H Neutrophils # 3.7 Lymphocytes # 1.4 Monocytes # 0.7 Eosinophils # 0.1 Basophils # 0.0 Nucleated Red Blood Cells # 0.0 Sodium Level 139 Potassium Level 3.2 L Chloride Level 105 Carbon Dioxide Level 29 Anion Gap 5 Blood Urea Nitrogen 3 L Creatinine 0.52 Est Glomerular Filtrat Rate mL/min > 60 Glucose Level 103 Calcium Level 7.4 L Magnesium Level 1.7 Medications Medication Current Medications IV Flush (NS 3 ml) 3 ml PER PROTOCOL IV ; Start 01/19/19 at 05:00 Ondansetron HCl (Zofran Inj) 4 mg Q6H PRN IV NAUSEA/VOMITING; Start 01/19/19 at 05:00 Acetaminophen/ Hydrocodone Bitart ([place] (5/325)) 1 tab Q6H PRN PO .MOD PAIN 4- 6 Last administered on 01/19/19 17:35; Admin Dose 1 TAB; Start 01/19/19 at 05:00 Morphine Sulfate (morphine) 2 mg Q4H PRN IV .SEVERE PAIN 7-10 Last administered on 01/22/19 05:42; Admin Dose 2 MG; Start 01/19/19 at 05:00 Famotidine (Pepcid Iv) 20 mg Q12 IV Last administered on 01/23/19 09:31; Admin Dose 20 MG; Start 01/19/19 at 09:00 Acetaminophen (Tylenol Tab) 650 mg Q4H PRN PO MILD PAIN(1-3)OR ELEVATED TEMP Last administered on 01/23/19 09:31; Admin Dose 650 MG; Start 01/19/19 at 17:30 IV Flush (NS 10 ml) 10 ml PRN PRN IV IV PROTOCOL; Start 01/20/19 at 17:00 Cefepime HCl 50 ml @ 100 mls/hr Q12 IVPB Last administered on 01/23/19 09:31; Admin Dose 100 MLS/HR; Start 01/22/19 at 21:00 TANISHA JACKSON Jan 23, 2019 15:26
[2019-01-23] MEDS ORDERED: INDOMETHACIN 50 MG SUPP PR ONE ×2 (15:30)
--- NOTE | 2019-01-23 15:30 | CONS ---
Assessment/Plan Assessment/Plan Hospital Course (Demo Recall) Still with low-grade fevers awake in no distress WBC 6 no shift BUN 3 creatinine 0.52 Microbiology: Fluid culture grew strep Indwelling's: Patient has right sided abdominal accordion drain Antimicrobials: Cefepime Physical examination: This is a morbidly obese well-developed middle-aged [place] woman who is alert in no distress. Head atraumatic normocephalic neck is supple chest rise symmetrical breath sounds diminished to bases. Heart: S1-S2 abdomen obese, soft bowel sounds present. Extremities without cyanosis Assessment: 1. Sepsis, present on admission 2. Large right lower lobe of the liver abscess, status post CT-guided drainage with catheter placement 3. Morbid obesity Plan: Stable, continue abx, GI rec-s, pending PICC. Pending ERCP for common bile duct stent removal Consultation Date/Type/Reason Admit Date/Time Jan 19, 2019 at 04:13 Initial Consult Date Type of Consult id Date/Time of Note DATE: 01/23/19 TIME: 15:28 Exam/Review of Systems Exam Vitals Vital Signs Date Temp Pulse Resp B/P (MAP) Pulse Ox O2 O2 Flow FiO2 Time Delivery Rate 01/23/19 97 12:01 01/23/19 98.4 18 107/67 97 11:40 (80) 01/21/19 Nasal 2.0 21:45 Cannula Intake and Output 01/22/19 01/22/19 01/23/19 1515:00 23:00 07:00 IntakeIntake Total 850 ml 200 ml OutputOutput Total 50 ml 50 ml BalanceBalance 800 ml 150 ml Results Result Diagram: 01/23/19 0657 01/23/19 0657 Results 24hrs Laboratory Tests Test 01/22/19 17:50 01/23/19 06:57 Urine Test NEGATIVE White Blood Count 6.0 # Red Blood Count 3.28 L Hemoglobin 8.4 L Hematocrit 26.9 L Mean Corpuscular Volume 82.0 Mean Corpuscular Hemoglobin 25.6 L Mean Corpuscular Hemoglobin Concent 31.2 L Red Cell Distribution Width 15.6 H Platelet Count 297 Mean Platelet Volume 9.5 Immature Granulocytes % 0.700 H Neutrophils % 62.2 Lymphocytes % 23.4 Monocytes % 12.2 H Eosinophils % 1.0 Basophils % 0.5 Nucleated Red Blood Cells % 0.0 Immature Granulocytes # 0.040 H Neutrophils # 3.7 Lymphocytes # 1.4 Monocytes # 0.7 Eosinophils # 0.1 Basophils # 0.0 Nucleated Red Blood Cells # 0.0 Sodium Level 139 Potassium Level 3.2 L Chloride Level 105 Carbon Dioxide Level 29 Anion Gap 5 Blood Urea Nitrogen 3 L Creatinine 0.52 Est Glomerular Filtrat Rate mL/min > 60 Glucose Level 103 Calcium Level 7.4 L Magnesium Level 1.7 Medications Medication Current Medications IV Flush (NS 3 ml) 3 ml PER PROTOCOL IV ; Start 01/19/19 at 05:00 Ondansetron HCl (Zofran Inj) 4 mg Q6H PRN IV NAUSEA/VOMITING; Start 01/19/19 at 05:00 Acetaminophen/ Hydrocodone Bitart ([place] (5/325)) 1 tab Q6H PRN PO .MOD PAIN 4- 6 Last administered on 01/19/19at 17:35; Admin Dose 1 TAB; Start 01/19/19 at 05:00 Morphine Sulfate (morphine) 2 mg Q4H PRN IV .SEVERE PAIN 7-10 Last administered on 01/22/19at 05:42; Admin Dose 2 MG; Start 01/19/19 at 05:00 Famotidine (Pepcid Iv) 20 mg Q12 IV Last administered on 01/23/19at 09:31; Admin Dose 20 MG; Start 01/19/19 at 09:00 Acetaminophen (Tylenol Tab) 650 mg Q4H PRN PO MILD PAIN(1-3)OR ELEVATED TEMP Last administered on 01/23/19at 09:31; Admin Dose 650 MG; Start 01/19/19 at 17:30 IV Flush (NS 10 ml) 10 ml PRN PRN IV IV PROTOCOL; Start 01/20/19 at 17:00 Cefepime HCl 50 ml @ 100 mls/hr Q12 IVPB Last administered on 01/23/19 09:31; Admin Dose 100 MLS/HR; Start 01/22/19 at 21:00 Indomethacin (Indocin Supp) 50 mg ONCE ONCE SC ; Start 01/23/19 at 15:30; Stop 01/23/19 at 15:31 Indomethacin (Indocin Supp) 50 mg ONCE ONCE SC ; Start 01/23/19 at 15:30; Stop 01/23/19 at 15:31 MANDA LUNA NP Jan 23, 2019 15:30
--- NOTE | 2019-01-23 18:19 | OPR ---
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
[2019-01-23] MEDS ORDERED: METOCLOPRAMIDE 10 MG INJ IV PRN (18:30)
[2019-01-23] MEDS ORDERED: EPHEDrine 25 MG/5 ML SYG IV PRN (18:30)
[2019-01-23] MEDS ORDERED: MEPERIDINE 25 MG INJ IV PRN (18:30)
[2019-01-23] MEDS ORDERED: HYDROmorphONE 1 MG/5 ML IV SYRINGE IV PRN ×3 (18:30)
[2019-01-23] MEDS ORDERED: FENTAnyl 50 MCG/ML VIAL IV PRN ×3 (18:30)
[2019-01-23] MEDS ORDERED: MIDAZOLAM 1 MG/ML 2 ML INJ IV PRN (18:30)
[2019-01-23] MEDS ORDERED: hydrALAzine 20 MG INJ IV PRN (18:30)
[2019-01-23] MEDS ORDERED: LABETALOL HCL 20MG INJ IV PRN (18:30)
[2019-01-23] MEDS ORDERED: DIPHENHYDRAMINE 50 MG INJ IV PRN (18:30)
[2019-01-23] MEDS ORDERED: ONDANSETRON 4 MG INJ IV PRN (18:30)
--- NOTE | 2019-01-23 19:09 | GILP ---
DATE OF PROCEDURE: PROCEDURES: ERCP and removal of existing pancreatic duct and CBD stent removal. POSTOPERATIVE DIAGNOSES: Upon injection into the biliary system, there is a leak noted from the righ t hepatic duct and also at this time it is known that patient has hepatic abscess. It is possible th at the right hepatic leak is leading to the right hepatic abscess and because of this, stent was plac ed into the right hepatic duct and one into the left hepatic duct. DESCRIPTION OF PROCEDURE: After informed written consent was obtained, the patient was intubated by anesthesiologist, Dr. Briseno. When the patient was in prone position, Olympus video side-viewing duode noscope was inserted into the oropharynx, then into the esophagus, subsequently into the stomach and then into the duodenum. Ampulla was located in normal location. There were 2 stents noted exiting t hrough the papillary opening. Both the stents were snared and along with the scope, both stents were removed. Subsequently, a stone extraction balloon was inserted into the common hepatic duct. Contr ast was injected. There seems to be evidence of contrast leaking from the right hepatic duct and it appears this is the one which is communicating into the right hepatic abscess, so I felt at this time to insert stent into the right hepatic duct and left hepatic duct. Now with the help of a guidewire , right hepatic duct was entered and also another guidewire was inserted into the left hepatic duct. A 10-Burkinan and 12 cm long [place] type of stent was placed into the right hepatic duct over the w bimal across the ampulla into the duodenum. At the same time, 7-Burkinan and 9 cm long [place]ek type of CBD stent was placed into the left hepatic duct across the ampulla into the duodenum. Photographs w ere obtained and it seems that good drainage of bile was coming through both stents. Also, it is to be noted that as soon as the CBD stents were removed in the beginning, there was pus draining out of the common bile duct into the duodenal lumen indicating there is a communication between right liver abscess and into the common bile duct. We will continue antibiotic therapy. Dictated By: DILCIA LYMAN MD NC/NTS Conf#: [id number] DID#: [id number] CC: CHING BERNABE MD; RIN REED MD; TANISHA JACKSON MD; FAISAL MCFARLAND MD;*End*
[2019-01-23] MEDS ORDERED: LACTATED RINGER'S 1,000 ML IV ONE (22:00)
[2019-01-24] VITALS (43 sets, daily range): BP systolic 94–114; BP diastolic 60–84; PULSE 62–95; RESP 17–34
[2019-01-24] MEDS: SOD CHLORIDE 0.9% 1,000 ML IV SCH ×4 (01:19→21:05)
[2019-01-24] MEDS ORDERED: SOD CHLORIDE 0.9% 1,000 ML IV SCH (01:30)
[2019-01-24] MEDS: morphine 2 MG INJ IV PRN ×2 (05:28→21:14)
--- NOTE | 2019-01-24 07:57 | PAC ---
Date/Time of Note Date/Time of Note DATE: 01/24/19 TIME: 07:56 Post-Anesthesia Notes Post-Anesthesia Note Last documented vital signs Vital Signs Date Temp Pulse Resp B/P (MAP) Pulse Ox O2 O2 Flow FiO2 Time Delivery Rate 01/24/19 2.0 06:05 01/24/19 72 26 105/69 100 Nasal 06:00 (81) Cannula 01/24/19 99.1 04:00 Activity: WNL Respiratory function: WNL Cardiovascular function: WNL Mental status: Baseline Pain reasonably controlled: Yes Hydration appropriate: Yes Nausea/Vomiting absent: Yes PHILIPPE LEWIS MD Jan 24, 2019 07:57
[2019-01-24] MEDS: FAMOTIDINE 20 MG INJ IV SCH ×2 (09:59→21:06)
[2019-01-24] MEDS: CEFEPIME 1GM/50 ML (PMX) 50 ML IVPB SCH (09:59)
[2019-01-24] MEDS: NACL 0.9% 3 ML SYG IV SCH (14:16)
[2019-01-24] MEDS ORDERED: POTASSIUM CHLORIDE (SR) 20 MEQ TAB PO STA (15:10)
--- NOTE | 2019-01-24 15:10 | PN ---
Date/Time of Note Date/Time of Note DATE: 01/24/19 TIME: 15:06 Assessment/Plan VTE Prophylaxis Risk score (from Nsg)>0 risk: 2 Pharmacological prophylaxis: NA/contraindicated Pharm contraindication: low risk/ambulating Lines/Catheters Urinary Cath still in place: No Assessment/Plan Hospital Course 38-year-old female with recent history of gallstone pancreatitis status post CBD stenting and pancreatic duct stent placement on 12/03/2018, who came to the emergency room with chief complaint of abdominal pain and right-sided flank pain with CT showing 17 cm complex collection of gas and fluid expanding the right lobe of the liver consistent with an abscess, who was admitted to inpatient setting for treatment and evaluation. 1. Hepatic abscess -Status post CT-guided drainage, monitor output -Continue antibiotics including coverage for anaerobes. -Continue to NPO and IVFs -Gastroenterology and general surgery following -Patient is status post ERCP with removal of pancreatic duct and CBD stents, patient also had CBD stent placement in to rt and lft hepatic ducts and anticipate hepatic abscess to improve as liver was draining into abscess 2. Septic shock secondary to hepatic abscess-resolved Sepsis criteria: Bands>10%,Tachypnea>20, HR>90. Infectious source: Intraabdominal source (liver abscess) 3. History of gallstone pancreatitis, S/P biliary stent and pancreatic duct stent placement on 12/03/2018 -Gastroenterology consult appreciated, stents are removed DVT prophylaxis -Bilateral SCDs DC planning -Continue antimicrobials and drainage, anticipate improvement in hepatic abscess as described above -Monitor over the weekend per GI Result Diagram: 01/23/19 2227 01/24/19 0400 Results 24hrs Laboratory Tests Test 01/23/19 22:27 01/24/19 04:00 White Blood Count 8.5 # Red Blood Count 3.12 L Hemoglobin 8.1 L Hematocrit 25.9 L Mean Corpuscular Volume 83.0 Mean Corpuscular Hemoglobin 26.0 L Mean Corpuscular Hemoglobin Concent 31.3 L Red Cell Distribution Width 15.3 H Platelet Count 282 Mean Platelet Volume 9.4 Immature Granulocytes % 0.800 H Neutrophils % 82.2 H Lymphocytes % 10.7 L Monocytes % 6.1 Eosinophils % 0.1 Basophils % 0.1 Nucleated Red Blood Cells % 0.0 Immature Granulocytes # 0.070 H Neutrophils # 7.0 Lymphocytes # 0.9 Monocytes # 0.5 Eosinophils # 0.0 Basophils # 0.0 Nucleated Red Blood Cells # 0.0 Sodium Level 139 Potassium Level 3.3 L Chloride Level 104 Carbon Dioxide Level 31 Anion Gap 4 L Blood Urea Nitrogen 3 L Creatinine 0.49 Est Glomerular Filtrat Rate mL/min > 60 Glucose Level 90 Calcium Level 7.4 L Magnesium Level 1.6 L Subjective 24 Hr Interval Summary Constitutional: no complaints Exam/Review of Systems Exam Vitals Vital Signs Date Temp Pulse Resp B/P (MAP) Pulse Ox O2 O2 Flow FiO2 Time Delivery Rate 01/24/19 72 27 110/80 92 Room Air 12:00 (90) 01/24/19 98.6 08:35 01/24/19 2.0 06:05 Intake and Output 01/23/19 01/23/19 01/24/19 1515:00 23:00 07:00 IntakeIntake Total 1050 ml 1200 ml OutputOutput Total 60 ml 0 ml BalanceBalance 990 ml 1200 ml Constitutional: alert, oriented Psych: no complaints, nl mood/affect Head: normocephalic, atraumatic Eyes: nl conjunctiva, EOMI, nl lids, nl sclera, PERRL ENMT: nl external ears & nose, nl lips & teeth, nl nasal mucosa & septum Neck: supple, non-tender Respiratory: clear to auscultation Cardiovascular: regular rate and rhythm Gastrointestinal: soft; No distended Musculoskeletal: nl extremities to inspection Extremities: normal pulses 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: 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 ENGINEER 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, nl mental status, nl speech, nl strength Skin: nl turgor; No rash or lesions Lymph: nl lymph nodes Results Results 24hrs Laboratory Tests Test 01/23/19 22:27 01/24/19 04:00 White Blood Count 8.5 # Red Blood Count 3.12 L Hemoglobin 8.1 L Hematocrit 25.9 L Mean Corpuscular Volume 83.0 Mean Corpuscular Hemoglobin 26.0 L Mean Corpuscular Hemoglobin Concent 31.3 L Red Cell Distribution Width 15.3 H Platelet Count 282 Mean Platelet Volume 9.4 Immature Granulocytes % 0.800 H Neutrophils % 82.2 H Lymphocytes % 10.7 L Monocytes % 6.1 Eosinophils % 0.1 Basophils % 0.1 Nucleated Red Blood Cells % 0.0 Immature Granulocytes # 0.070 H Neutrophils # 7.0 Lymphocytes # 0.9 Monocytes # 0.5 Eosinophils # 0.0 Basophils # 0.0 Nucleated Red Blood Cells # 0.0 Sodium Level 139 Potassium Level 3.3 L Chloride Level 104 Carbon Dioxide Level 31 Anion Gap 4 L Blood Urea Nitrogen 3 L Creatinine 0.49 Est Glomerular Filtrat Rate mL/min > 60 Glucose Level 90 Calcium Level 7.4 L Magnesium Level 1.6 L Medications Medication Current Medications IV Flush (NS 3 ml) 3 ml PER PROTOCOL IV Last administered on 01/24/19 14:16; Admin Dose 3 ML; Start 01/19/19 at 05:00 Ondansetron HCl (Zofran Inj) 4 mg Q6H PRN IV NAUSEA/VOMITING; Start 01/19/19 at 05:00 Acetaminophen/ Hydrocodone Bitart ([place] (5/325)) 1 tab Q6H PRN PO .MOD PAIN 4- 6 Last administered on 01/19/19 17:35; Admin Dose 1 TAB; Start 01/19/19 at 05:00 Morphine Sulfate (morphine) 2 mg Q4H PRN IV .SEVERE PAIN 7-10 Last administered on 01/24/19 05:28; Admin Dose 2 MG; Start 01/19/19 at 05:00 Famotidine (Pepcid Iv) 20 mg Q12 IV Last administered on 01/24/19 09:59; Admin Dose 20 MG; Start 01/19/19 at 09:00 Acetaminophen (Tylenol Tab) 650 mg Q4H PRN PO MILD PAIN(1-3)OR ELEVATED TEMP Last administered on 01/23/19 09:31; Admin Dose 650 MG; Start 01/19/19 at 17:30 IV Flush (NS 10 ml) 10 ml PRN PRN IV IV PROTOCOL Last administered on 01/24/19 14:16; Admin Dose 10 ML; Start 01/20/19 at 17:00 Cefepime HCl 50 ml @ 100 mls/hr Q12 IVPB Last administered on 01/24/19 09:59; Admin Dose 100 MLS/HR; Start 01/22/19 at 21:00 Sodium Chloride 1,000 ml @ 150 mls/hr Q6H40M IV Last administered on 01/24/19 14:15; Admin Dose 150 MLS/HR; Start 01/24/19 at 01:15 TANISHA JACKSON 7, 2019 15:10
[2019-01-24] MEDS ORDERED: MAGNESIUM OXIDE 400 MG TAB PO ONE (15:30)
--- NOTE | 2019-01-24 17:45 | CONS ---
DATE OF ADMISSION: 01/19/2019 DATE OF CONSULTATION: SUBJECTIVE: The patient at this time is feeling about the same. No abdominal pain, no nausea, no vo miting. She was admitted with liver abscess. Percutaneously, a drainage is being carried out, and t yolande she had ERCP. Leak of the right hepatic duct into the outside of the biliary system is noted in dicating that is probably contributing to the liver abscess. ____ the ERCP, stent was placed into th e right hepatic duct and also 1 into the left hepatic duct. Interesting enough, the drainage has bee n only 60 mL up to this morning, 7:00. Now since this morning, the bag shows maybe 20 mL less. PHYSICAL EXAMINATION: The patient appears stable and she seems to be not in pain. LABORATORY WORKUP: WBC count 8500, hemoglobin is 8.1. ____ alkaline phosphatase 168 as of 9. CLINICAL IMPRESSION: Hepatic abscess, etiology not known due to cholangitis and patient still has a gallbladder. Probably, cholecystitis is also contributing for cholangitis. May be she is a retrogra de. Drainage into the hepatic ductal system could have created the abscess, it is not very clear. PLAN: At this time, continue to drain the abscess percutaneously and obviously stent is in place in the right hepatic duct, which will help also to prevent leaking into the hepatic abscess and in other words, it will drain normally into the duodenum. Dictated By: DILCIA COLEY/MELISSA Conf#: [id number] DID#: [id number]
--- NOTE | 2019-01-24 18:08 | CONS ---
Assessment/Plan Assessment/Plan Hospital Course (Demo Recall) 1100 Patient is awake looks comfortable status post ERCP and removal of existing pa ncreatic and common bile duct stent, postoperatively had hypotension and currently in ICU, stable Microbiology: Fluid culture grew strep Indwelling's: Patient has right sided abdominal accordion drain Antimicrobials: Rocephin Physical examination: This is a morbidly obese well-developed middle-aged woman who is alert in no distress. Head atraumatic normocephalic neck is supple chest rise symmetrical breath sounds diminished to bases. Heart: S1- S2 abdomen obese, soft bowel sounds present. Extremities without cyanosis Assessment: 1. Sepsis, present on admission 2. Large right lower lobe of the liver abscess, status post CT-guided drainage with catheter placement 3. Morbid obesity Plan: Stable, continue abx, f/u GI rec-s Consultation Date/Type/Reason Admit Date/Time Jan 19, 2019 at 04:13 Initial Consult Date Type of Consult id Date/Time of Note DATE: 01/24/19 TIME: 18:08 Exam/Review of Systems Exam Vitals Vital Signs Date Temp Pulse Resp B/P (MAP) Pulse Ox O2 O2 Flow FiO2 Time Delivery Rate 01/24/19 98.7 82 18 111/78 95 15:18 (89) 01/24/19 Room Air 12:00 01/24/19 2.0 06:05 Intake and Output 01/23/19 01/23/19 01/24/19 1515:00 23:00 07:00 IntakeIntake Total 1050 ml 1200 ml OutputOutput Total 60 ml 0 ml BalanceBalance 990 ml 1200 ml Results Result Diagram: 01/23/19 2227 01/24/19 0400 Results 24hrs Laboratory Tests Test 01/23/19 22:27 01/24/19 04:00 White Blood Count 8.5 # Red Blood Count 3.12 L Hemoglobin 8.1 L Hematocrit 25.9 L Mean Corpuscular Volume 83.0 Mean Corpuscular Hemoglobin 26.0 L Mean Corpuscular Hemoglobin Concent 31.3 L Red Cell Distribution Width 15.3 H Platelet Count 282 Mean Platelet Volume 9.4 Immature Granulocytes % 0.800 H Neutrophils % 82.2 H Lymphocytes % 10.7 L Monocytes % 6.1 Eosinophils % 0.1 Basophils % 0.1 Nucleated Red Blood Cells % 0.0 Immature Granulocytes # 0.070 H Neutrophils # 7.0 Lymphocytes # 0.9 Monocytes # 0.5 Eosinophils # 0.0 Basophils # 0.0 Nucleated Red Blood Cells # 0.0 Sodium Level 139 Potassium Level 3.3 L Chloride Level 104 Carbon Dioxide Level 31 Anion Gap 4 L Blood Urea Nitrogen 3 L Creatinine 0.49 Est Glomerular Filtrat Rate mL/min > 60 Glucose Level 90 Calcium Level 7.4 L Magnesium Level 1.6 L Medications Medication Current Medications IV Flush (NS 3 ml) 3 ml PER PROTOCOL IV Last administered on 01/24/19 14:16; Admin Dose 3 ML; Start 01/19/19 at 05:00 Ondansetron HCl (Zofran Inj) 4 mg Q6H PRN IV NAUSEA/VOMITING; Start 01/19/19 at 05:00 Acetaminophen/ Hydrocodone Bitart ([place] (5/325)) 1 tab Q6H PRN PO .MOD PAIN 4- 6 Last administered on 01/19/19 17:35; Admin Dose 1 TAB; Start 01/19/19 at 05:00 Morphine Sulfate (morphine) 2 mg Q4H PRN IV .SEVERE PAIN 7-10 Last administered on 01/24/19 05:28; Admin Dose 2 MG; Start 01/19/19 at 05:00 Famotidine (Pepcid Iv) 20 mg Q12 IV Last administered on 01/24/19 09:59; Admin Dose 20 MG; Start 01/19/19 at 09:00 Acetaminophen (Tylenol Tab) 650 mg Q4H PRN PO MILD PAIN(1-3)OR ELEVATED TEMP Last administered on 01/23/19 09:31; Admin Dose 650 MG; Start 01/19/19 at 17:30 IV Flush (NS 10 ml) 10 ml PRN PRN IV IV PROTOCOL Last administered on 01/24/19 14:16; Admin Dose 10 ML; Start 01/20/19 at 17:00 Sodium Chloride 1,000 ml @ 150 mls/hr Q6H40M IV Last administered on 01/24/19 14:15; Admin Dose 150 MLS/HR; Start 01/24/19 at 01:15 Ceftriaxone Sodium 50 ml @ 100 mls/hr Q24H IVPB ; Start 01/24/19 at 21:00 MANDA LUNA NP Jan 24, 2019 18:08
[2019-01-24] MEDS: CEFTRIAXONE 1 GM/NS 50 ML IVPB SCH (21:05)
[2019-01-25 02:14] VITALS: BP 113/74; PULSE 98; RESP 16
[2019-01-25] MEDS: SOD CHLORIDE 0.9% 1,000 ML IV SCH ×3 (04:44→17:25)
[2019-01-25] MEDS: morphine 2 MG INJ IV PRN (05:36)
[2019-01-25 07:30] VITALS: BP 114/72; PULSE 91; RESP 20
[2019-01-25] MEDS: FAMOTIDINE 20 MG INJ IV SCH (08:31)
[2019-01-25 14:04] VITALS: BP 113/83; PULSE 91; RESP 20
--- NOTE | 2019-01-25 15:10 | CONS ---
Assessment/Plan Assessment/Plan Hospital Course (Demo Recall) ID PROGRESS NOTE CURRENT ABX: DAY # => Ceftriaxone 24H INTERVAL SUMMARY * Resting in bed, no fever today, Tmax yesterday 99.6, VSS, Accordion drain in place * POD2=> s/p 01/23/19 G.I. LAB PROCEDUREPROCEDURES: ERCP and removal of existing pancreatic duct and CBD stent removal. * POSTOPERATIVE DIAGNOSES: Upon injection into the biliary system, there is a leak noted from the right hepatic duct and also at this time it is known that patient has hepatic abscess. It is possible that the right hepatic leak is leading to the right hepatic abscess and because of this, stent was placed into the right hepatic duct and one into the left hepatic duct. * Indwelling's: Patient has right sided abdominal accordion drain MICRO/OTHER * 01/19/19 BCX (-) * 01/19/19 FLUID CX: BODY FLUID CULTURE Final Organism 1 STREP BETA HEMOLYTIC-GROUP F QUANTITY 2+ Organism 2 ALPHA HEMOLYTIC STREP SPP QUANTITY 1+ . VIRIDANS GROUP ALPHA HEMO M.I.C. RX --------- --- CEFOTAXIME 0.125 S PENICILLIN 0.016 S VANCOMYCIN 1 S STREP BETA ALPHA HEMO Zone Size RX Zone Size RX --------- --- --------- --- * CEFOTAXIME S * CLINDAMYCIN S I * ERYTHROMYCIN S I * PENICILLIN S * VANCOMYCIN S PHYSICAL EXAMINATION: GENERAL: VSS, NAD HEENT: AT, NC, anicteric, NECK: Supple, CHEST: Equal chest rise bilaterally, without dyspnea on observation HEART: Pulse RRR ABDOMEN: Accordion drain in place : deferred EXTREMITIES: Warm, dry SKIN: No rash, no diaphoresis ID ASSESSMENT 38 yo F admit with: 1. Sepsis, present on admission => RESOLVED 2. Large right lower lobe of the liver abscess, status post CT-guided drainage with catheter placement * 01/19/19 FLUID CX: BODY FLUID CULTURE Final Organism 1 STREP BETA HEMOLYTIC-GROUP F QUANTITY 2+ Organism 2 ALPHA HEMOLYTIC STREP SPP QUANTITY 1+ . VIRIDANS GROUP 3. POD2 -> s/p 01/23/19 ERCP and removal of existing pancreatic and common bile duct stent * POSTOPERATIVE DIAGNOSES: Upon injection into the biliary system, there is a leak noted from the right hepatic duct and also at this time it is known that patient has hepatic abscess. It is possible that the right hepatic leak is leading to the right hepatic abscess and because of this, stent was placed into the right hepatic duct and one into the left hepatic duct. 4. Overweight (-)MRSA Nares ABX ALLERGIES: None to ABX INVASIVES: PIV CURRENT ABX: DAY # > Ceftriaxone ID RECOMMENDATIONS/PLAN: 1. Continue ABX over the weekend Consultation Date/Type/Reason Admit Date/Time Jan 19, 2019 at 04:13 Initial Consult Date Date/Time of Note DATE: 01/25/19 TIME: 15:10 Exam/Review of Systems Exam Vitals Vital Signs Date Temp Pulse Resp B/P (MAP) Pulse Ox O2 O2 Flow FiO2 Time Delivery Rate 01/25/19 98.5 91 20 113/83 99 14:04 (93) 01/25/19 2.0 04:57 01/24/19 Room Air 12:00 Intake and Output 01/24/19 01/24/19 01/25/19 1515:00 23:00 07:00 IntakeIntake Total 1240 ml 1410 ml 1510 ml OutputOutput Total 20 ml 25 ml BalanceBalance 1240 ml 1390 ml 1485 ml Results Result Diagram: 01/25/19 0545 01/25/19 0545 Results 24hrs Laboratory Tests Test 01/25/19 05:45 White Blood Count 9.0 Red Blood Count 3.42 L Hemoglobin 8.8 L Hematocrit 28.0 L Mean Corpuscular Volume 81.9 L Mean Corpuscular Hemoglobin 25.7 L Mean Corpuscular Hemoglobin Concent 31.4 L Red Cell Distribution Width 15.7 H Platelet Count 324 Mean Platelet Volume 9.6 Immature Granulocytes % 0.600 H Neutrophils % 69.4 Lymphocytes % 19.6 Monocytes % 8.4 Eosinophils % 1.6 Basophils % 0.4 Nucleated Red Blood Cells % 0.0 Immature Granulocytes # 0.050 H Neutrophils # 6.2 Lymphocytes # 1.8 Monocytes # 0.8 Eosinophils # 0.1 Basophils # 0.0 Nucleated Red Blood Cells # 0.0 Sodium Level 137 Potassium Level 3.1 L Chloride Level 102 Carbon Dioxide Level 31 Anion Gap 4 L Blood Urea Nitrogen 2 L Creatinine 0.53 Est Glomerular Filtrat Rate mL/min > 60 Glucose Level 102 Calcium Level 7.3 L Magnesium Level 1.7 Medications Medication Current Medications IV Flush (NS 3 ml) 3 ml PER PROTOCOL IV Last administered on 01/24/19 14:16; Admin Dose 3 ML; Start 01/19/19 at 05:00 Ondansetron HCl (Zofran Inj) 4 mg Q6H PRN IV NAUSEA/VOMITING; Start 01/19/19 at 05:00 Acetaminophen/ Hydrocodone Bitart ([place] (5/325)) 1 tab Q6H PRN PO .MOD PAIN 4- 6 Last administered on 01/19/19 17:35; Admin Dose 1 TAB; Start 01/19/19 at 05:00 Morphine Sulfate (morphine) 2 mg Q4H PRN IV .SEVERE PAIN 7-10 Last administered on 01/25/19 05:36; Admin Dose 2 MG; Start 01/19/19 at 05:00 Famotidine (Pepcid Iv) 20 mg Q12 IV Last administered on 01/25/19 08:31; Admin Dose 20 MG; Start 01/19/19 at 09:00 Acetaminophen (Tylenol Tab) 650 mg Q4H PRN PO MILD PAIN(1-3)OR ELEVATED TEMP Last administered on 01/23/19 09:31; Admin Dose 650 MG; Start 01/19/19 at 17:30 IV Flush (NS 10 ml) 10 ml PRN PRN IV IV PROTOCOL Last administered on 01/25/19 08:31; Admin Dose 10 ML; Start 01/20/19 at 17:00 Sodium Chloride 1,000 ml @ 150 mls/hr Q6H40M IV Last administered on 01/25/19 04:44; Admin Dose 150 MLS/HR; Start 01/24/19 at 01:15 Ceftriaxone Sodium 50 ml @ 100 mls/hr Q24H IVPB Last administered on 01/24/19 21:05; Admin Dose 100 MLS/HR; Start 01/24/19 at 21:00 BILL ARNOLD NP Jan 25, 2019 15:10
--- NOTE | 2019-01-25 17:31 | PN ---
Date/Time of Note Date/Time of Note DATE: 01/25/19 TIME: 17:30 Assessment/Plan VTE Prophylaxis Risk score (from Ns)>0 risk: 0 SCD applied (from [facility] [place]): Yes Pharmacological prophylaxis: NA/contraindicated Pharm contraindication: surgical contra Lines/Catheters Urinary Cath still in place: No Assessment/Plan Hospital Course 38-year-old female with recent history of gallstone pancreatitis status post CBD stenting and pancreatic duct stent placement on 12/03/2018, who came to the emergency room with chief complaint of abdominal pain and right-sided flank pain with CT showing 17 cm complex collection of gas and fluid expanding the right lobe of the liver consistent with an abscess, who was admitted to inpatient setting for treatment and evaluation. 1. Hepatic abscess -Status post CT-guided drainage, monitor output -Continue antibiotics including coverage for anaerobes. -Continue to NPO and IVFs -Gastroenterology and general surgery following -Patient is status post ERCP with removal of pancreatic duct and CBD stents, patient also had CBD stent placement in to rt and lft hepatic ducts and anticipate hepatic abscess to improve as liver was draining into abscess 2. Septic shock secondary to hepatic abscess-resolved Sepsis criteria: Bands>10%,Tachypnea>20, HR>90. Infectious source: Intraabdominal source (liver abscess) 3. History of gallstone pancreatitis, S/P biliary stent and pancreatic duct stent placement on 12/03/2018 -Gastroenterology consult appreciated, stents are removed 4. Right-sided chest pain or shortness of breath -Follow-up on chest x-ray DVT prophylaxis -Bilateral SCDs DC planning -Continue antimicrobials and drainage, anticipate improvement in hepatic abscess as described above -Monitor over the weekend per GI Result Diagram: 01/25/19 0545 01/25/19 0545 Results 24hrs Laboratory Tests Test 01/25/19 05:45 White Blood Count 9.0 Red Blood Count 3.42 L Hemoglobin 8.8 L Hematocrit 28.0 L Mean Corpuscular Volume 81.9 L Mean Corpuscular Hemoglobin 25.7 L Mean Corpuscular Hemoglobin Concent 31.4 L Red Cell Distribution Width 15.7 H Platelet Count 324 Mean Platelet Volume 9.6 Immature Granulocytes % 0.600 H Neutrophils % 69.4 Lymphocytes % 19.6 Monocytes % 8.4 Eosinophils % 1.6 Basophils % 0.4 Nucleated Red Blood Cells % 0.0 Immature Granulocytes # 0.050 H Neutrophils # 6.2 Lymphocytes # 1.8 Monocytes # 0.8 Eosinophils # 0.1 Basophils # 0.0 Nucleated Red Blood Cells # 0.0 Sodium Level 137 Potassium Level 3.1 L Chloride Level 102 Carbon Dioxide Level 31 Anion Gap 4 L Blood Urea Nitrogen 2 L Creatinine 0.53 Est Glomerular Filtrat Rate mL/min > 60 Glucose Level 102 Calcium Level 7.3 L Magnesium Level 1.7 Subjective 24 Hr Interval Summary Respiratory: shortness of breath Cardiovascular: chest pain (Right side) Exam/Review of Systems Exam Vitals Vital Signs Date Temp Pulse Resp B/P (MAP) Pulse Ox O2 O2 Flow FiO2 Time Delivery Rate 01/25/19 98.5 91 20 113/83 99 14:04 (93) 01/25/19 2.0 04:57 01/24/19 Room Air 12:00 Intake and Output 01/24/19 01/24/19 01/25/19 1515:00 23:00 07:00 IntakeIntake Total 1240 ml 1410 ml 1510 ml OutputOutput Total 20 ml 25 ml BalanceBalance 1240 ml 1390 ml 1485 ml Constitutional: alert, oriented Respiratory: clear to auscultation Cardiovascular: regular rate and rhythm Gastrointestinal: soft; No distended Musculoskeletal: nl extremities to inspection Results Results 24hrs Laboratory Tests Test 01/25/19 05:45 White Blood Count 9.0 Red Blood Count 3.42 L Hemoglobin 8.8 L Hematocrit 28.0 L Mean Corpuscular Volume 81.9 L Mean Corpuscular Hemoglobin 25.7 L Mean Corpuscular Hemoglobin Concent 31.4 L Red Cell Distribution Width 15.7 H Platelet Count 324 Mean Platelet Volume 9.6 Immature Granulocytes % 0.600 H Neutrophils % 69.4 Lymphocytes % 19.6 Monocytes % 8.4 Eosinophils % 1.6 Basophils % 0.4 Nucleated Red Blood Cells % 0.0 Immature Granulocytes # 0.050 H Neutrophils # 6.2 Lymphocytes # 1.8 Monocytes # 0.8 Eosinophils # 0.1 Basophils # 0.0 Nucleated Red Blood Cells # 0.0 Sodium Level 137 Potassium Level 3.1 L Chloride Level 102 Carbon Dioxide Level 31 Anion Gap 4 L Blood Urea Nitrogen 2 L Creatinine 0.53 Est Glomerular Filtrat Rate mL/min > 60 Glucose Level 102 Calcium Level 7.3 L Magnesium Level 1.7 Medications Medication Current Medications IV Flush (NS 3 ml) 3 ml PER PROTOCOL IV Last administered on 01/24/19 14:16; Admin Dose 3 ML; Start 01/19/19 at 05:00 Ondansetron HCl (Zofran Inj) 4 mg Q6H PRN IV NAUSEA/VOMITING; Start 01/19/19 at 05:00 Acetaminophen/ Hydrocodone Bitart ([place] (5/325)) 1 tab Q6H PRN PO .MOD PAIN 4- 6 Last administered on 01/19/19 17:35; Admin Dose 1 TAB; Start 01/19/19 at 05:00 Morphine Sulfate (morphine) 2 mg Q4H PRN IV .SEVERE PAIN 7-10 Last administered on 01/25/19 05:36; Admin Dose 2 MG; Start 01/19/19 at 05:00 Acetaminophen (Tylenol Tab) 650 mg Q4H PRN PO MILD PAIN(1-3)OR ELEVATED TEMP Last administered on 01/23/19 09:31; Admin Dose 650 MG; Start 01/19/19 at 17:30 IV Flush (NS 10 ml) 10 ml PRN PRN IV IV PROTOCOL Last administered on 01/25/19 08:31; Admin Dose 10 ML; Start 01/20/19 at 17:00 Sodium Chloride 1,000 ml @ 150 mls/hr Q6H40M IV Last administered on 01/25/19 17:25; Admin Dose 150 MLS/HR; Start 01/24/19 at 01:15 Ceftriaxone Sodium 50 ml @ 100 mls/hr Q24H IVPB Last administered on 01/24/19 21:05; Admin Dose 100 MLS/HR; Start 01/24/19 at 21:00 Famotidine (Pepcid) 20 mg Q12 PO ; Start 01/25/19 at 21:00 TANISHA JACKSON Jan 25, 2019 17:31
[2019-01-25 20:08] VITALS: BP 118/76; PULSE 89; RESP 18
[2019-01-25] MEDS: FAMOTIDINE 20 MG TAB PO SCH (20:30)
[2019-01-25] MEDS: CEFTRIAXONE 1 GM/NS 50 ML IVPB SCH (20:31)
[2019-01-25] MEDS: POTASSIUM CHLORIDE 40 MEQ in SOD CHLORIDE 0.9% 1,000 ML IV SCH (20:31)
[2019-01-26 01:51] VITALS: BP 114/65; PULSE 90; RESP 20
[2019-01-26] MEDS: POTASSIUM CHLORIDE 40 MEQ in SOD CHLORIDE 0.9% 1,000 ML IV SCH (05:00)
[2019-01-26 08:27] VITALS: BP 114/75; PULSE 96; RESP 18
[2019-01-26] MEDS: FAMOTIDINE 20 MG TAB PO SCH ×2 (09:06→20:25)
[2019-01-26] MEDS: ACETAMINOPHEN 325 MG TAB PO PRN (10:53)
[2019-01-26] MEDS ORDERED: MAGNESIUM SULFATE 2 GM/50 ML 50 ML IVPB ONE (11:00)
--- NOTE | 2019-01-26 11:22 | CONS ---
Assessment/Plan Assessment/Plan Hospital Course (Demo Recall) ID PROGRESS NOTE CURRENT ABX: DAY # => Ceftriaxone 24H INTERVAL SUMMARY * Awake, doing well, ambulates to [facility] w/assist, accordion drain in place w/scant purulent drainage * POD3=> s/p 01/23/19 ERCP and removal of existing pancreatic duct and CBD stent removal. * POSTOPERATIVE DIAGNOSES: Upon injection into the biliary system, there is a leak noted from the right hepatic duct and also at this time it is known that patient has hepatic abscess. It is possible that the right hepatic leak is leading to the right hepatic abscess and because of this, stent was placed into the right hepatic duct and one into the left hepatic duct. * Indwelling's: Patient has right sided abdominal accordion drain MICRO/OTHER * 01/19/19 BCX (-) * 01/19/19 FLUID CX: BODY FLUID CULTURE Final Organism 1 STREP BETA HEMOLYTIC-GROUP F QUANTITY 2+ Organism 2 ALPHA HEMOLYTIC STREP SPP QUANTITY 1+ . VIRIDANS GROUP ALPHA HEMO M.I.C. RX --------- --- CEFOTAXIME 0.125 S PENICILLIN 0.016 S VANCOMYCIN 1 S STREP BETA ALPHA HEMO Zone Size RX Zone Size RX --------- --- --------- --- * CEFOTAXIME S * CLINDAMYCIN S I * ERYTHROMYCIN S I * PENICILLIN S * VANCOMYCIN S PHYSICAL EXAMINATION: GENERAL: VSS, NAD HEENT: AT, NC, anicteric, NECK: Supple, CHEST: Equal chest rise bilaterally, without dyspnea on observation HEART: Pulse RRR ABDOMEN: Accordion drain in place : deferred EXTREMITIES: Warm, dry SKIN: No rash, no diaphoresis ID ASSESSMENT 38 yo F admit with: 1. Sepsis, present on admission => RESOLVED 2. Large right lower lobe of the liver abscess, status post CT-guided drainage with catheter placement * 01/19/19 FLUID CX: BODY FLUID CULTURE Final Organism 1 STREP BETA HEMOLYTIC-GROUP F QUANTITY 2+ Organism 2 ALPHA HEMOLYTIC STREP SPP QUANTITY 1+ . VIRIDANS GROUP 3. POD2 -> s/p 01/23/19 ERCP and removal of existing pancreatic and common bile duct stent * POSTOPERATIVE DIAGNOSES: Upon injection into the biliary system, there is a leak noted from the right hepatic duct and also at this time it is known that patient has hepatic abscess. It is possible that the right hepatic leak is leading to the right hepatic abscess and because of this, stent was placed into the right hepatic duct and one into the left hepatic duct. 4. Overweight (-)MRSA Nares ABX ALLERGIES: None to ABX INVASIVES: PIV CURRENT ABX: DAY # > Ceftriaxone ID RECOMMENDATIONS/PLAN: 1. Continue ABX over the weekend -- Anticipate DC home on Augmenting 875mg po Q12 H x 10 days Consultation Date/Type/Reason Admit Date/Time Jan 19, 2019 at 04:13 Initial Consult Date Date/Time of Note DATE: 01/26/19 TIME: 11:20 Exam/Review of Systems Exam Vitals Vital Signs Date Temp Pulse Resp B/P (MAP) Pulse Ox O2 O2 Flow FiO2 Time Delivery Rate 01/26/19 99.0 96 18 114/75 95 08:27 (88) 01/26/19 2.0 06:38 01/24/19 Room Air 12:00 Intake and Output 01/25/19 01/25/19 01/26/19 1515:00 23:00 07:00 IntakeIntake Total 1200 ml 1890 ml 1040 ml OutputOutput Total 10 ml 25 ml BalanceBalance 1200 ml 1880 ml 1015 ml Results Result Diagram: 01/26/19 0452 01/26/19 0726 Results 24hrs Laboratory Tests Test 01/26/19 04:52 01/26/19 07:26 White Blood Count 7.0 # Red Blood Count 3.00 L Hemoglobin 7.8 L Hematocrit 24.8 L Mean Corpuscular Volume 82.7 Mean Corpuscular Hemoglobin 26.0 L Mean Corpuscular Hemoglobin Concent 31.5 L Red Cell Distribution Width 15.7 H Platelet Count 284 Mean Platelet Volume 9.5 Immature Granulocytes % 0.400 Neutrophils % 69.3 Lymphocytes % 20.3 Monocytes % 8.5 Eosinophils % 1.1 Basophils % 0.4 Nucleated Red Blood Cells % 0.0 Immature Granulocytes # 0.030 Neutrophils # 4.8 Lymphocytes # 1.4 Monocytes # 0.6 Eosinophils # 0.1 Basophils # 0.0 Nucleated Red Blood Cells # 0.0 Sodium Level 139 137 Potassium Level 7.3 #*H 3.5 # Chloride Level 109 101 Carbon Dioxide Level 30 32 H Anion Gap 0 L 4 L Blood Urea Nitrogen < 2 L < 2 L Creatinine 0.42 L 0.49 Est Glomerular Filtrat Rate mL/min > 60 > 60 Glucose Level 86 98 Calcium Level 6.7 L 7.6 L Phosphorus Level 2.5 Magnesium Level 1.6 L Medications Medication Current Medications IV Flush (NS 3 ml) 3 ml PER PROTOCOL IV Last administered on 01/24/19 14:16; Admin Dose 3 ML; Start 01/19/19 at 05:00 Ondansetron HCl (Zofran Inj) 4 mg Q6H PRN IV NAUSEA/VOMITING; Start 01/19/19 at 05:00 Acetaminophen/ Hydrocodone Bitart ([place] (5/325)) 1 tab Q6H PRN PO .MOD PAIN 4- 6 Last administered on 01/19/19 17:35; Admin Dose 1 TAB; Start 01/19/19 at 05:00 Morphine Sulfate (morphine) 2 mg Q4H PRN IV .SEVERE PAIN 7-10 Last administered on 01/25/19 05:36; Admin Dose 2 MG; Start 01/19/19 at 05:00 Acetaminophen (Tylenol Tab) 650 mg Q4H PRN PO MILD PAIN(1-3)OR ELEVATED TEMP Last administered on 01/26/19 10:53; Admin Dose 650 MG; Start 01/19/19 at 17:30 IV Flush (NS 10 ml) 10 ml PRN PRN IV IV PROTOCOL Last administered on 01/25/19 08:31; Admin Dose 10 ML; Start 01/20/19 at 17:00 Ceftriaxone Sodium 50 ml @ 100 mls/hr Q24H IVPB Last administered on 01/25/19 20:31; Admin Dose 100 MLS/HR; Start 01/24/19 at 21:00 Famotidine (Pepcid) 20 mg Q12 PO Last administered on 01/26/19 09:06; Admin Dose 20 MG; Start 01/25/19 at 21:00 Magnesium Sulfate 50 ml @ 25 mls/hr ONCE ONCE IVPB Last administered on 6/9/19at 10:56; Admin Dose 25 MLS/HR; Start 01/26/19 at 11:00; Stop 01/26/19 at 12:59 BILL ARNOLD NP Jan 26, 2019 11:22
[2019-01-26] MEDS ORDERED: POTASSIUM CHLORIDE (SR) 20 MEQ TAB PO STA (12:02)
--- NOTE | 2019-01-26 12:05 | PN ---
Date/Time of Note Date/Time of Note DATE: 01/26/19 TIME: 11:59 Assessment/Plan VTE Prophylaxis Risk score (from Nsg)>0 risk: 2 Pharmacological prophylaxis: NA/contraindicated Pharm contraindication: low risk/ambulating Lines/Catheters Urinary Cath still in place: No Assessment/Plan Hospital Course 38-year-old female with recent history of gallstone pancreatitis status post CBD stenting and pancreatic duct stent placement on 12/03/2018, who came to the emergency room with chief complaint of abdominal pain and right-sided flank pain with CT showing 17 cm complex collection of gas and fluid expanding the right lobe of the liver consistent with an abscess, who was admitted to inpatient setting for treatment and evaluation. 1. Hepatic abscess -Status post CT-guided drainage, monitor output -Continue antibiotics including coverage for anaerobes. -Continue to NPO and IVFs -Gastroenterology and general surgery following -Patient is status post ERCP with removal of pancreatic duct and CBD stents, patient also had CBD stent placement in to rt and lft hepatic ducts and anticipate hepatic abscess to improve as liver was draining into abscess -GI recommendations is to continue drainage over the weekend 2. Septic shock secondary to hepatic abscess-resolved Sepsis criteria: Bands>10%,Tachypnea>20, HR>90. Infectious source: Intraabdominal source (liver abscess) 3. History of gallstone pancreatitis, S/P biliary stent and pancreatic duct stent placement on 12/03/2018 -Gastroenterology consult appreciated, stents are removed 4. Right-sided chest pain or shortness of breath-improved -Chest x-ray does show small to moderate sized pleural effusion -Patient with likely fluid overload from the significant amount of IV fluids that she has received -Lasix IV x1 -Follow-up on chest x-ray in a.m. DVT prophylaxis -Bilateral SCDs DC planning -Continue antimicrobials and drainage over the weekend per GI, anticipate improvement in hepatic abscess as described above, follow-up chest x-ray in a.m. Result Diagram: 01/26/19 0452 01/26/19 0726 Results 24hrs Laboratory Tests Test 01/26/19 04:52 01/26/19 07:26 White Blood Count 7.0 # Red Blood Count 3.00 L Hemoglobin 7.8 L Hematocrit 24.8 L Mean Corpuscular Volume 82.7 Mean Corpuscular Hemoglobin 26.0 L Mean Corpuscular Hemoglobin Concent 31.5 L Red Cell Distribution Width 15.7 H Platelet Count 284 Mean Platelet Volume 9.5 Immature Granulocytes % 0.400 Neutrophils % 69.3 Lymphocytes % 20.3 Monocytes % 8.5 Eosinophils % 1.1 Basophils % 0.4 Nucleated Red Blood Cells % 0.0 Immature Granulocytes # 0.030 Neutrophils # 4.8 Lymphocytes # 1.4 Monocytes # 0.6 Eosinophils # 0.1 Basophils # 0.0 Nucleated Red Blood Cells # 0.0 Sodium Level 139 137 Potassium Level 7.3 #*H 3.5 # Chloride Level 109 101 Carbon Dioxide Level 30 32 H Anion Gap 0 L 4 L Blood Urea Nitrogen < 2 L < 2 L Creatinine 0.42 L 0.49 Est Glomerular Filtrat Rate mL/min > 60 > 60 Glucose Level 86 98 Calcium Level 6.7 L 7.6 L Phosphorus Level 2.5 Magnesium Level 1.6 L Subjective 24 Hr Interval Summary Constitutional: no complaints Exam/Review of Systems Exam Vitals Vital Signs Date Temp Pulse Resp B/P (MAP) Pulse Ox O2 O2 Flow FiO2 Time Delivery Rate 01/26/19 99.0 96 18 114/75 95 08:27 (88) 01/26/19 2.0 06:38 01/24/19 Room Air 12:00 Intake and Output 01/25/19 01/25/19 01/26/19 1515:00 23:00 07:00 IntakeIntake Total 1200 ml 1890 ml 1040 ml OutputOutput Total 10 ml 25 ml BalanceBalance 1200 ml 1880 ml 1015 ml Constitutional: alert, oriented Respiratory: clear to auscultation Cardiovascular: regular rate and rhythm Gastrointestinal: soft; No distended Musculoskeletal: nl extremities to inspection Results Results 24hrs Laboratory Tests Test 01/26/19 04:52 01/26/19 07:26 White Blood Count 7.0 # Red Blood Count 3.00 L Hemoglobin 7.8 L Hematocrit 24.8 L Mean Corpuscular Volume 82.7 Mean Corpuscular Hemoglobin 26.0 L Mean Corpuscular Hemoglobin Concent 31.5 L Red Cell Distribution Width 15.7 H Platelet Count 284 Mean Platelet Volume 9.5 Immature Granulocytes % 0.400 Neutrophils % 69.3 Lymphocytes % 20.3 Monocytes % 8.5 Eosinophils % 1.1 Basophils % 0.4 Nucleated Red Blood Cells % 0.0 Immature Granulocytes # 0.030 Neutrophils # 4.8 Lymphocytes # 1.4 Monocytes # 0.6 Eosinophils # 0.1 Basophils # 0.0 Nucleated Red Blood Cells # 0.0 Sodium Level 139 137 Potassium Level 7.3 #*H 3.5 # Chloride Level 109 101 Carbon Dioxide Level 30 32 H Anion Gap 0 L 4 L Blood Urea Nitrogen < 2 L < 2 L Creatinine 0.42 L 0.49 Est Glomerular Filtrat Rate mL/min > 60 > 60 Glucose Level 86 98 Calcium Level 6.7 L 7.6 L Phosphorus Level 2.5 Magnesium Level 1.6 L Medications Medication Current Medications IV Flush (NS 3 ml) 3 ml PER PROTOCOL IV Last administered on 01/24/19 14:16; Admin Dose 3 ML; Start 01/19/19 at 05:00 Ondansetron HCl (Zofran Inj) 4 mg Q6H PRN IV NAUSEA/VOMITING; Start 01/19/19 at 05:00 Acetaminophen/ Hydrocodone Bitart ([place] (5/325)) 1 tab Q6H PRN PO .MOD PAIN 4- 6 Last administered on 01/19/19 17:35; Admin Dose 1 TAB; Start 01/19/19 at 05:00 Morphine Sulfate (morphine) 2 mg Q4H PRN IV .SEVERE PAIN 7-10 Last administered on 01/25/19 05:36; Admin Dose 2 MG; Start 01/19/19 at 05:00 Acetaminophen (Tylenol Tab) 650 mg Q4H PRN PO MILD PAIN(1-3)OR ELEVATED TEMP Last administered on 01/26/19 10:53; Admin Dose 650 MG; Start 01/19/19 at 17:30 IV Flush (NS 10 ml) 10 ml PRN PRN IV IV PROTOCOL Last administered on 01/25/19 08:31; Admin Dose 10 ML; Start 01/20/19 at 17:00 Ceftriaxone Sodium 50 ml @ 100 mls/hr Q24H IVPB Last administered on 01/25/19 20:31; Admin Dose 100 MLS/HR; Start 01/24/19 at 21:00 Famotidine (Pepcid) 20 mg Q12 PO Last administered on 01/26/19 09:06; Admin Dose 20 MG; Start 01/25/19 at 21:00 Magnesium Sulfate 50 ml @ 25 mls/hr ONCE ONCE IVPB Last administered on 01/26/19at 10:56; Admin Dose 25 MLS/HR; Start 01/26/19 at 11:00; Stop 01/26/19 at 12 :59 TANISHA JACKSON Jan 26, 2019 12:05
[2019-01-26] MEDS ORDERED: FUROSEMIDE 20 MG INJ IV ONE (12:30)
[2019-01-26] MEDS ORDERED: IOHEXOL 14.3 MG(I)/ML (ADULT) BTL PO ONE (14:00)
[2019-01-26 14:58] VITALS: BP 105/33; PULSE 77; RESP 18
[2019-01-26 19:35] VITALS: BP 110/69; PULSE 90; RESP 18
[2019-01-26] MEDS: CEFTRIAXONE 1 GM/NS 50 ML IVPB SCH (20:25)
[2019-01-27 01:46] VITALS: BP 116/72; PULSE 94; RESP 18
[2019-01-27] MEDS: morphine 2 MG INJ IV PRN (02:10)
--- NOTE | 2019-01-27 07:35 | PN ---
DATE: 01/26/2019 SUBJECTIVE: The patient is alert. The patient was admitted with the liver abscess. The percutaneou s transhepatic drainage catheter was put into the liver abscess and a large amount of pus was drained . Subsequently, she also underwent placement of ERCP and ERCP showed evidence of leakage of the bile th rough the right hepatic duct into the liver abscess. Now in the past 3 days, the drainage has been trending downwards from percutaneous biliary drainage c atheter, 35 mL a day before yesterday, a day before that was 60 mL, indicating trending downwards of the quantity of pus coming from the percutaneous biliary drainage into the hepatic abscess. PHYSICAL EXAMINATION: GENERAL: On examination, the patient is alert. VITAL SIGNS: Afebrile. CARDIOVASCULAR: Normal heart sounds. RESPIRATORY: Normal breath sounds. ABDOMEN: Showed evidence of percutaneous drainage catheter into liver abscess. LABORATORY WORKUP: WBC count 7000, hemoglobin 7.8, potassium is 3.5. CLINICAL IMPRESSION: The patient appears to be doing well. The percutaneous transhepatic drainage c atheter into the liver abscess until the quantity is getting less and less. PLAN: We will repeat a CAT scan of the abdomen and if the CAT scan of the abdomen shows a significan t improvement in the liver abscess, then the percutaneous drainage catheter can be removed. Dictated By: DLICIA COLEY/MELISSA Conf#: [id number] DID#: [id number] CC: FAISAL MCFARLAND MD;*EndCC*
[2019-01-27 07:41] VITALS: BP 108/70; PULSE 85; RESP 20
[2019-01-27] MEDS ORDERED: SOD CHLORIDE 0.9% 100 ML ONE (08:11)
[2019-01-27] MEDS ORDERED: IOHEXOL 300MG/ML 150 ML BTL ONE (08:11)
[2019-01-27] MEDS: FAMOTIDINE 20 MG TAB PO SCH ×2 (09:20→21:08)
--- NOTE | 2019-01-27 10:11 | PN ---
Date/Time of Note Date/Time of Note DATE: 01/27/19 TIME: 10:10 Assessment/Plan VTE Prophylaxis Risk score (from Ns)>0 risk: 4 SCD applied (from Nsg): Yes Pharmacological prophylaxis: NA/contraindicated Pharm contraindication: low risk/ambulating Lines/Catheters [facility] Central line still needed: Yes Urinary Cath still in place: No Assessment/Plan Hospital Course SUBJECTIVE: Denies any abdominal pain. Denies any dyspnea. OBJECTIVE: Physical Exam General: 38 year-old female lying in bed in no apparent distress. HEENT: Normocephalic, atraumatic. Eyes: Anicteric sclerae, conjunctivae clear. ENT: Nasal septum midline, oral mucosa is dry. Neck supple, no JVD noticed. Respiratory: Bilaterally clear breath sounds. No use of accessory muscles of respiration. No adventitious breath sounds. Cardiovascular: S1, S2 heard. No murmurs or gallops. Abdomen: Soft and nondistended. Right upper quadrant drain that is draining. Genitourinary: Deferred. Extremities: No cyanosis, no clubbing, no edema. Peripheral pulses palpable. Neurologic: Cranial nerves II through XII grossly intact. The patient is awake, alert, and oriented. Skin: Normal skin turgor. No skin rashes. Labs & Vitals per chart ASSESSMENT & PLAN 38-year-old female with recent history of gallstone pancreatitis status post CBD stenting and pancreatic duct stent placement on 12/03/2018, who came to the emergency room with chief complaint of abdominal pain and right-sided flank pain with CT showing 17 cm complex collection of gas and fluid expanding the right lobe of the liver consistent with an abscess, who was admitted to inpatient setting for treatment and evaluation. 1. Hepatic abscess. Status post CT-guided drainage on 01/19/2019 Fluid culture showing alpha hemolytic Streptococcus and beta-hemolytic Streptococcus. On antimicrobials as per ID. 2. Status post sepsis with bandemia, tachypnea, and tachycardia secondary to underlying liver abscess. Sepsis criteria: Bands>10%,Tachypnea>20, HR>90. Infectious source: Intraabdominal source (liver abscess) Continue management as per #1. 3. History of gallstone pancreatitis, S/P biliary stent and pancreatic duct stefanie nt placement on 12/03/2018. Status post ERCP and removal of existing pancreatic duct and CBD stent with placement of a stent to the right hepatic duct and to the left hepatic duct on 01/23/2019. 4. Fluids, electrolytes, and nutrition. Full liquid diet. 5. Normocytic anemia. Etiology could be multifactorial. Status post 1 unit of PRBC transfusion. 6. Right sided pleural effusion. Improving. Status post diuresis. Continue diuresis as clinically indicated. 7. DVT prophylaxis Bilateral SCDs 8. Plan. Continue antimicrobials as per ID. Continue pain control. Repeat CT of the abdomen was ordered. If the repeat CT shows minimal amount of fluid in the liver bed, will discontinue the percutaneous drain and will discharge patient home on oral antibiotics. The patient was seen in collaboration with Dr. Negor. Result Diagram: 01/27/1953601/27/19536 Results 24hrs Laboratory Tests Test 01/27/19 05:37 White Blood Count 8.2 Red Blood Count 3.38 L Hemoglobin 8.9 L Hematocrit 28.4 L Mean Corpuscular Volume 84.0 Mean Corpuscular Hemoglobin 26.3 L Mean Corpuscular Hemoglobin Concent 31.3 L Red Cell Distribution Width 15.9 H Platelet Count 338 Mean Platelet Volume 9.3 Immature Granulocytes % 0.500 H Neutrophils % 69.8 Lymphocytes % 19.7 Monocytes % 7.8 Eosinophils % 1.6 Basophils % 0.6 Nucleated Red Blood Cells % 0.0 Immature Granulocytes # 0.040 H Neutrophils # 5.8 Lymphocytes # 1.6 Monocytes # 0.6 Eosinophils # 0.1 Basophils # 0.1 Nucleated Red Blood Cells # 0.0 Sodium Level 138 Potassium Level 3.7 Chloride Level 101 Carbon Dioxide Level 32 H Anion Gap 5 Blood Urea Nitrogen 3 L Creatinine 0.46 Est Glomerular Filtrat Rate mL/min > 60 Glucose Level 90 Calcium Level 7.6 L Magnesium Level 2.2 Exam/Review of Systems Exam Vitals Vital Signs Date Temp Pulse Resp B/P (MAP) Pulse Ox O2 O2 Flow FiO2 Time Delivery Rate 01/27/19 98.8 85 20 108/70 94 07:41 (83) 01/26/19 2.0 23:26 01/24/19 Room Air 12:00 Intake and Output 01/26/19 01/26/19 01/27/19 1515:00 23:00 07:00 IntakeIntake Total 630 ml 290 ml OutputOutput Total 15 ml 10 ml BalanceBalance 630 ml 275 ml -10 ml Results Results 24hrs Laboratory Tests Test 01/27/19 05:37 White Blood Count 8.2 Red Blood Count 3.38 L Hemoglobin 8.9 L Hematocrit 28.4 L Mean Corpuscular Volume 84.0 Mean Corpuscular Hemoglobin 26.3 L Mean Corpuscular Hemoglobin Concent 31.3 L Red Cell Distribution Width 15.9 H Platelet Count 338 Mean Platelet Volume 9.3 Immature Granulocytes % 0.500 H Neutrophils % 69.8 Lymphocytes % 19.7 Monocytes % 7.8 Eosinophils % 1.6 Basophils % 0.6 Nucleated Red Blood Cells % 0.0 Immature Granulocytes # 0.040 H Neutrophils # 5.8 Lymphocytes # 1.6 Monocytes # 0.6 Eosinophils # 0.1 Basophils # 0.1 Nucleated Red Blood Cells # 0.0 Sodium Level 138 Potassium Level 3.7 Chloride Level 101 Carbon Dioxide Level 32 H Anion Gap 5 Blood Urea Nitrogen 3 L Creatinine 0.46 Est Glomerular Filtrat Rate mL/min > 60 Glucose Level 90 Calcium Level 7.6 L Magnesium Level 2.2 Medications Medication Current Medications IV Flush (NS 3 ml) 3 ml PER PROTOCOL IV Last administered on 01/24/19 14:16; Admin Dose 3 ML; Start 01/19/19 at 05:00 Ondansetron HCl (Zofran Inj) 4 mg Q6H PRN IV NAUSEA/VOMITING; Start 01/19/19 at 05:00 Acetaminophen/ Hydrocodone Bitart ([place] (5/325)) 1 tab Q6H PRN PO .MOD PAIN 4- 6 Last administered on 01/19/19at 17:35; Admin Dose 1 TAB; Start 01/19/19 at 05:00 Morphine Sulfate (morphine) 2 mg Q4H PRN IV .SEVERE PAIN 7-10 Last administered on 01/27/19at 02:10; Admin Dose 2 MG; Start 01/19/19 at 05:00 Acetaminophen (Tylenol Tab) 650 mg Q4H PRN PO MILD PAIN(1-3)OR ELEVATED TEMP Last administered on 01/26/19at 10:53; Admin Dose 650 MG; Start 01/19/19 at 17:30 IV Flush (NS 10 ml) 10 ml PRN PRN IV IV PROTOCOL Last administered on 01/25/19 08:31; Admin Dose 10 ML; Start 01/20/19 at 17:00 Ceftriaxone Sodium 50 ml @ 100 mls/hr Q24H IVPB Last administered on 01/26/19at 20:25; Admin Dose 100 MLS/HR; Start 01/24/19 at 21:00 Famotidine (Pepcid) 20 mg Q12 PO Last administered on 01/27/19at 09:20; Admin Dose 20 MG; Start 01/25/19 at 21:00 SE RENE NP Jan 27, 2019 10:11
[2019-01-27] MEDS: ACETAMINOPHEN 325 MG TAB PO PRN (12:23)
[2019-01-27 13:40] VITALS: BP 103/69; PULSE 83; RESP 20
--- NOTE | 2019-01-27 13:44 | CONS ---
Assessment/Plan Assessment/Plan Hospital Course (Demo Recall) No acute events patient is sleeping sitting up in a chair no fevers overnight CT of the abdomen revealed percutaneous drainage catheter in place within the posterior aspect of the liver with collapse of the abscess cavity residual fluid is seen within cavity, trace amount. Mild edema seen within immediate surrounding hepatic parenchyma. Cholelithiasis with gallbladder distention: See cream enhancement and loculation compatible with an abnormal inflamed/infected gallbladder. A large stone is seen within the expected location of the gallbladder neck/cystic duct. Internal biliary stent in place with minimal mild dilatation of the right intrahepatic ducts Microbiology: Fluid culture grew strep Indwelling's: Patient has right sided abdominal accordion drain Antimicrobials: Rocephin Physical examination: This is a morbidly obese well-developed middle-aged woman who is alert in no distress. Head atraumatic normocephalic neck is supple chest rise symmetrical breath sounds diminished to bases. Heart: S1- S2 abdomen obese, soft bowel sounds present. Extremities without cyanosis Assessment: 1. Sepsis, present on admission 2. Large right lower lobe of the liver abscess, status post CT-guided drainage with catheter placement 3. Morbid obesity 4. Acute cholecystitis per CT of the abdomen 5. Status post ERCP and removal of existing pancreatic and common bile duct stent, postoperatively had hypotension and currently in ICU, stable Plan: Stable, continue abx, f/u GI rec-s Consultation Date/Type/Reason Admit Date/Time Jan 19, 2019 at 04:13 Initial Consult Date Type of Consult id Date/Time of Note DATE: 01/27/19 TIME: 13:42 Exam/Review of Systems Exam Vitals Vital Signs Date Temp Pulse Resp B/P (MAP) Pulse Ox O2 O2 Flow FiO2 Time Delivery Rate 01/27/19 98.8 85 20 108/70 94 07:41 (83) 01/26/19 2.0 23:26 01/24/19 Room Air 12:00 Intake and Output 01/26/19 01/26/19 01/27/19 1515:00 23:00 07:00 IntakeIntake Total 630 ml 290 ml OutputOutput Total 15 ml 10 ml BalanceBalance 630 ml 275 ml -10 ml Results Result Diagram: 01/27/19 0537 01/27/19 0537 Results 24hrs Laboratory Tests Test 01/27/19 05:37 White Blood Count 8.2 Red Blood Count 3.38 L Hemoglobin 8.9 L Hematocrit 28.4 L Mean Corpuscular Volume 84.0 Mean Corpuscular Hemoglobin 26.3 L Mean Corpuscular Hemoglobin Concent 31.3 L Red Cell Distribution Width 15.9 H Platelet Count 338 Mean Platelet Volume 9.3 Immature Granulocytes % 0.500 H Neutrophils % 69.8 Lymphocytes % 19.7 Monocytes % 7.8 Eosinophils % 1.6 Basophils % 0.6 Nucleated Red Blood Cells % 0.0 Immature Granulocytes # 0.040 H Neutrophils # 5.8 Lymphocytes # 1.6 Monocytes # 0.6 Eosinophils # 0.1 Basophils # 0.1 Nucleated Red Blood Cells # 0.0 Sodium Level 138 Potassium Level 3.7 Chloride Level 101 Carbon Dioxide Level 32 H Anion Gap 5 Blood Urea Nitrogen 3 L Creatinine 0.46 Est Glomerular Filtrat Rate mL/min > 60 Glucose Level 90 Calcium Level 7.6 L Magnesium Level 2.2 Medications Medication Current Medications IV Flush (NS 3 ml) 3 ml PER PROTOCOL IV Last administered on 01/24/19 14:16; Admin Dose 3 ML; Start 01/19/19 at 05:00 Ondansetron HCl (Zofran Inj) 4 mg Q6H PRN IV NAUSEA/VOMITING; Start 01/19/19 at 05:00 Acetaminophen/ Hydrocodone Bitart ([place] (5/325)) 1 tab Q6H PRN PO .MOD PAIN 4- 6 Last administered on 01/19/19 17:35; Admin Dose 1 TAB; Start 01/19/19 at 05:00 Morphine Sulfate (morphine) 2 mg Q4H PRN IV .SEVERE PAIN 7-10 Last administered on 01/27/19 02:10; Admin Dose 2 MG; Start 01/19/19 at 05:00 Acetaminophen (Tylenol Tab) 650 mg Q4H PRN PO MILD PAIN(1-3)OR ELEVATED TEMP Last administered on 01/27/19 12:23; Admin Dose 650 MG; Start 01/19/19 at 17:30 IV Flush (NS 10 ml) 10 ml PRN PRN IV IV PROTOCOL Last administered on 01/25/19 08:31; Admin Dose 10 ML; Start 01/20/19 at 17:00 Ceftriaxone Sodium 50 ml @ 100 mls/hr Q24H IVPB Last administered on 6/9/19at 20:25; Admin Dose 100 MLS/HR; Start 01/24/19 at 21:00 Famotidine (Pepcid) 20 mg Q12 PO Last administered on 01/27/19at 09:20; Admin Dose 20 MG; Start 01/25/19 at 21:00 MANDA LUNA NP Jan 27, 2019 13:44
[2019-01-27 19:54] VITALS: BP 117/76; PULSE 81; RESP 16
[2019-01-27] MEDS: CEFTRIAXONE 1 GM/NS 50 ML IVPB SCH (21:09)
[2019-01-28 01:21] VITALS: BP 113/82; PULSE 83; RESP 18
[2019-01-28 07:42] VITALS: BP 116/72; PULSE 83; RESP 20
[2019-01-28] MEDS: FAMOTIDINE 20 MG TAB PO SCH ×2 (08:38→21:09)
--- NOTE | 2019-01-28 10:23 | PN ---
Date/Time of Note Date/Time of Note DATE: 01/28/19 TIME: 10:21 Assessment/Plan VTE Prophylaxis Risk score (from Ns)>0 risk: 2 SCD applied (from Ns): No SCD contraindicated: other Pharmacological prophylaxis: NA/contraindicated Pharm contraindication: low risk/ambulating Lines/Catheters IV [facility]ter Type (from [facility]): PICC Line Central line still needed: Yes Urinary Cath still in place: No Assessment/Plan Hospital Course SUBJECTIVE: Denies any abdominal pain. Denies any dyspnea. OBJECTIVE: Physical Exam General: 38 year-old female lying in bed in no apparent distress. HEENT: Normocephalic, atraumatic. Eyes: Anicteric sclerae, conjunctivae clear. ENT: Nasal septum midline, oral mucosa is dry. Neck supple, no JVD noticed. Respiratory: Bilaterally clear breath sounds. No use of accessory muscles of respiration. No adventitious breath sounds. Cardiovascular: S1, S2 heard. No murmurs or gallops. Abdomen: Soft and nondistended. Right upper quadrant drain that is draining thick secretions. Genitourinary: Deferred. Extremities: No cyanosis, no clubbing, no edema. Peripheral pulses palpable. Neurologic: Cranial nerves II through XII grossly intact. The patient is awake, alert, and oriented. Skin: Normal skin turgor. No skin rashes. Labs & Vitals per chart ASSESSMENT & PLAN 38-year-old female with recent history of gallstone pancreatitis status post CBD stenting and pancreatic duct stent placement on 12/03/2018, who came to the emergency room with chief complaint of abdominal pain and right-sided flank pain with CT showing 17 cm complex collection of gas and fluid expanding the right lobe of the liver consistent with an abscess, who was admitted to inpatient setting for treatment and evaluation. 1. Hepatic abscess. Status post CT-guided drainage on 01/19/2019 Fluid culture showing alpha hemolytic Streptococcus and beta-hemolytic Streptococcus. On antimicrobials as per ID. 2. Status post sepsis with bandemia, tachypnea, and tachycardia secondary to underlying liver abscess. Sepsis criteria: Bands>10%,Tachypnea>20, HR>90. Infectious source: Intraabdominal source (liver abscess) Continue management as per #1. 3. History of gallstone pancreatitis, S/P biliary stent and pancreatic duct stent placement on 12/03/2018. Status post ERCP and removal of existing pancreatic duct and CBD stent with placement of a stent to the right hepatic duct and to the left hepatic duct on 01/23/2019. 4. Fluids, electrolytes, and nutrition. Full liquid diet. 5. Normocytic anemia. Etiology could be multifactorial. Status post 1 unit of PRBC transfusion. 6. Right sided pleural effusion. Improving. Status post diuresis. Continue diuresis as clinically indicated. 7. DVT prophylaxis Bilateral SCDs 8. Plan. Continue antimicrobials as per ID. Continue pain control. Will defer discontinuing the drain to gastroenterology. DC home once the drain is discontinued. The patient was seen in collaboration with Dr. Negro. Result Diagram: 01/28/1942601/28/19426 Results 24hrs Laboratory Tests Test 01/28/19 04:27 White Blood Count 8.3 Red Blood Count 3.57 L Hemoglobin 9.2 L Hematocrit 30.0 L Mean Corpuscular Volume 84.0 Mean Corpuscular Hemoglobin 25.8 L Mean Corpuscular Hemoglobin Concent 30.7 L Red Cell Distribution Width 16.5 H Platelet Count 360 Mean Platelet Volume 9.5 Immature Granulocytes % 0.500 H Neutrophils % 71.2 Lymphocytes % 19.1 Monocytes % 7.2 Eosinophils % 1.6 Basophils % 0.4 Nucleated Red Blood Cells % 0.0 Immature Granulocytes # 0.040 H Neutrophils # 6.0 Lymphocytes # 1.6 Monocytes # 0.6 Eosinophils # 0.1 Basophils # 0.0 Nucleated Red Blood Cells # 0.0 Sodium Level 137 Potassium Level 3.6 Chloride Level 99 Carbon Dioxide Level 30 Anion Gap 8 Blood Urea Nitrogen 3 L Creatinine 0.55 Est Glomerular Filtrat Rate mL/min > 60 Glucose Level 77 Calcium Level 7.9 L Phosphorus Level 3.7 Magnesium Level 2.1 Total Bilirubin 0.5 Direct Bilirubin 0.00 Indirect Bilirubin 0.5 Aspartate Amino Transf (AST/SGOT) 26 Alanine Aminotransferase (ALT/SGPT) 20 Alkaline Phosphatase 252 H Total Protein 6.2 Albumin 2.5 L Globulin 3.70 H Albumin/Globulin Ratio 0.67 Exam/Review of Systems Exam Vitals Vital Signs Date Temp Pulse Resp B/P (MAP) Pulse Ox O2 O2 Flow FiO2 Time Delivery Rate 01/28/19 98.8 83 20 116/72 93 07:42 (87) 01/26/19 2.0 23:26 01/24/19 Room Air 12:00 Intake and Output 01/27/19 01/27/19 01/28/19 1515:00 23:00 07:00 IntakeIntake Total 1040 ml 530 ml OutputOutput Total 5 ml 20 ml BalanceBalance 1040 ml 525 ml -20 ml Results Results 24hrs Laboratory Tests Test 01/28/19 04:27 White Blood Count 8.3 Red Blood Count 3.57 L Hemoglobin 9.2 L Hematocrit 30.0 L Mean Corpuscular Volume 84.0 Mean Corpuscular Hemoglobin 25.8 L Mean Corpuscular Hemoglobin Concent 30.7 L Red Cell Distribution Width 16.5 H Platelet Count 360 Mean Platelet Volume 9.5 Immature Granulocytes % 0.500 H Neutrophils % 71.2 Lymphocytes % 19.1 Monocytes % 7.2 Eosinophils % 1.6 Basophils % 0.4 Nucleated Red Blood Cells % 0.0 Immature Granulocytes # 0.040 H Neutrophils # 6.0 Lymphocytes # 1.6 Monocytes # 0.6 Eosinophils # 0.1 Basophils # 0.0 Nucleated Red Blood Cells # 0.0 Sodium Level 137 Potassium Level 3.6 Chloride Level 99 Carbon Dioxide Level 30 Anion Gap 8 Blood Urea Nitrogen 3 L Creatinine 0.55 Est Glomerular Filtrat Rate mL/min > 60 Glucose Level 77 Calcium Level 7.9 L Phosphorus Level 3.7 Magnesium Level 2.1 Total Bilirubin 0.5 Direct Bilirubin 0.00 Indirect Bilirubin 0.5 Aspartate Amino Transf (AST/SGOT) 26 Alanine Aminotransferase (ALT/SGPT) 20 Alkaline Phosphatase 252 H Total Protein 6.2 Albumin 2.5 L Globulin 3.70 H Albumin/Globulin Ratio 0.67 Medications Medication Current Medications IV Flush (NS 3 ml) 3 ml PER PROTOCOL IV Last administered on 01/24/19at 14:16; Admin Dose 3 ML; Start 01/19/19 at 05:00 Ondansetron HCl (Zofran Inj) 4 mg Q6H PRN IV NAUSEA/VOMITING; Start 01/19/19 at 05:00 Acetaminophen/ Hydrocodone Bitart ([place] (5/325)) 1 tab Q6H PRN PO .MOD PAIN 4- 6 Last administered on 01/19/19at 17:35; Admin Dose 1 TAB; Start 01/19/19 at 05:00 Morphine Sulfate (morphine) 2 mg Q4H PRN IV .SEVERE PAIN 7-10 Last administered on 01/27/19 02:10; Admin Dose 2 MG; Start 01/19/19 at 05:00 Acetaminophen (Tylenol Tab) 650 mg Q4H PRN PO MILD PAIN(1-3)OR ELEVATED TEMP Last administered on 01/27/19 12:23; Admin Dose 650 MG; Start 01/19/19 at 17:30 IV Flush (NS 10 ml) 10 ml PRN PRN IV IV PROTOCOL Last administered on 01/25/19 08:31; Admin Dose 10 ML; Start 01/20/19 at 17:00 Ceftriaxone Sodium 50 ml @ 100 mls/hr Q24H IVPB Last administered on 01/27/19 21:09; Admin Dose 100 MLS/HR; Start 01/24/19 at 21:00 Famotidine (Pepcid) 20 mg Q12 PO Last administered on 01/28/19 08:38; Admin Dose 20 MG; Start 01/25/19 at 21:00 SE RENE NP Jan 28, 2019 10:23
--- NOTE | 2019-01-28 11:28 | CONS ---
Assessment/Plan Assessment/Plan Hospital Course (Demo Recall) No acute events Microbiology: Fluid culture grew strep Indwelling's: Patient has right sided abdominal accordion drain Antimicrobials: Rocephin Physical examination: This is a morbidly obese well-developed middle-aged woman who is alert in no distress. Head atraumatic normocephalic neck is supple chest rise symmetrical breath sounds diminished to bases. Heart: S1- S2 abdomen obese, soft bowel sounds present. Extremities without cyanosis Assessment: 1. Sepsis, present on admission 2. Large right lower lobe of the liver abscess, status post CT-guided drainage with catheter placement 3. Morbid obesity 4. Acute cholecystitis per CT of the abdomen 5. Status post ERCP and removal of existing pancreatic and common bile duct stent, postoperatively had hypotension and currently in ICU, stable Plan: Stable, ok dc on oral Augmentin for 7 more days when cleared by GI Consultation Date/Type/Reason Admit Date/Time Jan 19, 2019 at 04:13 Initial Consult Date Type of Consult id Date/Time of Note DATE: 01/28/19 TIME: 11:27 Exam/Review of Systems Exam Vitals Vital Signs Date Temp Pulse Resp B/P (MAP) Pulse Ox O2 O2 Flow FiO2 Time Delivery Rate 01/28/19 98.8 83 20 116/72 93 07:42 (87) 01/26/19 2.0 23:26 01/24/19 Room Air 12:00 Intake and Output 01/27/19 01/27/19 01/28/19 1515:00 23:00 07:00 IntakeIntake Total 1040 ml 530 ml OutputOutput Total 5 ml 20 ml BalanceBalance 1040 ml 525 ml -20 ml Results Result Diagram: 01/28/19 0427 01/28/19 0427 Results 24hrs Laboratory Tests Test 01/28/19 04:27 White Blood Count 8.3 Red Blood Count 3.57 L Hemoglobin 9.2 L Hematocrit 30.0 L Mean Corpuscular Volume 84.0 Mean Corpuscular Hemoglobin 25.8 L Mean Corpuscular Hemoglobin Concent 30.7 L Red Cell Distribution Width 16.5 H Platelet Count 360 Mean Platelet Volume 9.5 Immature Granulocytes % 0.500 H Neutrophils % 71.2 Lymphocytes % 19.1 Monocytes % 7.2 Eosinophils % 1.6 Basophils % 0.4 Nucleated Red Blood Cells % 0.0 Immature Granulocytes # 0.040 H Neutrophils # 6.0 Lymphocytes # 1.6 Monocytes # 0.6 Eosinophils # 0.1 Basophils # 0.0 Nucleated Red Blood Cells # 0.0 Sodium Level 137 Potassium Level 3.6 Chloride Level 99 Carbon Dioxide Level 30 Anion Gap 8 Blood Urea Nitrogen 3 L Creatinine 0.55 Est Glomerular Filtrat Rate mL/min > 60 Glucose Level 77 Calcium Level 7.9 L Phosphorus Level 3.7 Magnesium Level 2.1 Total Bilirubin 0.5 Direct Bilirubin 0.00 Indirect Bilirubin 0.5 Aspartate Amino Transf (AST/SGOT) 26 Alanine Aminotransferase (ALT/SGPT) 20 Alkaline Phosphatase 252 H Total Protein 6.2 Albumin 2.5 L Globulin 3.70 H Albumin/Globulin Ratio 0.67 Medications Medication Current Medications IV Flush (NS 3 ml) 3 ml PER PROTOCOL IV Last administered on 01/24/19 14:16; Admin Dose 3 ML; Start 01/19/19 at 05:00 Ondansetron HCl (Zofran Inj) 4 mg Q6H PRN IV NAUSEA/VOMITING; Start 01/19/19 at 05:00 Acetaminophen/ Hydrocodone Bitart ([place] (5/325)) 1 tab Q6H PRN PO .MOD PAIN 4- 6 Last administered on 01/19/19 17:35; Admin Dose 1 TAB; Start 01/19/19 at 05:00 Morphine Sulfate (morphine) 2 mg Q4H PRN IV .SEVERE PAIN 7-10 Last administered on 01/27/19 02:10; Admin Dose 2 MG; Start 01/19/19 at 05:00 Acetaminophen (Tylenol Tab) 650 mg Q4H PRN PO MILD PAIN(1-3)OR ELEVATED TEMP Last administered on 01/27/19 12:23; Admin Dose 650 MG; Start 01/19/19 at 17:30 IV Flush (NS 10 ml) 10 ml PRN PRN IV IV PROTOCOL Last administered on 01/25/19 08:31; Admin Dose 10 ML; Start 01/20/19 at 17:00 Ceftriaxone Sodium 50 ml @ 100 mls/hr Q24H IVPB Last administered on 01/27/19 21:09; Admin Dose 100 MLS/HR; Start 01/24/19 at 21:00 Famotidine (Pepcid) 20 mg Q12 PO Last administered on 6/11/19at 08:38; Admin Dose 20 MG; Start 01/25/19 at 21:00 MANDA LUNA NP Jan 28, 2019 11:28
[2019-01-28 14:38] VITALS: BP 106/73; PULSE 97; RESP 20
[2019-01-28 20:04] VITALS: BP 103/59; PULSE 99; RESP 18
[2019-01-28] MEDS: CEFTRIAXONE 1 GM/NS 50 ML IVPB SCH (21:09)
[2019-01-28] MEDS: NACL 0.9% 3 ML SYG IV SCH (21:13)
[2019-01-29 01:20] VITALS: BP 108/69; PULSE 85; RESP 18
--- NOTE | 2019-01-29 06:54 | PN ---
DATE: 01/28/2019 SUBJECTIVE: The patient has no significant complaints. PHYSICAL EXAMINATION: The abdomen is soft. She has got a drainage tube coming from the liver abscess drainage. Still today, she has about 40 mL of pus came out. IMAGING STUDY: CAT scan of the abdomen shows evidence of collapse of the abscess cavity. Trace resi dual fluid is seen within the cavity. Mild edema is seen within the immediate surrounding hepatic pa renchyma. Gallstones are noted with gallbladder distention. Internal biliary stent is noted. CLINICAL IMPRESSION: The patient still persists to have some drainage from the abscess cavity and we will discuss with the radiologist and see if we can remove the drainage catheter. Dictated By: DILCIA LYMAN MD NC/NTS Conf#: [id number] DID#: [id number] CC: FAISAL MCFARLAND MD;*EndCC*
[2019-01-29 07:40] VITALS: BP 106/68; PULSE 78; RESP 16
[2019-01-29] MEDS: FAMOTIDINE 20 MG TAB PO SCH ×2 (09:40→20:18)
--- NOTE | 2019-01-29 11:21 | PN ---
Date/Time of Note Date/Time of Note DATE: 01/29/19 TIME: 11:20 Assessment/Plan VTE Prophylaxis Risk score (from Ns)>0 risk: 2 SCD applied (from Ns): Yes Pharmacological prophylaxis: NA/contraindicated Pharm contraindication: low risk/ambulating Lines/Catheters IV Catheter Type (from Nrsg): PICC Line Central line still needed: Yes Urinary Cath still in place: No Assessment/Plan Hospital Course SUBJECTIVE: Denies any abdominal pain. Denies any dyspnea. OBJECTIVE: Physical Exam General: 38 year-old female lying in bed in no apparent distress. HEENT: Normocephalic, atraumatic. Eyes: Anicteric sclerae, conjunctivae clear. ENT: Nasal septum midline, oral mucosa is dry. Neck supple, no JVD noticed. Respiratory: Bilaterally clear breath sounds. No use of accessory muscles of respiration. No adventitious breath sounds. Cardiovascular: S1, S2 heard. No murmurs or gallops. Abdomen: Soft and nondistended. Right upper quadrant drain that is draining thick secretions. Genitourinary: Deferred. Extremities: No cyanosis, no clubbing, no edema. Peripheral pulses palpable. Neurologic: Cranial nerves II through XII grossly intact. The patient is awake, alert, and oriented. Skin: Normal skin turgor. No skin rashes. Labs & Vitals per chart ASSESSMENT & PLAN 38-year-old female with recent history of gallstone pancreatitis status post CBD stenting and pancreatic duct stent placement on 12/03/2018, who came to the emergency room with chief complaint of abdominal pain and right-sided flank pain with CT showing 17 cm complex collection of gas and fluid expanding the right lobe of the liver consistent with an abscess, who was admitted to inpatient setting for treatment and evaluation. 1. Hepatic abscess. Status post CT-guided drainage on 01/19/2019 Fluid culture showing alpha hemolytic Streptococcus and beta-hemolytic Streptococcus. On antimicrobials as per ID. 2. Status post sepsis with bandemia, tachypnea, and tachycardia secondary to underlying liver abscess. Sepsis criteria: Bands>10%,Tachypnea>20, HR>90. Infectious source: Intraabdominal source (liver abscess) Continue management as per #1. 3. History of gallstone pancreatitis, S/P biliary stent and pancreatic duct stent placement on 12/03/2018. Status post ERCP and removal of existing pancreatic duct and CBD stent with placement of a stent to the right hepatic duct and to the left hepatic duct on . 4. Fluids, electrolytes, and nutrition. Regular diet. 5. Normocytic anemia. Etiology could be multifactorial. Status post 1 unit of PRBC transfusion. 6. Right sided pleural effusion. Improving. Status post diuresis. Continue diuresis as clinically indicated. 7. DVT prophylaxis Bilateral SCDs 8. Plan. Continue antimicrobials as per ID. Continue pain control. Will defer discontinuing the drain to gastroenterology. DC home once the drain is discontinued. The patient was seen in collaboration with Dr. Negro. Result Diagram: 01/29/1951801/29/19518 Results 24hrs Laboratory Tests Test 01/29/19 05:19 White Blood Count 8.2 Red Blood Count 3.69 L Hemoglobin 9.6 L Hematocrit 31.1 L Mean Corpuscular Volume 84.3 Mean Corpuscular Hemoglobin 26.0 L Mean Corpuscular Hemoglobin Concent 30.9 L Red Cell Distribution Width 16.9 H Platelet Count 376 Mean Platelet Volume 9.5 Immature Granulocytes % 0.400 Neutrophils % 66.9 Lymphocytes % 22.2 Monocytes % 8.3 Eosinophils % 1.6 Basophils % 0.6 Nucleated Red Blood Cells % 0.0 Immature Granulocytes # 0.030 Neutrophils # 5.5 Lymphocytes # 1.8 Monocytes # 0.7 Eosinophils # 0.1 Basophils # 0.1 Nucleated Red Blood Cells # 0.0 Sodium Level 140 Potassium Level 4.2 Chloride Level 101 Carbon Dioxide Level 33 H Anion Gap 6 Blood Urea Nitrogen 5 L Creatinine 0.56 Est Glomerular Filtrat Rate mL/min > 60 Glucose Level 101 Calcium Level 7.9 L Phosphorus Level 3.7 Magnesium Level 2.2 Exam/Review of Systems Exam Vitals Vital Signs Date Temp Pulse Resp B/P (MAP) Pulse Ox O2 O2 Flow FiO2 Time Delivery Rate 01/29/19 98.3 78 16 106/68 94 07:40 (81) 01/26/19 2.0 23:26 Intake and Output 01/28/19 01/28/19 01/29/19 1414:59 22:59 06:59 IntakeIntake Total 840 ml 650 ml BalanceBalance 840 ml 650 ml Results Results 24hrs Laboratory Tests Test 01/29/19 05:19 White Blood Count 8.2 Red Blood Count 3.69 L Hemoglobin 9.6 L Hematocrit 31.1 L Mean Corpuscular Volume 84.3 Mean Corpuscular Hemoglobin 26.0 L Mean Corpuscular Hemoglobin Concent 30.9 L Red Cell Distribution Width 16.9 H Platelet Count 376 Mean Platelet Volume 9.5 Immature Granulocytes % 0.400 Neutrophils % 66.9 Lymphocytes % 22.2 Monocytes % 8.3 Eosinophils % 1.6 Basophils % 0.6 Nucleated Red Blood Cells % 0.0 Immature Granulocytes # 0.030 Neutrophils # 5.5 Lymphocytes # 1.8 Monocytes # 0.7 Eosinophils # 0.1 Basophils # 0.1 Nucleated Red Blood Cells # 0.0 Sodium Level 140 Potassium Level 4.2 Chloride Level 101 Carbon Dioxide Level 33 H Anion Gap 6 Blood Urea Nitrogen 5 L Creatinine 0.56 Est Glomerular Filtrat Rate mL/min > 60 Glucose Level 101 Calcium Level 7.9 L Phosphorus Level 3.7 Magnesium Level 2.2 Medications Medication Current Medications IV Flush (NS 3 ml) 3 ml PER PROTOCOL IV Last administered on 01/28/19 21:13; Admin Dose 3 ML; Start 01/19/19 at 05:00 Ondansetron HCl (Zofran Inj) 4 mg Q6H PRN IV NAUSEA/VOMITING; Start 01/19/19 at 05:00 Acetaminophen/ Hydrocodone Bitart ([place] (5/325)) 1 tab Q6H PRN PO .MOD PAIN 4- 6 Last administered on 01/19/19 17:35; Admin Dose 1 TAB; Start 01/19/19 at 05:00 Morphine Sulfate (morphine) 2 mg Q4H PRN IV .SEVERE PAIN 7-10 Last administered on 01/27/19 02:10; Admin Dose 2 MG; Start 01/19/19 at 05:00 Acetaminophen (Tylenol Tab) 650 mg Q4H PRN PO MILD PAIN(1-3)OR ELEVATED TEMP Last administered on 01/27/19 12:23; Admin Dose 650 MG; Start 01/19/19 at 17:30 IV Flush (NS 10 ml) 10 ml PRN PRN IV IV PROTOCOL Last administered on 01/25/19 08:31; Admin Dose 10 ML; Start 01/20/19 at 17:00 Ceftriaxone Sodium 50 ml @ 100 mls/hr Q24H IVPB Last administered on 6/11/19at 21:09; Admin Dose 100 MLS/HR; Start 01/24/19 at 21:00 Famotidine (Pepcid) 20 mg Q12 PO Last administered on 01/29/19at 09:40; Admin Dose 20 MG; Start 01/25/19 at 21:00 SE RENE NP Jan 29, 2019 11:21
--- NOTE | 2019-01-29 13:13 | CONS ---
Assessment/Plan Assessment/Plan Hospital Course (Demo Recall) Patient is alert feels good denies pain still has a some drainage from her accordion drain Microbiology: Fluid culture grew strep Indwelling's: Patient has right sided abdominal accordion drain Antimicrobials: Rocephin Physical examination: This is a morbidly obese well-developed middle-aged woman who is alert in no distress. Head atraumatic normocephalic neck is supple chest rise symmetrical breath sounds diminished to bases. Heart: S1- S2 abdomen obese, soft bowel sounds present. Extremities without cyanosis Assessment: 1. Sepsis, present on admission 2. Large right lower lobe of the liver abscess, status post CT-guided drainage with catheter placement 3. Morbid obesity 4. Acute cholecystitis per CT of the abdomen 5. Status post ERCP and removal of existing pancreatic and common bile duct stent, postoperatively had hypotension and currently in ICU, stable Plan: Stable, anticipate dc on oral Augmentin for 7 more days when cleared by GI Consultation Date/Type/Reason Admit Date/Time Jan 19, 2019 at 04:13 Initial Consult Date Type of Consult id Date/Time of Note DATE: 01/29/19 TIME: 13:13 Exam/Review of Systems Exam Vitals Vital Signs Date Temp Pulse Resp B/P (MAP) Pulse Ox O2 O2 Flow FiO2 Time Delivery Rate 01/29/19 98.3 78 16 106/68 94 07:40 (81) 01/26/19 2.0 23:26 Intake and Output 01/28/19 01/28/19 01/29/19 1515:00 23:00 07:00 IntakeIntake Total 840 ml 650 ml BalanceBalance 840 ml 650 ml Results Result Diagram: 01/29/1951801/29/1919 Results 24hrs Laboratory Tests Test 01/29/19 05:19 White Blood Count 8.2 Red Blood Count 3.69 L Hemoglobin 9.6 L Hematocrit 31.1 L Mean Corpuscular Volume 84.3 Mean Corpuscular Hemoglobin 26.0 L Mean Corpuscular Hemoglobin Concent 30.9 L Red Cell Distribution Width 16.9 H Platelet Count 376 Mean Platelet Volume 9.5 Immature Granulocytes % 0.400 Neutrophils % 66.9 Lymphocytes % 22.2 Monocytes % 8.3 Eosinophils % 1.6 Basophils % 0.6 Nucleated Red Blood Cells % 0.0 Immature Granulocytes # 0.030 Neutrophils # 5.5 Lymphocytes # 1.8 Monocytes # 0.7 Eosinophils # 0.1 Basophils # 0.1 Nucleated Red Blood Cells # 0.0 Sodium Level 140 Potassium Level 4.2 Chloride Level 101 Carbon Dioxide Level 33 H Anion Gap 6 Blood Urea Nitrogen 5 L Creatinine 0.56 Est Glomerular Filtrat Rate mL/min > 60 Glucose Level 101 Calcium Level 7.9 L Phosphorus Level 3.7 Magnesium Level 2.2 Medications Medication Current Medications IV Flush (NS 3 ml) 3 ml PER PROTOCOL IV Last administered on 01/28/19 21:13; Admin Dose 3 ML; Start 01/19/19 at 05:00 Ondansetron HCl (Zofran Inj) 4 mg Q6H PRN IV NAUSEA/VOMITING; Start 01/19/19 at 05:00 Acetaminophen/ Hydrocodone Bitart ([place] (5/325)) 1 tab Q6H PRN PO .MOD PAIN 4- 6 Last administered on 01/19/19 17:35; Admin Dose 1 TAB; Start 01/19/19 at 05:00 Morphine Sulfate (morphine) 2 mg Q4H PRN IV .SEVERE PAIN 7-10 Last administered on 01/27/19 02:10; Admin Dose 2 MG; Start 01/19/19 at 05:00 Acetaminophen (Tylenol Tab) 650 mg Q4H PRN PO MILD PAIN(1-3)OR ELEVATED TEMP Last administered on 01/27/19 12:23; Admin Dose 650 MG; Start 01/19/19 at 17:30 IV Flush (NS 10 ml) 10 ml PRN PRN IV IV PROTOCOL Last administered on 01/25/19 08:31; Admin Dose 10 ML; Start 01/20/19 at 17:00 Ceftriaxone Sodium 50 ml @ 100 mls/hr Q24H IVPB Last administered on 01/28/19 21:09; Admin Dose 100 MLS/HR; Start 01/24/19 at 21:00 Famotidine (Pepcid) 20 mg Q12 PO Last administered on 01/29/19 09:40; Admin Dose 20 MG; Start 01/25/19 at 21:00 MANDA LUNA NP Jan 29, 2019 13:13
[2019-01-29 15:49] VITALS: BP 105/59; PULSE 87; RESP 16
[2019-01-29] MEDS: CEFTRIAXONE 1 GM/NS 50 ML IVPB SCH (20:18)
[2019-01-29 20:22] VITALS: BP 103/71; PULSE 95; RESP 17
[2019-01-30 01:28] VITALS: BP 103/64; PULSE 83; RESP 16
[2019-01-30 07:56] VITALS: BP 96/54; PULSE 78; RESP 18
[2019-01-30] MEDS: FAMOTIDINE 20 MG TAB PO SCH ×2 (08:33→20:51)
--- NOTE | 2019-01-30 10:54 | CONS ---
Assessment/Plan Assessment/Plan Hospital Course (Demo Recall) All noted, no acute events Microbiology: Fluid culture grew strep Indwelling's: Patient has right sided abdominal accordion drain Antimicrobials: Rocephin Physical examination: This is a morbidly obese well-developed middle-aged woman who is alert in no distress. Head atraumatic normocephalic neck is supple chest rise symmetrical breath sounds diminished to bases. Heart: S1-S2 abdomen obese, soft bowel sounds present. Extremities without cyanosis Assessment: 1. Sepsis, present on admission 2. Large right lower lobe of the liver abscess, status post CT-guided drainage with catheter placement 3. Morbid obesity 4. Acute cholecystitis per CT of the abdomen 5. Status post ERCP and removal of existing pancreatic and common bile duct stent, postoperatively had hypotension and currently in ICU, stable Plan: Stable, anticipate dc on oral Augmentin for 6 more days when cleared by GI Consultation Date/Type/Reason Admit Date/Time Jan 19, 2019 at 04:13 Initial Consult Date Type of Consult id Date/Time of Note DATE: 01/30/19 TIME: 10:53 Exam/Review of Systems Exam Vitals Vital Signs Date Temp Pulse Resp B/P (MAP) Pulse Ox O2 O2 Flow FiO2 Time Delivery Rate 01/30/19 97.9 78 18 96/54 (68) 96 07:56 01/26/19 2.0 23:26 Intake and Output 01/29/19 01/29/19 01/30/19 1515:00 23:00 07:00 IntakeIntake Total 760 ml 50 ml OutputOutput Total 8 ml 2 ml BalanceBalance 760 ml 42 ml -2 ml Results Result Diagram: 01/30/19 0513 01/30/19 0513 Results 24hrs Laboratory Tests Test 01/30/19 05:13 White Blood Count 7.0 Red Blood Count 3.48 L Hemoglobin 9.3 L Hematocrit 29.8 L Mean Corpuscular Volume 85.6 Mean Corpuscular Hemoglobin 26.7 L Mean Corpuscular Hemoglobin Concent 31.2 L Red Cell Distribution Width 17.0 H Platelet Count 336 Mean Platelet Volume 9.4 Immature Granulocytes % 0.300 Neutrophils % 59.1 Lymphocytes % 28.7 Monocytes % 9.1 Eosinophils % 2.1 Basophils % 0.7 Nucleated Red Blood Cells % 0.0 Immature Granulocytes # 0.020 Neutrophils # 4.2 Lymphocytes # 2.0 Monocytes # 0.6 Eosinophils # 0.2 Basophils # 0.1 Nucleated Red Blood Cells # 0.0 Sodium Level 139 Potassium Level 4.0 Chloride Level 100 Carbon Dioxide Level 31 Anion Gap 8 Blood Urea Nitrogen 7 Creatinine 0.56 Est Glomerular Filtrat Rate mL/min > 60 Glucose Level 99 Calcium Level 8.2 L Phosphorus Level 4.0 Magnesium Level 2.2 Medications Medication Current Medications IV Flush (NS 3 ml) 3 ml PER PROTOCOL IV Last administered on 01/28/19 21:13; Admin Dose 3 ML; Start 01/19/19 at 05:00 Ondansetron HCl (Zofran Inj) 4 mg Q6H PRN IV NAUSEA/VOMITING; Start 01/19/19 at 05:00 Acetaminophen/ Hydrocodone Bitart ([place] (5/325)) 1 tab Q6H PRN PO .MOD PAIN 4- 6 Last administered on 01/19/19 17:35; Admin Dose 1 TAB; Start 01/19/19 at 05:00 Morphine Sulfate (morphine) 2 mg Q4H PRN IV .SEVERE PAIN 7-10 Last administered on 01/27/19 02:10; Admin Dose 2 MG; Start 01/19/19 at 05:00 Acetaminophen (Tylenol Tab) 650 mg Q4H PRN PO MILD PAIN(1-3)OR ELEVATED TEMP Last administered on 01/27/19 12:23; Admin Dose 650 MG; Start 01/19/19 at 17:30 IV Flush (NS 10 ml) 10 ml PRN PRN IV IV PROTOCOL Last administered on 01/25/19 08:31; Admin Dose 10 ML; Start 01/20/19 at 17:00 Ceftriaxone Sodium 50 ml @ 100 mls/hr Q24H IVPB Last administered on 01/29/19 20:18; Admin Dose 100 MLS/HR; Start 01/24/19 at 21:00 Famotidine (Pepcid) 20 mg Q12 PO Last administered on 01/30/19 08:33; Admin Dose 20 MG; Start 01/25/19 at 21:00 MANDA LUNA NP Jan 30, 2019 10:54
--- NOTE | 2019-01-30 11:05 | PN ---
Date/Time of Note Date/Time of Note DATE: 01/30/19 TIME: 11:04 Assessment/Plan VTE Prophylaxis Risk score (from Ns)>0 risk: 2 SCD applied (from Ns): No SCD contraindicated: other Pharmacological prophylaxis: NA/contraindicated Pharm contraindication: low risk/ambulating Lines/Catheters IV Catheter Type (from [facility]): PICC Line Central line still needed: Yes Urinary Cath still in place: No Assessment/Plan Hospital Course SUBJECTIVE: Denies any abdominal pain. Denies any dyspnea. OBJECTIVE: Physical Exam General: 38 year-old female lying in bed in no apparent distress. HEENT: Normocephalic, atraumatic. Eyes: Anicteric sclerae, conjunctivae clear. ENT: Nasal septum midline, oral mucosa is dry. Neck supple, no JVD noticed. Respiratory: Bilaterally clear breath sounds. No use of accessory muscles of respiration. No adventitious breath sounds. Cardiovascular: S1, S2 heard. No murmurs or gallops. Abdomen: Soft and nondistended. Right upper quadrant drain that is draining thick secretions. Genitourinary: Deferred. Extremities: No cyanosis, no clubbing, no edema. Peripheral pulses palpable. Neurologic: Cranial nerves II through XII grossly intact. The patient is awake, alert, and oriented. Skin: Normal skin turgor. No skin rashes. Labs & Vitals per chart ASSESSMENT & PLAN 38-year-old female with recent history of gallstone pancreatitis status post CBD stenting and pancreatic duct stent placement on 12/03/2018, who came to the emergency room with chief complaint of abdominal pain and right-sided flank pain with CT showing 17 cm complex collection of gas and fluid expanding the right lobe of the liver consistent with an abscess, who was admitted to inpatient setting for treatment and evaluation. 1. Hepatic abscess. Status post CT-guided drainage on 01/19/2019 Fluid culture showing alpha hemolytic Streptococcus and beta-hemolytic Streptococcus. On antimicrobials as per ID. 2. Status post sepsis with bandemia, tachypnea, and tachycardia secondary to underlying liver abscess. Sepsis criteria: Bands>10%,Tachypnea>20, HR>90. Infectious source: Intraabdominal source (liver abscess) Continue management as per #1. 3. History of gallstone pancreatitis, S/P biliary stent and pancreatic duct stent placement on 12/03/2018. Status post ERCP and removal of existing pancreatic duct and CBD stent with placement of a stent to the right hepatic duct and to the left hepatic duct on 01/23/2019. 4. Fluids, electrolytes, and nutrition. Regular diet. 5. Normocytic anemia. Etiology could be multifactorial. Status post 1 unit of PRBC transfusion. 6. Right sided pleural effusion. Improving. Status post diuresis. Continue diuresis as clinically indicated. 7. DVT prophylaxis Bilateral SCDs 8. Plan. Continue antimicrobials as per ID. Continue pain control. Will defer discontinuing the drain to gastroenterology. DC home once the drain is discontinued. The patient was seen in collaboration with Dr. Negro. Result Diagram: 01/30/1951201/30/19512 Results 24hrs Laboratory Tests Test 01/30/19 05:13 White Blood Count 7.0 Red Blood Count 3.48 L Hemoglobin 9.3 L Hematocrit 29.8 L Mean Corpuscular Volume 85.6 Mean Corpuscular Hemoglobin 26.7 L Mean Corpuscular Hemoglobin Concent 31.2 L Red Cell Distribution Width 17.0 H Platelet Count 336 Mean Platelet Volume 9.4 Immature Granulocytes % 0.300 Neutrophils % 59.1 Lymphocytes % 28.7 Monocytes % 9.1 Eosinophils % 2.1 Basophils % 0.7 Nucleated Red Blood Cells % 0.0 Immature Granulocytes # 0.020 Neutrophils # 4.2 Lymphocytes # 2.0 Monocytes # 0.6 Eosinophils # 0.2 Basophils # 0.1 Nucleated Red Blood Cells # 0.0 Sodium Level 139 Potassium Level 4.0 Chloride Level 100 Carbon Dioxide Level 31 Anion Gap 8 Blood Urea Nitrogen 7 Creatinine 0.56 Est Glomerular Filtrat Rate mL/min > 60 Glucose Level 99 Calcium Level 8.2 L Phosphorus Level 4.0 Magnesium Level 2.2 Exam/Review of Systems Exam Vitals Vital Signs Date Temp Pulse Resp B/P (MAP) Pulse Ox O2 O2 Flow FiO2 Time Delivery Rate 01/30/19 97.9 78 18 96/54 (68) 96 07:56 01/26/19 2.0 23:26 Intake and Output 01/29/19 01/29/19 01/30/19 1515:00 23:00 07:00 IntakeIntake Total 760 ml 50 ml OutputOutput Total 8 ml 2 ml BalanceBalance 760 ml 42 ml -2 ml Results Results 24hrs Laboratory Tests Test 01/30/19 05:13 White Blood Count 7.0 Red Blood Count 3.48 L Hemoglobin 9.3 L Hematocrit 29.8 L Mean Corpuscular Volume 85.6 Mean Corpuscular Hemoglobin 26.7 L Mean Corpuscular Hemoglobin Concent 31.2 L Red Cell Distribution Width 17.0 H Platelet Count 336 Mean Platelet Volume 9.4 Immature Granulocytes % 0.300 Neutrophils % 59.1 Lymphocytes % 28.7 Monocytes % 9.1 Eosinophils % 2.1 Basophils % 0.7 Nucleated Red Blood Cells % 0.0 Immature Granulocytes # 0.020 Neutrophils # 4.2 Lymphocytes # 2.0 Monocytes # 0.6 Eosinophils # 0.2 Basophils # 0.1 Nucleated Red Blood Cells # 0.0 Sodium Level 139 Potassium Level 4.0 Chloride Level 100 Carbon Dioxide Level 31 Anion Gap 8 Blood Urea Nitrogen 7 Creatinine 0.56 Est Glomerular Filtrat Rate mL/min > 60 Glucose Level 99 Calcium Level 8.2 L Phosphorus Level 4.0 Magnesium Level 2.2 Medications Medication Current Medications IV Flush (NS 3 ml) 3 ml PER PROTOCOL IV Last administered on 01/28/19at 21:13; Admin Dose 3 ML; Start 01/19/19 at 05:00 Ondansetron HCl (Zofran Inj) 4 mg Q6H PRN IV NAUSEA/VOMITING; Start 01/19/19 at 05:00 Acetaminophen/ Hydrocodone Bitart ([place] (5/325)) 1 tab Q6H PRN PO .MOD PAIN 4- 6 Last administered on 01/19/19at 17:35; Admin Dose 1 TAB; Start 01/19/19 at 05:00 Morphine Sulfate (morphine) 2 mg Q4H PRN IV .SEVERE PAIN 7-10 Last administered on 01/27/19at 02:10; Admin Dose 2 MG; Start 01/19/19 at 05:00 Acetaminophen (Tylenol Tab) 650 mg Q4H PRN PO MILD PAIN(1-3)OR ELEVATED TEMP Last administered on 01/27/19 12:23; Admin Dose 650 MG; Start 01/19/19 at 17:30 IV Flush (NS 10 ml) 10 ml PRN PRN IV IV PROTOCOL Last administered on 01/25/19 08:31; Admin Dose 10 ML; Start 01/20/19 at 17:00 Ceftriaxone Sodium 50 ml @ 100 mls/hr Q24H IVPB Last administered on 01/29/19at 20:18; Admin Dose 100 MLS/HR; Start 01/24/19 at 21:00 Famotidine (Pepcid) 20 mg Q12 PO Last administered on 01/30/19at 08:33; Admin Dose 20 MG; Start 01/25/19 at 21:00 SE RENE NP Jan 30, 2019 11:05
[2019-01-30 14:30] VITALS: BP 101/60; PULSE 88; RESP 18
[2019-01-30 20:00] VITALS: BP 106/68; PULSE 92; RESP 17
[2019-01-30] MEDS: CEFTRIAXONE 1 GM/NS 50 ML IVPB SCH (20:52)
[2019-01-31 02:01] VITALS: BP 100/60; PULSE 86; RESP 18
[2019-01-31 07:57] VITALS: BP 125/71; PULSE 81; RESP 20
[2019-01-31 08:01] VITALS: BP 110/70; PULSE 89; RESP 18
[2019-01-31] MEDS: FAMOTIDINE 20 MG TAB PO SCH (09:21)
--- NOTE | 2019-01-31 12:00 | CONS ---
Assessment/Plan Assessment/Plan Hospital Course (Demo Recall) All noted, no acute events Microbiology: Fluid culture grew strep Indwelling's: Patient has right sided abdominal accordion drain Antimicrobials: Rocephin Physical examination: This is a morbidly obese well-developed middle-aged woman who is alert in no distress. Head atraumatic normocephalic neck is supple chest rise symmetrical breath sounds diminished to bases. Heart: S1-S2 abdomen obese, soft bowel sounds present. Extremities without cyanosis Assessment: 1. Sepsis, present on admission 2. Large right lower lobe of the liver abscess, status post CT-guided drainage with catheter placement 3. Morbid obesity 4. Acute cholecystitis per CT of the abdomen 5. Status post ERCP and removal of existing pancreatic and common bile duct stent, postoperatively had hypotension and currently in ICU, stable Plan: Remains stable, anticipate dc on oral Augmentin for 5 more days when cleared by GI Consultation Date/Type/Reason Admit Date/Time Jan 19, 2019 at 04:13 Initial Consult Date Type of Consult id Date/Time of Note DATE: 01/31/19 TIME: 11:59 Exam/Review of Systems Exam Vitals Vital Signs Date Temp Pulse Resp B/P (MAP) Pulse Ox O2 O2 Flow FiO2 Time Delivery Rate 01/31/19 97.7 89 18 110/70 97 08:01 (83) Intake and Output 01/30/19 01/30/19 01/31/19 1515:00 23:00 07:00 IntakeIntake Total 800 ml BalanceBalance 800 ml Results Result Diagram: 01/31/19 0544 01/31/19 0544 Results 24hrs Laboratory Tests Test 01/31/19 05:44 White Blood Count 6.3 Red Blood Count 3.44 L Hemoglobin 9.1 L Hematocrit 29.5 L Mean Corpuscular Volume 85.8 Mean Corpuscular Hemoglobin 26.5 L Mean Corpuscular Hemoglobin Concent 30.8 L Red Cell Distribution Width 17.2 H Platelet Count 316 Mean Platelet Volume 9.8 Immature Granulocytes % 0.200 Neutrophils % 56.9 Lymphocytes % 29.4 Monocytes % 10.0 Eosinophils % 2.9 Basophils % 0.6 Nucleated Red Blood Cells % 0.0 Immature Granulocytes # 0.010 Neutrophils # 3.6 Lymphocytes # 1.9 Monocytes # 0.6 Eosinophils # 0.2 Basophils # 0.0 Nucleated Red Blood Cells # 0.0 Sodium Level 138 Potassium Level 3.9 Chloride Level 103 Carbon Dioxide Level 28 Anion Gap 7 Blood Urea Nitrogen 12 Creatinine 0.51 Est Glomerular Filtrat Rate mL/min > 60 Glucose Level 106 Calcium Level 8.1 L Phosphorus Level 4.4 Magnesium Level 2.2 Medications Medication Current Medications IV Flush (NS 3 ml) 3 ml PER PROTOCOL IV Last administered on 01/28/19 21:13; Admin Dose 3 ML; Start 01/19/19 at 05:00 Ondansetron HCl (Zofran Inj) 4 mg Q6H PRN IV NAUSEA/VOMITING; Start 01/19/19 at 05:00 Acetaminophen/ Hydrocodone Bitart ([place] (5/325)) 1 tab Q6H PRN PO .MOD PAIN 4- 6 Last administered on 01/19/19 17:35; Admin Dose 1 TAB; Start 01/19/19 at 05:00 Morphine Sulfate (morphine) 2 mg Q4H PRN IV .SEVERE PAIN 7-10 Last administered on 01/27/19 02:10; Admin Dose 2 MG; Start 01/19/19 at 05:00 Acetaminophen (Tylenol Tab) 650 mg Q4H PRN PO MILD PAIN(1-3)OR ELEVATED TEMP Last administered on 01/27/19 12:23; Admin Dose 650 MG; Start 01/19/19 at 17:30 IV Flush (NS 10 ml) 10 ml PRN PRN IV IV PROTOCOL Last administered on 01/30/19 12:20; Admin Dose 10 ML; Start 01/20/19 at 17:00 Ceftriaxone Sodium 50 ml @ 100 mls/hr Q24H IVPB Last administered on 01/30/19 20:52; Admin Dose 100 MLS/HR; Start 01/24/19 at 21:00 Famotidine (Pepcid) 20 mg Q12 PO Last administered on 01/31/19 09:21; Admin Dose 20 MG; Start 01/25/19 at 21:00 MANDA LUNA NP Jan 31, 2019 12:00
--- NOTE | 2019-01-31 12:25 | CONS ---
DATE OF ADMISSION: 01/19/2019 DATE OF CONSULTATION: HISTORY OF PRESENT ILLNESS: The patient has had a liver abscess. Percutaneously the liver abscess w as drained. The drainage tube is currently showing almost no output. It was only 10 mL yesterday. On examination, she appears to be alert and not in distress. The abdomen is unremarkable. LABORATORY WORKUP: WBC count 6300. The status post percutaneous drainage of the liver abscess, almost a little pus drained yesterday and status post ERCP and placement of a CBD stent for internal drainage. It seems to me at this time it is appropriate to remove the drainage catheter from the liver abscess and I left a message for the radiologist to see if that can be done. I discussed with nurse [email or web address] anurag. Dictated By: DILCIA LYMAN MD NC/NTS Conf#: [id number] DID#: [id number] CC: FAISAL MCFARLAND MD;*EndCC*
[2019-01-31] MEDS ORDERED: AMOX1TAB10 PO (13:51)
--- NOTE | 2019-01-31 13:53 | PDOCDIS ---
Discharge Instructions CONDITION [id number] Patient Condition: [id number] Stable FOLLOW UP/APPOINTMENTS Follow-up Plan Darwin Cantrell MD Specialty: Gastroenterology Office [id number] [place] [address] [place] [address] Office OTHER ORDERS: Other Orders: 1. Complete the course of antibiotics. 2. Follow a low-cholesterol diet as tolerated. 3. Follow-up with your primary care physician in 1 week. Have your primary care physician arrange for outpatient gastroenterology (Dr. Cantrell) follow-up within the next 4 weeks. 4. Please go to the nearest emergency room if you have persistent fevers, abdominal pain, worsening jaundice, or any other unusual signs or symptoms. SE RENE NP Jan 31, 2019 13:53
--- NOTE | 2019-01-31 14:44 | DS ---
Date/Time of Note Date/Time of Note DATE: 01/31/19 TIME: 14:43 Discharge Summary Admission/Discharge Info Admit Date/Time Jan 19, 2019 at 04:13 Discharge Date/Time Discharge Diagnosis 1. Hepatic abscess. Status post CT-guided drainage on 01/19/2019 2. Status post sepsis with bandemia, tachypnea, and tachycardia secondary to underlying liver abscess. 3. History of gallstone pancreatitis, S/P biliary stent and pancreatic duct stent placement on 12/03/2018. Status post ERCP and removal of existing pancreatic duct and CBD stent with placement of a stent to the right hepatic duct and to the left hepatic duct on 01/23/2019. 4. Normocytic anemia. 5. Right pleural effusion. Patient Condition: Stable Consults 1. Dilcia Cantrell MD, Gastroenterology. 2. Kareem Stock MD, General Surgery. 3. Ellis Galvan MD, Infectious Diseases. Procedures G.I. LAB PROCEDURE DATE OF PROCEDURE: 01/23/2019 PROCEDURES: ERCP and removal of existing pancreatic duct and CBD stent removal. POSTOPERATIVE DIAGNOSES: Upon injection into the biliary system, there is a leak noted from the right hepatic duct and also at this time it is known that patient has hepatic abscess. It is possible that the right hepatic leak is leading to the right hepatic abscess and because of this, stent was placed into the right hepatic duct and one into the left hepatic duct. [place] [id number] Radiology Main Line: [phone] DIAGNOSTIC IMAGING REPORT Patient: TAM CENTENO : 1980 Age: 38 Sex: F [id number] [id number] DOS: 01/19/19 0000 Ordering MD: DILCIA CANTRELL MD [facility]: [facility] CT guided liver abscess drainage procedure CLINICAL INDICATION: Liver abscess TECHNIQUE: Informed written consent was obtained. A time-out was performed. A preliminary cna hha CT scan of the abdomen was performed. Markers were placed on the skin for localization. The overlying skin of the right upper quadrant was prepped and draped in the usual sterile fashion. Approximately 15 cc of lidocaine was injected locally for pain control. A 5-[employer] [employer] catheter was introduced into the liver abscess. A wire was placed through the catheter, the tract was dilated, and a 10 [place] locking pigtail catheter was placed into the fluid collection without difficulty. Approximately 650 cc of purulent material was aspirated without difficulty and sent to the laboratory for further analys is. The patient tolerated procedure well. No complications occurred. Postprocedural CT scan revealed no complications. No significant hemorrhage or other abnormality was seen. DICOM images are available. One or more of the following dose reduction techniques were used: automated exposure control, adjustment of the mA and/or kV according to patient size, use of iterative reconstruction technique. CTDI = 14.3, 20.2, 22.3 mGy. DLP = 1373 mGy-cm. DICOM images are available. COMPARISON: CT, 01/19/2019 FINDINGS: Successful percutaneous drainage of a liver abscess. Large amount of purulent material was aspirated and sent to the laboratory for further analysis. IMPRESSION: Successful CT guided liver abscess drainage procedure. No complications occurred. Hx of Present Illness This is a 38-year-old female with recent history of gallstone pancreatitis status post CBD stenting and pancreatic duct stent placement on 12/03/2018, who came to the emergency room with chief complaint of abdominal pain and right- sided flank pain with CT showing 17 cm complex collection of gas and fluid expanding the right lobe of the liver consistent with an abscess, who was admitted to inpatient setting for treatment and evaluation. Hospital Course A general surgery and gastroenterology consult was obtained. The patient was started on empiric antimicrobials. Infectious disease consult was also obtained. The patient had evidence of sepsis with bandemia, tachypnea, and tachycardia present on admission, secondary to underlying liver abscess. General surgery evaluated the patient and recommended IR guided drainage of the liver abscess. The patient underwent a CT-guided drainage on 01/19/2019 with fluid cultures showing alpha hemolytic Streptococci and beta-hemolytic Streptococci. The patient was maintained on antimicrobials as per ID. The patient's sepsis resolved with antimicrobial therapy. The patient continued to have significant amount of fluid coming out of the percutaneous liver drain until 01/31/2019 when gastroenterology ordered it to be discontinued by IR. The patient has a prior history of gallstone pancreatitis and she is status post biliary and pancreatic stent placement on 12/03/2018. The patient underwent an ERCP with removal of exiting pancreatic duct and CBD stent with placement of a stent to the right hepatic duct and left hepatic duct on 01/23/2019. Placement of stents in bilateral hepatic ducts also helped in the internal drainage of the fluid from the liver bed and improvement of the patient's clinical symptoms. The patient had a short stay in the intensive care unit because of sepsis and some respiratory distress that was contributed by right-sided pleural effusion, most probably secondary to underlying liver abscess. The patient was treated with spot diuretics and supplemental oxygen with improvement in the patient's respiratory symptoms. Once the patient was stable, the patient was moved out of the intensive care unit. The patient was also noticed to have normocytic anemia and the patient received 1 unit of PRBC transfusion during this hospitalization. The patient had a relatively long hospital course because of the patient's complicated clinical course that required multiple procedures and ICU stay. The patient is stable to be discharged home on oral antibiotics, with outpatient gastroenterology follow-up today. The patient denied any complaints at the time of discharge. Discharge Instructions 1. Complete the course of antibiotics. 2. Follow a low-cholesterol diet as tolerated. 3. Follow-up with your primary care physician in 1 week. Have your primary care physician arrange for outpatient gastroenterology (Dr. Cantrell) follow-up within the next 4 weeks. 4. Please go to the nearest emergency room if you have persistent fevers, abdominal pain, worsening jaundice, or any other unusual signs or symptoms. The patient verbalized understanding of her discharge instructions. At this time I would like to thank all the consultants for seeing the patient, doing the necessary procedures, and providing clinical recommendations. The patient was seen in collaboration with Dr. Negro. Home Meds Active Scripts Amoxicillin/Potassium Clav (Amox-Clav 875-125 mg Tablet) 875-125 mg Tab, 1 TAB PO BID for 5 Days, #10 TAB Prov:SE RENE NP 01/31/19 Discontinued Scripts Ondansetron (Ondansetron Odt) 4 Mg Tab.rapdis, 4 MG PO Q6H PRN for NAUSEA AND/OR VOMITING, #10 TAB Prov:ALLAN GONZALEZ PA-C 12/11/18 Ibuprofen* (Motrin*) 600 Mg Tab, 600 MG PO Q6, #30 TAB Prov:ALLAN GONZALEZ PA-C 12/11/18 Famotidine* (Pepcid*) 20 Mg Tablet, 20 MG PO BID for 4 Days, #30 TAB Prov:ALLAN GONZALEZ PA-C 12/11/18 Ciprofloxacin Hcl* (Ciprofloxacin Hcl*) 500 Mg Tablet, 500 MG PO BID for 7 Days, TAB Prov:ALLAN GONZALEZ PA-C 12/11/18 Follow-up Plan Dilcia Cantrell MD Specialty: Gastroenterology Office [id number] [place] [address] Office Primary Care Provider Care Physician No Primary Time spent on discharge: > 30 minutes Pending Labs Laboratory Tests Test 01/31/19 05:44 White Blood Count 6.3 10^3/ul (4.8-10.8) Red Blood Count 3.44 10^6/ul (4.20-5.40) Hemoglobin 9.1 g/dl (12.0-16.0) Hematocrit 29.5 % (37.0-47.0) Mean Corpuscular Volume 85.8 fl (82.0-101.0) Mean Corpuscular Hemoglobin 26.5 pg (29.0-33.0) Mean Corpuscular Hemoglobin Concent 30.8 g/dl (32.0-37.0) Red Cell Distribution Width 17.2 % (11.5-14.5) Platelet Count 316 10^3/UL (140-415) Mean Platelet Volume 9.8 fl (7.4-10.4) Immature Granulocytes % 0.200 % (0.001-0.429) Neutrophils % 56.9 % (39.0-77.0) Lymphocytes % 29.4 % (15.0-51.0) Monocytes % 10.0 % (0.0-11.0) Eosinophils % 2.9 % (0.0-7.0) Basophils % 0.6 % (0.0-2.0) Nucleated Red Blood Cells % 0.0 /100WBC (0.0-0.0) Immature Granulocytes # 0.010 10^3/ul (0.0-0.031) Neutrophils # 3.6 10^3/ul (1.6-7.5) Lymphocytes # 1.9 10^3/ul (0.8-2.9) Monocytes # 0.6 10^3/ul (0.3-0.9) Eosinophils # 0.2 10^3/ul (0.0-0.5) Basophils # 0.0 10^3/ul (0.0-0.1) Nucleated Red Blood Cells # 0.0 10^3/ul (0.0-0.0) Sodium Level 138 mmol/L (135-144) Potassium Level 3.9 mmol/L (3.5-5.1) Chloride Level 103 mmol/L (97-110) Carbon Dioxide Level 28 mmol/L (21-31) Anion Gap 7 (5-13) Blood Urea Nitrogen 12 mg/dl (7-20) Creatinine 0.51 mg/dl (0.44-1.00) Est Glomerular Filtrat Rate mL/min > 60 mL/min (>60) Glucose Level 106 mg/dl (70-220) Calcium Level 8.1 mg/dl (8.4-10.2) Phosphorus Level 4.4 mg/dl (2.5-4.9) Magnesium Level 2.2 mg/dl (1.7-2.5) SE RENE NP Jan 31, 2019 14:44
[2019-01-31 15:00] VITALS: BP 106/64; PULSE 91; RESP 20
--- NOTE | 2019-01-31 15:51 | PN ---
Assessment/Plan VTE Prophylaxis Risk score (from Nsg)>0 risk: 2 Lines/Catheters Urinary Cath still in place: No Assessment/Plan Hospital Course Result Diagram: 01/31/19 0544 01/31/19 0544 Results 24hrs Laboratory Tests Test 01/31/19 05:44 White Blood Count 6.3 Red Blood Count 3.44 L Hemoglobin 9.1 L Hematocrit 29.5 L Mean Corpuscular Volume 85.8 Mean Corpuscular Hemoglobin 26.5 L Mean Corpuscular Hemoglobin Concent 30.8 L Red Cell Distribution Width 17.2 H Platelet Count 316 Mean Platelet Volume 9.8 Immature Granulocytes % 0.200 Neutrophils % 56.9 Lymphocytes % 29.4 Monocytes % 10.0 Eosinophils % 2.9 Basophils % 0.6 Nucleated Red Blood Cells % 0.0 Immature Granulocytes # 0.010 Neutrophils # 3.6 Lymphocytes # 1.9 Monocytes # 0.6 Eosinophils # 0.2 Basophils # 0.0 Nucleated Red Blood Cells # 0.0 Sodium Level 138 Potassium Level 3.9 Chloride Level 103 Carbon Dioxide Level 28 Anion Gap 7 Blood Urea Nitrogen 12 Creatinine 0.51 Est Glomerular Filtrat Rate mL/min > 60 Glucose Level 106 Calcium Level 8.1 L Phosphorus Level 4.4 Magnesium Level 2.2 Exam/Review of Systems Exam Vitals Medications Medication SE RENE NP Jan 31, 2019 15:51
== END 2019-01-31 18:55 | disposition home or self-care (01) | DRG 853 ==
LOC: E/R 00:48 → 6WM 04:13 → ICU 01-20 08:25 → 6WM 01-21 22:02 → ICU 01-23 20:59 → 2NE 01-24 12:15
PROVIDERS: ADMIT Internal Medicine; ATTEND Internal Medicine
PROC: 0F913ZX Drainage of Right Lobe Liver, Percutaneous Approach, Diagnostic (ICD-10-PCS; 2019-01-19)
PROC: 30233N1 Transfusion of Nonautologous Red Blood Cells into Peripheral Vein, Percutaneous Approach (ICD-10-PCS; 2019-01-20)
PROC: 02HV33Z Insertion of Infusion Device into Superior Vena Cava, Percutaneous Approach (ICD-10-PCS; 2019-01-20)
PROC: 0FPB8DZ Removal of Intraluminal Device from Hepatobiliary Duct, Via Natural or Artificial Opening Endoscopic (ICD-10-PCS; 2019-01-24)
PROC: 0FPD8DZ Removal of Intraluminal Device from Pancreatic Duct, Via Natural or Artificial Opening Endoscopic (ICD-10-PCS; 2019-01-24)
PROC: 0F768DZ Dilation of Left Hepatic Duct with Intraluminal Device, Via Natural or Artificial Opening Endoscopic (ICD-10-PCS; 2019-01-24)
PROC: 0F758DZ Dilation of Right Hepatic Duct with Intraluminal Device, Via Natural or Artificial Opening Endoscopic (ICD-10-PCS; 2019-01-24)
PROC: 0WPF30Z Removal of Drainage Device from Abdominal Wall, Percutaneous Approach (ICD-10-PCS; principal; 2019-01-31)
DX: A41.9 Sepsis, unspecified organism (principal); K75.0 Abscess of liver; R65.21 Severe sepsis with septic shock; K80.00 Calculus of gallbladder with acute cholecystitis without obstruction; J90 Pleural effusion, not elsewhere classified; R00.1 Bradycardia, unspecified; E66.01 Morbid (severe) obesity due to excess calories; Z68.28 Body mass index [BMI] 28.0-28.9, adult; D64.9 Anemia, unspecified; Z87.19 Personal history of other diseases of the digestive system; I95.9 Hypotension, unspecified
CPT/HCPCS: 36415; 36430; 36569; 36589; 71045; 74176; 74177; 74330; 76705; 76937; 77012; 80048; 80053; 80202; 81001; 81025; 82962; 83036; 83605; 83690; 83735; 84100; 84484; 84703; 85025; 85610; 85651; 85730; 86140; 86850; 86900; 86901; 86920; 87070; 87081; 87086; 93005; 96365; 96375; C1729; C2617; J0131; J0461; J0692; J0696; J1170; J1885; J1940; J2250; J2270; J2405; J2543; J2710; J3010; J3370; J3475; J3480; J7030; J7040; J7050; J7120; P9016; P9045; Q9967